=== PATIENT | male | born 1945 | race Caucasian/White ===

== ENCOUNTER 2016-07-10 08:53 | Outpatient (RCR) | payer MEDICARE, OTHER ==
--- OUTSIDE RECORDS SUMMARY | 2016-04-16 08:59 | XMS REPORT | Continuity of Care Document ---
Author Author [facility] Organization [facility] Address Unknown Phone Unavailable Care Team Providers Care Ichthyologist Name Role Phone PATRIZIA RAY MD PCP Insurance Providers Payer Name Policy Number Subscriber Name Relationship [employer] [id number] Zakia Armstrong Self / Same As Patient Comm Crossover Enter Ins Name [id number] Zakia Armstrong Self / Same As Patient Advance Directives Directive Response Recorded Date/Time Advance Directives No 01/06/16 1:15pm Health Care Power of Pastrycook'S Assistant No 01/06/16 1:15pm Organ Donor No 01/06/16 1:15pm Resuscitation Status Full Code 01/06/16 1:15pm Problems Active Problems Medical Problem Onset Date Status Anemia Unknown Acute Hematuria, gross Unknown Acute Pulmonary nodule seen on imaging study Unknown Acute Urinary retention with incomplete bladder emptying Unknown Acute Medications Current Home Medications Medication Dose Units Route Directions Days/Qty Instructions Start Date Hydrocodone/Acetaminophen 1 Each 1 Tab Oral Every 6 Hours as needed for Pain 60 01/12/16 Potassium Chloride 20 Meq 20 Meq Oral Daily@0700 30 01/12/16 Pantoprazole Sodium 40 Mg 40 Mg Oral Daily@0700 30 01/12/16 [Finasteride] 5 Mg 5 Mg Oral Daily@0900 30 01/12/16 Polyethylene Glycol 3350 17 Gm 17 Gm Oral Twice A Day 60 01/12/16 Tamsulosin Hcl 0.4 Mg 0.4 Mg Oral Daily 30 01/12/16 Past Home Medications Medication Directions Ordered Status Lisinopril 20 Mg Tab, 20 Mg Oral Daily 05/24/11 Discontinued Clobetasol Propionate 15 Gm Cream.gm., 0 Topical Twice A Day 05/24/11 Discontinued Cefuroxime Axetil (Ceftin) 500 Mg Tablet, 1 Each Oral Twice A Day 05/25/11 Discontinued Oxycodone Hcl/Acetaminophen 1 Each Tablet, 1 - 2 Each Oral Q4-6H Prn Discontinued Social History Social History Problem Response Recorded Date/Time Alcohol Use Denies Use 12/29/2015 11:19am Recreational Drug Use No 12/29/2015 11:19am Do you dip or chew tobacco? No 09/07/2015 3:55pm Hospital Discharge Instructions Patient Instructions Physician Instructions Patient Instructions/FollowUp: Dr Ray in [address] Castro as scheduled Restrict oral fluids to 1500cc/day Patient Problems: Ileus s/p Pneumonia Lung cancer s/p resection Colon cancer s/p resection [facility] [place] DISCHARGE ORDERS Height (Feet): 5 Height (Inches): 11.00 Weight (Pounds): 208 Weight (Ounces): 4.0 Reason Pt Homebound recent bowel surgery, pneumonia I Have Seen Pt Mqbl-[id number]: Yes Date of Face to Face: Jan 12, 2016 Discharged To: Home Diagnosis/Conditions HH Order: Medication administration Monitor vitals Monitor labs including sodium *I certify that based on my findings, the following services are medically necessary Home Health Services: Services: Nursing Services, Stitch Bonding Machine Operator-Evaluate & Treat, Physical Therapy-Evaluate & Treat My clinical findings support the need for the above services; see Diagnosis. Dicharge Diet: Low Residue Daily Activity as Tolerated: Yes New, Converted, or Re-newed RX: Transmited to Pharmacy I certify that this patient is under my care and that I, a nurse practitioner or a physician; a residential real estate assistant working with me, had a face to face encounter that - meets the physician face to face encounter requirements with this patient as dated. New, Converted or Re-Newed RX: Transmitted to Pharmacy Goal/Follow Up Appt: Dr Ray in 1 week Discharge Diet: Soft Diet Activity as Tolerated: Yes Care Plan Patient Instructions:: Dr Ray in 1 weekDr Castro as scheduledRestrict oral fluids to 1500cc/day Goal:: Dr Ray in 1 week Patient Problems: Ileuss/p PneumoniaLung cancer s/p resectionColon cancer s/p resection Plan of Care Discharge Date 01/13/16 12:08pm Disposition 06 HOME HEALTH SERVICE Instructions/Education Provided Bacterial Pneumonia (GEN) Prescriptions See Medication Section Referrals TROY SUAREZ MD (Unspecified) - 01/26/16 Address: [address] [place] [phone] Reason(s) for Referral: APPT AT 3:30 PM NADEEM CASTRO MD (Unspecified) - 01/27/16 Address: [address] [place] [address] [phone] Reason(s) for Referral: APPT AT 11 AM PATRIZIA RAY MD (Unspecified) - 01/19/16 Address: [address] [place] [address] [phone] Reason(s) for Referral: APPT AT 3:30PM Care Plan and Goals See Discharge Instructions Section Functional Status Query Response Date Recorded Patient Orientation Normal For Age January 12, 2016 9:24am Patient Orientation Person Place Time Situation Eyes Open January 13, 2016 12:19pm Comprehension Ability Understands Concepts January 12, 2016 8:51pm Allergies, Adverse Reactions, Alerts Allergen Type Severity Reaction Status Last Updated Penicillins ([id number]) Allergy Unknown Active 01/06/16 Latex Allergy Unknown HIVES Active 01/06/16 Immunizations Name Given Type Tetanus Booster (TDap) More than 5yrs Historical Vital Signs Acute Vital Signs Vital Response Date/Time Temperature (Fahrenheit) 97.8 degrees F (97.6 - 99.5) 01/13/2016 6:00am Temperature (Calculated Celsius) 36.17152 degrees C (36.4 - 37.5) 01/13/2016 6:00am Temperature Source Temporal 01/13/2016 6:00am Pulse Rate (adult) 97 bpm (60 - 90) 01/13/2016 6:00am Respiratory Rate 18 bpm (12 - 24) 01/13/2016 6:00am O2 Sat by Pulse Oximetry 94 % (88 - 100) 01/13/2016 6:53am Blood Pressure 127/73 mm Hg 01/13/2016 6:00am Blood Pressure Mean 91 mm Hg 01/13/2016 6:00am Pain Numeric Pain Scale 2 01/13/2016 9:31am Pain Intensity 3 01/12/2016 9:24am Height (Feet) 5 feet 12/29/2015 11:15am Height (Inches) 11.00 inches 12/29/2015 11:15am Height (Calculated Centimeters) 180.169146 cm 12/29/2015 11:15am Weight (Pounds) 202 pounds 01/13/2016 6:00am Weight (Ounces) 5.0 oz 01/13/2016 6:00am Weight (Calculated Grams) 03371.407 gm 01/13/2016 6:00am Weight (Calculated Kilograms) 91.652622 kilograms 01/13/2016 6:00am Calculated BMI 27.9 12/29/2015 11:15am Results Pending Laboratory Results Test Name Collection Date/Time Microbiology Results Procedure Source Result Collection Date/Time Result Date/Time Anaerobic Culture Tissue, Back No anaerobes isolated 11/25/2015 11:42am 12:31pm Wound Culture Tissue, Back STAPHYLOCOCCUS AUREUS 11/25/2015 11:42am 2015 9:29am STAPH, COAG NEG (PLUGMAN) 11/25/2015 11:42am 11/29/2015 9:29am Pending Microbiology Results Procedure Source Collection Date/Time Procedures Procedure Status Date Provider(s) COLONOSCOPY W/LESION REMOVAL Completed 12/16/15 NADEEM CASTRO MD COLONOSCOPY SUBMUCOUS NJX Completed 12/16/15 NADEEM CASTRO MD Resection of colon Completed 12/29/15 NADEEM CASTRO MD Insertion of triple lumen catheter Completed 12/29/15 NADEEM CASTRO MD Tracing only of electrocardiogram Completed 12/27/15 ERASMO FOLEY FISCAL AGENT Encounters Encounter Location Arrival/Admit Date Discharge/Depart Date Attending Provider Discharged Inpatient [facility] 01/06/16 1:07pm 12:08pm FABY HAQUE MD Discharged Inpatient [facility] 12/29/15 9:45am 12:44pm NADEEM CASTRO MD Departed Clinic [facility] 12/27/15 11:57am 12/27/15 12: 30pm NADEEM CASTRO MD Discharged Recurring [facility] 12/27/15 8:21am 12:00pm MICHAEL QUACH MD Departed [facility] 12/16/15 10:55am 12/16/15 2:00pm NADEEM CASTRO MD
[2016-04-16 09:44] LABS: BASOPHILS % (AUTO) 1 % (0-10); EOSINOPHILS % (AUTO) 0 % (0-10); LYMPHOCYTES # (AUTO) 1.5 X 10^3 (1.0-4.0); LYMPHOCYTES % (AUTO) 34 % (12-44); MEAN CORPUSCULAR HEMOGLOBIN 29 PG (25-34); MEAN CORPUSCULAR HGB CONC 34 G/DL (32-36); MEAN CORPUSCULAR VOLUME 85 FL (80-99); MEAN PLATELET VOLUME 10.6 FL (7.4-10.4); MONOCYTES # (AUTO) 0.6 X 10^3 (0.0-1.0); MONOCYTES % (AUTO) 14 % (0-12); NEUTROPHILS # (AUTO) 2.3 X 10^3 (1.8-7.8); NEUTROPHILS % (AUTO) 51 % (42-75); PLATELET COUNT 258 10^3/uL (130-400); RED BLOOD COUNT 4.17 10^6/uL (4.35-5.85); RED CELL DISTRIBUTION WIDTH 15.9 % (10.0-14.5); WHITE BLOOD COUNT 4.5 10^3/uL (4.3-11.0)
[2016-04-16 10:31] LABS: ANION GAP 11 MMOL/L (5-14); BLOOD UREA NITROGEN 4 MG/DL (7-18); BUN/CREATININE RATIO 5; CALCIUM 8.7 MG/DL (8.5-10.1); CARBON DIOXIDE 23 MMOL/L (21-32); CHLORIDE 104 MMOL/L (98-107); GFR ESTIMATED > 60; GLUCOSE 98 MG/DL (70-105); POTASSIUM 3.8 MMOL/L (3.6-5.0); SODIUM 138 MMOL/L (135-145)
[2016-04-24 13:46] LABS: BASOPHILS # (AUTO) 0.1 10^3/uL (0.0-0.1); BASOPHILS % (AUTO) 1 % (0-10); EOSINOPHILS % (AUTO) 0 % (0-10); LYMPHOCYTES # (AUTO) 1.5 X 10^3 (1.0-4.0); LYMPHOCYTES % (AUTO) 24 % (12-44); MEAN CORPUSCULAR HEMOGLOBIN 28 PG (25-34); MEAN CORPUSCULAR HGB CONC 33 G/DL (32-36); MEAN CORPUSCULAR VOLUME 84 FL (80-99); MONOCYTES # (AUTO) 0.7 X 10^3 (0.0-1.0); MONOCYTES % (AUTO) 12 % (0-12); NEUTROPHILS # (AUTO) 3.9 X 10^3 (1.8-7.8); NEUTROPHILS % (AUTO) 63 % (42-75); PLATELET COUNT 196 10^3/uL (130-400); RED BLOOD COUNT 4.07 10^6/uL (4.35-5.85); RED CELL DISTRIBUTION WIDTH 15.7 % (10.0-14.5); WHITE BLOOD COUNT 6.1 10^3/uL (4.3-11.0)
[2016-04-24 14:18] LABS: ALANINE AMINOTRANSFERASE 13 U/L (0-55); ALBUMIN 3.7 G/DL (3.2-4.5); ANION GAP 13 MMOL/L (5-14); ASPARTATE AMINO TRANSFERASE 13 U/L (5-34); BILIRUBIN,TOTAL 0.3 MG/DL (0.1-1.0); BLOOD UREA NITROGEN 5 MG/DL (7-18); BUN/CREATININE RATIO 6; CALCIUM 8.5 MG/DL (8.5-10.1); CARBON DIOXIDE 21 MMOL/L (21-32); CHLORIDE 105 MMOL/L (98-107); CREATININE SERUM 0.78 MG/DL (0.60-1.30); GFR ESTIMATED > 60; GLUCOSE 96 MG/DL (70-105); MAGNESIUM 1.7 MG/DL (1.8-2.4); POTASSIUM 3.2 MMOL/L (3.6-5.0); SODIUM 139 MMOL/L (135-145); TOTAL PROTEIN 6.3 G/DL (6.4-8.2)
[2016-04-30 09:22] LABS: BASOPHILS # (AUTO) 0.1 10^3/uL (0.0-0.1); BASOPHILS % (AUTO) 1 % (0-10); EOSINOPHILS % (AUTO) 0 % (0-10); LYMPHOCYTES # (AUTO) 1.5 X 10^3 (1.0-4.0); LYMPHOCYTES % (AUTO) 31 % (12-44); MEAN CORPUSCULAR HEMOGLOBIN 29 PG (25-34); MEAN CORPUSCULAR HGB CONC 34 G/DL (32-36); MEAN CORPUSCULAR VOLUME 84 FL (80-99); MEAN PLATELET VOLUME 11.4 FL (7.4-10.4); MONOCYTES # (AUTO) 0.2 X 10^3 (0.0-1.0); MONOCYTES % (AUTO) 4 % (0-12); NEUTROPHILS # (AUTO) 3.1 X 10^3 (1.8-7.8); NEUTROPHILS % (AUTO) 64 % (42-75); PLATELET COUNT 180 10^3/uL (130-400); RED CELL DISTRIBUTION WIDTH 15.4 % (10.0-14.5); WHITE BLOOD COUNT 4.8 10^3/uL (4.3-11.0)
[2016-04-30 09:46] LABS: ANION GAP 6 MMOL/L (5-14); BLOOD UREA NITROGEN 7 MG/DL (7-18); BUN/CREATININE RATIO 10; CALCIUM 8.3 MG/DL (8.5-10.1); CARBON DIOXIDE 28 MMOL/L (21-32); CHLORIDE 106 MMOL/L (98-107); CREATININE SERUM 0.72 MG/DL (0.60-1.30); GFR ESTIMATED > 60; GLUCOSE 108 MG/DL (70-105); POTASSIUM 3.4 MMOL/L (3.6-5.0); SODIUM 140 MMOL/L (135-145)
[2016-05-07 09:26] LABS: BASOPHILS % (AUTO) 1 % (0-10); EOSINOPHILS % (AUTO) 1 % (0-10); LYMPHOCYTES # (AUTO) 1.2 X 10^3 (1.0-4.0); LYMPHOCYTES % (AUTO) 29 % (12-44); MEAN CORPUSCULAR HEMOGLOBIN 29 PG (25-34); MEAN CORPUSCULAR HGB CONC 34 G/DL (32-36); MEAN CORPUSCULAR VOLUME 85 FL (80-99); MEAN PLATELET VOLUME 11.6 FL (7.4-10.4); MONOCYTES # (AUTO) 0.3 X 10^3 (0.0-1.0); MONOCYTES % (AUTO) 7 % (0-12); NEUTROPHILS # (AUTO) 2.6 X 10^3 (1.8-7.8); NEUTROPHILS % (AUTO) 62 % (42-75); PLATELET COUNT 182 10^3/uL (130-400); RED BLOOD COUNT 4.31 10^6/uL (4.35-5.85); WHITE BLOOD COUNT 4.2 10^3/uL (4.3-11.0)
[2016-05-07 10:26] LABS: ANION GAP 10 MMOL/L (5-14); BLOOD UREA NITROGEN 5 MG/DL (7-18); BUN/CREATININE RATIO 7; CALCIUM 8.6 MG/DL (8.5-10.1); CARBON DIOXIDE 23 MMOL/L (21-32); CHLORIDE 105 MMOL/L (98-107); CREATININE SERUM 0.73 MG/DL (0.60-1.30); GFR ESTIMATED > 60; GLUCOSE 87 MG/DL (70-105); POTASSIUM 3.8 MMOL/L (3.6-5.0); SODIUM 138 MMOL/L (135-145)
[2016-05-14 10:08] LABS: BASOPHILS % (AUTO) 1 % (0-10); EOSINOPHILS % (AUTO) 1 % (0-10); LYMPHOCYTES # (AUTO) 1.3 X 10^3 (1.0-4.0); LYMPHOCYTES % (AUTO) 30 % (12-44); MEAN CORPUSCULAR HEMOGLOBIN 29 PG (25-34); MEAN CORPUSCULAR HGB CONC 34 G/DL (32-36); MEAN CORPUSCULAR VOLUME 85 FL (80-99); MEAN PLATELET VOLUME 10.4 FL (7.4-10.4); MONOCYTES # (AUTO) 0.4 X 10^3 (0.0-1.0); MONOCYTES % (AUTO) 11 % (0-12); NEUTROPHILS # (AUTO) 2.4 X 10^3 (1.8-7.8); NEUTROPHILS % (AUTO) 58 % (42-75); PLATELET COUNT 210 10^3/uL (130-400); RED BLOOD COUNT 4.03 10^6/uL (4.35-5.85); RED CELL DISTRIBUTION WIDTH 16.3 % (10.0-14.5); WHITE BLOOD COUNT 4.2 10^3/uL (4.3-11.0)
[2016-05-14 10:40] LABS: ANION GAP 6 MMOL/L (5-14); BLOOD UREA NITROGEN 6 MG/DL (7-18); BUN/CREATININE RATIO 8; CALCIUM 8.5 MG/DL (8.5-10.1); CARBON DIOXIDE 30 MMOL/L (21-32); CHLORIDE 103 MMOL/L (98-107); CREATININE SERUM 0.77 MG/DL (0.60-1.30); GFR ESTIMATED > 60; GLUCOSE 101 MG/DL (70-105); POTASSIUM 4.1 MMOL/L (3.6-5.0); SODIUM 139 MMOL/L (135-145)
[2016-05-21 14:49] LABS: BASOPHILS % (AUTO) 0 % (0-10); EOSINOPHILS % (AUTO) 0 % (0-10); LYMPHOCYTES # (AUTO) 1.1 X 10^3 (1.0-4.0); LYMPHOCYTES % (AUTO) 23 % (12-44); MEAN CORPUSCULAR HEMOGLOBIN 28 PG (25-34); MEAN CORPUSCULAR HGB CONC 33 G/DL (32-36); MEAN CORPUSCULAR VOLUME 85 FL (80-99); MEAN PLATELET VOLUME 11.4 FL (7.4-10.4); MONOCYTES # (AUTO) 0.7 X 10^3 (0.0-1.0); MONOCYTES % (AUTO) 13 % (0-12); NEUTROPHILS # (AUTO) 3.2 X 10^3 (1.8-7.8); NEUTROPHILS % (AUTO) 63 % (42-75); PLATELET COUNT 133 10^3/uL (130-400); RED BLOOD COUNT 3.96 10^6/uL (4.35-5.85); RED CELL DISTRIBUTION WIDTH 16.6 % (10.0-14.5)
[2016-05-21 15:35] LABS: ALANINE AMINOTRANSFERASE 23 U/L (0-55); ALBUMIN 3.7 G/DL (3.2-4.5); ANION GAP 14 MMOL/L (5-14); ASPARTATE AMINO TRANSFERASE 28 U/L (5-34); BILIRUBIN,TOTAL 0.4 MG/DL (0.1-1.0); BLOOD UREA NITROGEN 7 MG/DL (7-18); BUN/CREATININE RATIO 9; CALCIUM 7.9 MG/DL (8.5-10.1); CARBON DIOXIDE 20 MMOL/L (21-32); CHLORIDE 106 MMOL/L (98-107); CREATININE SERUM 0.79 MG/DL (0.60-1.30); GFR ESTIMATED > 60; GLUCOSE 85 MG/DL (70-105); MAGNESIUM 1.8 MG/DL (1.8-2.4); POTASSIUM 3.3 MMOL/L (3.6-5.0); SODIUM 140 MMOL/L (135-145); TOTAL PROTEIN 6.3 G/DL (6.4-8.2)
[2016-05-28 08:59] LABS: BASOPHILS # (AUTO) 0.1 10^3/uL (0.0-0.1); BASOPHILS % (AUTO) 1 % (0-10); EOSINOPHILS % (AUTO) 0 % (0-10); LYMPHOCYTES # (AUTO) 1.3 X 10^3 (1.0-4.0); LYMPHOCYTES % (AUTO) 24 % (12-44); MEAN CORPUSCULAR HEMOGLOBIN 29 PG (25-34); MEAN CORPUSCULAR HGB CONC 34 G/DL (32-36); MEAN CORPUSCULAR VOLUME 85 FL (80-99); MEAN PLATELET VOLUME 11.4 FL (7.4-10.4); MONOCYTES # (AUTO) 0.4 X 10^3 (0.0-1.0); MONOCYTES % (AUTO) 7 % (0-12); NEUTROPHILS # (AUTO) 3.6 X 10^3 (1.8-7.8); NEUTROPHILS % (AUTO) 68 % (42-75); PLATELET COUNT 207 10^3/uL (130-400); RED BLOOD COUNT 4.06 10^6/uL (4.35-5.85); WHITE BLOOD COUNT 5.3 10^3/uL (4.3-11.0)
[2016-05-28 09:15] LABS: ANION GAP 10 MMOL/L (5-14); BLOOD UREA NITROGEN 6 MG/DL (7-18); BUN/CREATININE RATIO 8; CALCIUM 8.5 MG/DL (8.5-10.1); CARBON DIOXIDE 26 MMOL/L (21-32); CHLORIDE 104 MMOL/L (98-107); CREATININE SERUM 0.76 MG/DL (0.60-1.30); GFR ESTIMATED > 60; GLUCOSE 87 MG/DL (70-105); POTASSIUM 3.5 MMOL/L (3.6-5.0); SODIUM 140 MMOL/L (135-145)
[2016-06-04 09:28] LABS: BASOPHILS % (AUTO) 1 % (0-10); EOSINOPHILS % (AUTO) 1 % (0-10); LYMPHOCYTES # (AUTO) 0.8 X 10^3 (1.0-4.0); LYMPHOCYTES % (AUTO) 26 % (12-44); MEAN CORPUSCULAR HEMOGLOBIN 29 PG (25-34); MEAN CORPUSCULAR HGB CONC 34 G/DL (32-36); MEAN CORPUSCULAR VOLUME 85 FL (80-99); MEAN PLATELET VOLUME 10.6 FL (7.4-10.4); MONOCYTES # (AUTO) 0.3 X 10^3 (0.0-1.0); MONOCYTES % (AUTO) 9 % (0-12); NEUTROPHILS # (AUTO) 1.8 X 10^3 (1.8-7.8); NEUTROPHILS % (AUTO) 63 % (42-75); PLATELET COUNT 190 10^3/uL (130-400); RED BLOOD COUNT 3.67 10^6/uL (4.35-5.85); RED CELL DISTRIBUTION WIDTH 17.3 % (10.0-14.5); WHITE BLOOD COUNT 2.9 10^3/uL (4.3-11.0)
[2016-06-04 09:48] LABS: ANION GAP 9 MMOL/L (5-14); BLOOD UREA NITROGEN 6 MG/DL (7-18); BUN/CREATININE RATIO 8; CALCIUM 8.3 MG/DL (8.5-10.1); CARBON DIOXIDE 26 MMOL/L (21-32); CHLORIDE 102 MMOL/L (98-107); CREATININE SERUM 0.74 MG/DL (0.60-1.30); GFR ESTIMATED > 60; GLUCOSE 101 MG/DL (70-105); POTASSIUM 3.5 MMOL/L (3.6-5.0); SODIUM 137 MMOL/L (135-145)
[2016-06-11 09:17] LABS: BASOPHILS % (AUTO) 0 % (0-10); EOSINOPHILS % (AUTO) 1 % (0-10); LYMPHOCYTES # (AUTO) 0.9 X 10^3 (1.0-4.0); LYMPHOCYTES % (AUTO) 25 % (12-44); MEAN CORPUSCULAR HEMOGLOBIN 29 PG (25-34); MEAN CORPUSCULAR HGB CONC 35 G/DL (32-36); MEAN CORPUSCULAR VOLUME 85 FL (80-99); MEAN PLATELET VOLUME 10.1 FL (7.4-10.4); MONOCYTES # (AUTO) 0.4 X 10^3 (0.0-1.0); MONOCYTES % (AUTO) 12 % (0-12); NEUTROPHILS # (AUTO) 2.4 X 10^3 (1.8-7.8); NEUTROPHILS % (AUTO) 63 % (42-75); PLATELET COUNT 184 10^3/uL (130-400); RED BLOOD COUNT 3.92 10^6/uL (4.35-5.85); RED CELL DISTRIBUTION WIDTH 18.2 % (10.0-14.5); WHITE BLOOD COUNT 3.8 10^3/uL (4.3-11.0)
[2016-06-11 09:42] LABS: ANION GAP 10 MMOL/L (5-14); BLOOD UREA NITROGEN 9 MG/DL (7-18); BUN/CREATININE RATIO 9; CALCIUM 8.3 MG/DL (8.5-10.1); CARBON DIOXIDE 25 MMOL/L (21-32); CHLORIDE 97 MMOL/L (98-107); CREATININE SERUM 1.03 MG/DL (0.60-1.30); GFR ESTIMATED > 60; GLUCOSE 116 MG/DL (70-105); POTASSIUM 3.7 MMOL/L (3.6-5.0); SODIUM 132 MMOL/L (135-145)
--- NOTE | 2016-06-12 10:44 | Diagnostic Imaging Report ---
INDICATION: Weakness and history of lung cancer. Comparison is made with prior examination 01/20/16. FINDINGS: The heart size is normal. Some scarring or atelectasis in the left lung base. There is a smaller pleural effusion. There is no pneumothorax. Mediastinum is unremarkable. IMPRESSION: Scarring or atelectasis in the left lung base with a small left pleural effusion Dictated by: Dictated on workstation # [id number]
[2016-06-18 08:58] LABS: BASOPHILS % (AUTO) 0 % (0-10); EOSINOPHILS % (AUTO) 1 % (0-10); LYMPHOCYTES # (AUTO) 1.4 X 10^3 (1.0-4.0); LYMPHOCYTES % (AUTO) 22 % (12-44); MEAN CORPUSCULAR HEMOGLOBIN 29 PG (25-34); MEAN CORPUSCULAR HGB CONC 35 G/DL (32-36); MEAN CORPUSCULAR VOLUME 84 FL (80-99); MEAN PLATELET VOLUME 11.8 FL (7.4-10.4); MONOCYTES # (AUTO) 0.6 X 10^3 (0.0-1.0); MONOCYTES % (AUTO) 10 % (0-12); NEUTROPHILS # (AUTO) 4.1 X 10^3 (1.8-7.8); NEUTROPHILS % (AUTO) 67 % (42-75); PLATELET COUNT 227 10^3/uL (130-400); RED BLOOD COUNT 3.53 10^6/uL (4.35-5.85); RED CELL DISTRIBUTION WIDTH 18.4 % (10.0-14.5); WHITE BLOOD COUNT 6.2 10^3/uL (4.3-11.0)
[2016-06-18 09:25] LABS: ALANINE AMINOTRANSFERASE 14 U/L (0-55); ALBUMIN 3.3 G/DL (3.2-4.5); ANION GAP 11 MMOL/L (5-14); ASPARTATE AMINO TRANSFERASE 19 U/L (5-34); BILIRUBIN,TOTAL 0.4 MG/DL (0.1-1.0); BLOOD UREA NITROGEN 7 MG/DL (7-18); BUN/CREATININE RATIO 9; CALCIUM 7.8 MG/DL (8.5-10.1); CARBON DIOXIDE 25 MMOL/L (21-32); CHLORIDE 99 MMOL/L (98-107); CREATININE SERUM 0.74 MG/DL (0.60-1.30); GFR ESTIMATED > 60; GLUCOSE 108 MG/DL (70-105); MAGNESIUM 1.4 MG/DL (1.8-2.4); POTASSIUM 2.9 MMOL/L (3.6-5.0); SODIUM 135 MMOL/L (135-145); TOTAL PROTEIN 6.4 G/DL (6.4-8.2)
[2016-06-25 08:49] LABS: BASOPHILS # (AUTO) 0.1 10^3/uL (0.0-0.1); BASOPHILS % (AUTO) 2 % (0-10); EOSINOPHILS # (AUTO) 0.1 10^3/uL (0.0-0.3); EOSINOPHILS % (AUTO) 2 % (0-10); LYMPHOCYTES # (AUTO) 1.1 X 10^3 (1.0-4.0); LYMPHOCYTES % (AUTO) 27 % (12-44); MEAN CORPUSCULAR HEMOGLOBIN 30 PG (25-34); MEAN CORPUSCULAR HGB CONC 34 G/DL (32-36); MEAN CORPUSCULAR VOLUME 88 FL (80-99); MEAN PLATELET VOLUME 10.4 FL (7.4-10.4); MONOCYTES # (AUTO) 0.4 X 10^3 (0.0-1.0); MONOCYTES % (AUTO) 9 % (0-12); NEUTROPHILS # (AUTO) 2.5 X 10^3 (1.8-7.8); NEUTROPHILS % (AUTO) 60 % (42-75); PLATELET COUNT 261 10^3/uL (130-400); RED BLOOD COUNT 3.35 10^6/uL (4.35-5.85); RED CELL DISTRIBUTION WIDTH 19.3 % (10.0-14.5); WHITE BLOOD COUNT 4.2 10^3/uL (4.3-11.0)
[2016-06-25 09:09] LABS: ANION GAP 8 MMOL/L (5-14); BLOOD UREA NITROGEN 7 MG/DL (7-18); BUN/CREATININE RATIO 10; CALCIUM 8.4 MG/DL (8.5-10.1); CARBON DIOXIDE 27 MMOL/L (21-32); CHLORIDE 103 MMOL/L (98-107); CREATININE SERUM 0.71 MG/DL (0.60-1.30); GFR ESTIMATED > 60; GLUCOSE 91 MG/DL (70-105); MAGNESIUM 1.7 MG/DL (1.8-2.4); POTASSIUM 3.8 MMOL/L (3.6-5.0); SODIUM 138 MMOL/L (135-145)
[2016-07-02 08:51] LABS: BASOPHILS # (AUTO) 0.1 10^3/uL (0.0-0.1); BASOPHILS % (AUTO) 2 % (0-10); EOSINOPHILS # (AUTO) 0.1 10^3/uL (0.0-0.3); EOSINOPHILS % (AUTO) 2 % (0-10); LYMPHOCYTES % (AUTO) 33 % (12-44); MEAN CORPUSCULAR HEMOGLOBIN 31 PG (25-34); MEAN CORPUSCULAR HGB CONC 34 G/DL (32-36); MEAN CORPUSCULAR VOLUME 91 FL (80-99); MEAN PLATELET VOLUME 10.4 FL (7.4-10.4); MONOCYTES # (AUTO) 0.4 X 10^3 (0.0-1.0); MONOCYTES % (AUTO) 13 % (0-12); NEUTROPHILS # (AUTO) 1.5 X 10^3 (1.8-7.8); NEUTROPHILS % (AUTO) 50 % (42-75); PLATELET COUNT 248 10^3/uL (130-400); RED BLOOD COUNT 3.54 10^6/uL (4.35-5.85); RED CELL DISTRIBUTION WIDTH 21.8 % (10.0-14.5)
[2016-07-02 09:09] LABS: ANION GAP 9 MMOL/L (5-14); BLOOD UREA NITROGEN 8 MG/DL (7-18); BUN/CREATININE RATIO 10; CALCIUM 8.7 MG/DL (8.5-10.1); CARBON DIOXIDE 23 MMOL/L (21-32); CHLORIDE 103 MMOL/L (98-107); CREATININE SERUM 0.83 MG/DL (0.60-1.30); GFR ESTIMATED > 60; GLUCOSE 115 MG/DL (70-105); POTASSIUM 4.3 MMOL/L (3.6-5.0); SODIUM 135 MMOL/L (135-145)
[~2016-07-10] VITALS: Ht 179.1 cm; Wt 78.5 kg
[~2016-07-10 08:53] MED LIST: ALFU10TA11 PO; CARBOPLATIN IV SCH; CEFU500T5 PO; CLOB15CR3 TP; FAMOTIDINE 20MG/2ML IV (CANCER CTR) IV SCH; FLU TRIvalent (5 YOA+) 2016-17 (CANCER CTR) 0.5 ML IM ONE; Finasteride PO; HYDR-3730 PO; HYDR-3812 PO; LEVO750T9 PO; LSNP20T PO; MAGNESIUM SULFATE IV ONE; NORMAL SALINE IV SCH; NS IV 1000 ML (CANCER CTR) 1,000 ML ONE; NS IV 500 ML (CANCER CENTER) 500 ML IV SCH; ONDA4TAB8 PO; OXYC-12 PO; PACLITAXEL SEMI SYNTHETIC IV SCH; PALONOSETRON HCL 0.25 MG, DEXAMETHASONE PF INJ (CANCER C 10 MG in NS (IVPB) CANCER CENT... IV PRN; PANT40TA3 PO; POLY17PO23 PO; POTA20TA8 PO; POTASSIUM CHL IV ONE; TAMS0.4C2 PO; [UNRECOGNIZED DRUG - OTHER] IV ONE; [UNRECOGNIZED DRUG - OTHER] IV SCH; diphenhydrAMINE 25 MG TAB (BENADRYL) CANCER CENTER PO ONE; diphenhydrAMINE 25 MG TAB (BENADRYL) CANCER CENTER PO SCH; diphenhydrAMINE 25 MG TAB (BENADRYL) PO SCH
[2016-07-10 09:20] LABS: BASOPHILS % (AUTO) 0 % (0-10); EOSINOPHILS % (AUTO) 0 % (0-10); LYMPHOCYTES # (AUTO) 1.2 X 10^3 (1.0-4.0); LYMPHOCYTES % (AUTO) 22 % (12-44); MEAN CORPUSCULAR HEMOGLOBIN 34 PG (25-34); MEAN CORPUSCULAR HGB CONC 35 G/DL (32-36); MEAN CORPUSCULAR VOLUME 97 FL (80-99); MEAN PLATELET VOLUME 10.3 FL (7.4-10.4); MONOCYTES # (AUTO) 0.2 X 10^3 (0.0-1.0); MONOCYTES % (AUTO) 4 % (0-12); NEUTROPHILS % (AUTO) 75 % (42-75); PLATELET COUNT 284 10^3/uL (130-400); RED BLOOD COUNT 3.22 10^6/uL (4.35-5.85); RED CELL DISTRIBUTION WIDTH 23.3 % (10.0-14.5); WHITE BLOOD COUNT 5.4 10^3/uL (4.3-11.0)
[2016-07-10 09:32] LABS: ANION GAP 10 MMOL/L (5-14); BLOOD UREA NITROGEN 11 MG/DL (7-18); BUN/CREATININE RATIO 13; CARBON DIOXIDE 22 MMOL/L (21-32); CHLORIDE 103 MMOL/L (98-107); CREATININE SERUM 0.83 MG/DL (0.60-1.30); GFR ESTIMATED > 60; GLUCOSE 143 MG/DL (70-105); POTASSIUM 4.5 MMOL/L (3.6-5.0); SODIUM 135 MMOL/L (135-145)
== END 2016-07-15 | disposition home or self-care (01) ==
LOC: ONC 08:53
PROVIDERS: ATTEND Internal Medicine Hematology & Oncology
DX: Z51.11 Encounter for antineoplastic chemotherapy (principal); C34.32 Malignant neoplasm of lower lobe, left bronchus or lung; C77.1 Secondary and unspecified malignant neoplasm of intrathoracic lymph nodes; Z87.891 Personal history of nicotine dependence; Z23 Encounter for immunization
CPT/HCPCS: 36415; 71020; 80048; 80053; 83735; 85025; 90471; 96360; 96361; 96368; 96375; 96413; 96417; 99213

== ENCOUNTER 2016-10-10 09:21 | Outpatient (RCR) | payer MEDICARE, OTHER ==
--- OUTSIDE RECORDS SUMMARY | 2016-07-19 14:55 | XMS REPORT | Continuity of Care Document ---
Author Author [facility] Organization [facility] Address Unknown Phone Unavailable Care Team Providers Care Coat Baster Name Role Phone PATRIZIA RAY MD PCP Insurance Providers Payer Name Policy Number Subscriber Name Relationship [employer] [id number] Zakia Armstrong Self / Same As Patient Comm Crossover Enter Ins Name [id number] Zakia Armstrong Self / Same As Patient Advance Directives Directive Response Recorded Date/Time Advance Directives No 01/06/16 1:15pm Health Care Power of Model Set Artist No 01/06/16 1:15pm Organ Donor No 01/06/16 [...] s/p resection Colon cancer s/p resection [facility] [place], [place] DISCHARGE ORDERS Height (Feet): 5 Height (Inches): 11.00 Weight (Pounds): 208 Weight (Ounces): 4.0 Reason Pt Homebound recent bowel surgery, pneumonia I Have Seen Pt Pgyf-dw-Vtag: Yes Date of Face to Face: Jan 12, 2016 Discharged To: Home Diagnosis/Conditions HH Order: Medication administration Monitor vitals Monitor labs including sodium *I certify that based on my findings, the following services are medically necessary Home Health Services: Services: Nursing Services, Shoes Salesperson-Evaluate & Treat, Physical Therapy-Evaluate & Treat My clinical findings support the need for the above services; see Diagnosis. Dicharge Diet: Low Residue Daily Activity as Tolerated: Yes New, Converted, or Re-newed RX: Transmited to Pharmacy I certify that this patient is under my care and that I, a nurse practitioner or a physician; a personal banking assistant working with me, had a face [...] SUAREZ MD (Unspecified) - 01/26/16 Address: [address] [place] [phone] Reason(s) for Referral: APPT AT 3:30 PM NADEEM CASTRO MD (Unspecified) - 01/27/16 Address: [address] [place] [address] [phone] Reason(s) for Referral: APPT AT 11 AM PATRIZIA RAY MD (Unspecified) - 01/19/16 Address: [address] [place] [address] [phone] Reason(s) for Referral: APPT AT 3:30PM Care Plan and Goals See Discharge Instructions Section Functional Status Query Response Date Recorded Patient Orientation Normal For Age January 12, 2016 9:24am Patient Orientation Person Place Time Situation Eyes Open January 13, 2016 12:19pm Comprehension Ability Understands Concepts January 12, 2016 8:51pm Allergies, Adverse Reactions, Alerts Allergen Type Severity Reaction Status Last Updated Penicillins ([id number]) Allergy Unknown Active 01/06/16 Latex Allergy Unknown HIVES Active 01/06/16 Immunizations Name Given Type Tetanus Booster (TDap) More than 5yrs Historical Vital Signs Acute Vital Signs Vital Response Date/Time Temperature (Fahrenheit) 97.8 degrees F (97.6 - 99.5) 01/13/2016 6:00am Temperature (Calculated Celsius) 36.58744 degrees C (36.4 - 37.5) 01/13/2016 6:00am [...] 11.00 inches 12/29/2015 11:15am Height (Calculated Centimeters) 180.314992 cm 12/29/2015 11:15am Weight (Pounds) 202 pounds 01/13/2016 6:00am Weight (Ounces) 5.0 oz 01/13/2016 6:00am Weight (Calculated Grams) 11800.407 gm 01/13/2016 6:00am Weight (Calculated Kilograms) 91.541066 kilograms 01/13/2016 6:00am Calculated BMI 27.9 12/29/2015 11:15am Results Pending Laboratory Results Test Name Collection Date/Time Microbiology Results Procedure Source Result Collection Date/Time Result Date/Time Anaerobic Culture Tissue, Back No anaerobes isolated 11/25/2015 11:42am 12:31pm Wound Culture Tissue, Back STAPHYLOCOCCUS AUREUS 11/25/2015 11:42am 2015 9:29am STAPH, COAG NEG (RELEASE MANAGER) 11/25/2015 11:42am 11/29/2015 9:29am Pending Microbiology Results Procedure Source Collection Date/Time Procedures Procedure Status Date Provider(s) COLONOSCOPY W/LESION REMOVAL Completed 12/16/15 NADEEM CASTRO MD COLONOSCOPY SUBMUCOUS NJX Completed 12/16/15 NADEEM CASTRO MD Resection of colon Completed 12/29/15 NADEEM CASTRO MD Insertion of triple lumen catheter Completed 12/29/15 NADEEM CASTRO MD Tracing only of electrocardiogram Completed 12/27/15 ERASMO FOLEY ACCOUNT MANAGEMENT SPECIALIST Encounters Encounter Location Arrival/Admit Date Discharge/Depart Date Attending Provider Discharged Inpatient [facility] 01/06/16 1:07pm 12:08pm FABY HAQUE MD Discharged Inpatient [facility] 12/29/15 9:45am 12:44pm NADEEM CASTRO MD Departed Clinic [facility] 12/27/15 11:57am 12/27/15 12: 30pm NADEEM CASTRO MD Discharged Recurring [facility] 12/27/15 8:21am 12:00pm MICHAEL QUACH MD Departed [facility] 12/16/15 10:55am 12/16/15 2:00pm NADEEM CASTRO MD
[2016-07-19 15:04] LABS: BASOPHILS % (AUTO) 1 % (0-10); EOSINOPHILS % (AUTO) 0 % (0-10); LYMPHOCYTES # (AUTO) 1.7 X 10^3 (1.0-4.0); LYMPHOCYTES % (AUTO) 28 % (12-44); MEAN CORPUSCULAR HGB CONC 33 G/DL (32-36); MEAN CORPUSCULAR VOLUME 92 FL (80-99); MEAN PLATELET VOLUME 10.3 FL (7.4-10.4); MONOCYTES % (AUTO) 15 % (0-12); NEUTROPHILS # (AUTO) 3.5 X 10^3 (1.8-7.8); NEUTROPHILS % (AUTO) 56 % (42-75); PLATELET COUNT 224 10^3/uL (130-400); RED BLOOD COUNT 3.61 10^6/uL (4.35-5.85); RED CELL DISTRIBUTION WIDTH 20.5 % (10.0-14.5); WHITE BLOOD COUNT 6.2 10^3/uL (4.3-11.0)
[2016-07-19 15:05] LABS: MEAN CORPUSCULAR HEMOGLOBIN 30 PG (25-34)
[2016-07-19 15:46] LABS: ALANINE AMINOTRANSFERASE 26 U/L (0-55); ALBUMIN 3.9 G/DL (3.2-4.5); ANION GAP 9 MMOL/L (5-14); ASPARTATE AMINO TRANSFERASE 20 U/L (5-34); BILIRUBIN,TOTAL 0.2 MG/DL (0.1-1.0); BLOOD UREA NITROGEN 9 MG/DL (7-18); BUN/CREATININE RATIO 12; CALCIUM 8.6 MG/DL (8.5-10.1); CARBON DIOXIDE 24 MMOL/L (21-32); CHLORIDE 103 MMOL/L (98-107); CREATININE SERUM 0.77 MG/DL (0.60-1.30); GFR ESTIMATED > 60; GLUCOSE 91 MG/DL (70-105); MAGNESIUM 1.8 MG/DL (1.8-2.4); POTASSIUM 3.7 MMOL/L (3.6-5.0); SODIUM 136 MMOL/L (135-145)
[~2016-10-10 09:21] MED LIST changes: -BARIUM SUSPENSION 2.1% (VANILLA SILQ) 450 ML PO ONE; -CATHETER FLUSH 10 ML SYR IV PRN; -IOHEXOL 350 MG/ML 100 ML (OMNIPAQUE 350) VIAL IV ONE; -NS 100 ML (IVPB) BAG IV ONE
[2016-10-10 09:28] LABS: BASOPHILS % (AUTO) 0 % (0-10); EOSINOPHILS % (AUTO) 0 % (0-10); LYMPHOCYTES # (AUTO) 1.6 X 10^3 (1.0-4.0); LYMPHOCYTES % (AUTO) 20 % (12-44); MEAN CORPUSCULAR HEMOGLOBIN 29 PG (25-34); MEAN CORPUSCULAR HGB CONC 34 G/DL (32-36); MEAN CORPUSCULAR VOLUME 86 FL (80-99); MEAN PLATELET VOLUME 10.9 FL (7.4-10.4); MONOCYTES # (AUTO) 0.4 X 10^3 (0.0-1.0); MONOCYTES % (AUTO) 5 % (0-12); NEUTROPHILS # (AUTO) 6.1 X 10^3 (1.8-7.8); NEUTROPHILS % (AUTO) 75 % (42-75); PLATELET COUNT 248 10^3/uL (130-400); RED CELL DISTRIBUTION WIDTH 13.7 % (10.0-14.5); WHITE BLOOD COUNT 8.1 10^3/uL (4.3-11.0)
[2016-10-10 10:15] LABS: ALANINE AMINOTRANSFERASE 16 U/L (0-55); ALBUMIN 4.2 G/DL (3.2-4.5); ANION GAP 9 MMOL/L (5-14); ASPARTATE AMINO TRANSFERASE 15 U/L (5-34); BILIRUBIN,TOTAL 0.4 MG/DL (0.1-1.0); BLOOD UREA NITROGEN 9 MG/DL (7-18); BUN/CREATININE RATIO 9; CALCIUM 9.3 MG/DL (8.5-10.1); CARBON DIOXIDE 28 MMOL/L (21-32); CHLORIDE 103 MMOL/L (98-107); CREATININE SERUM 1.03 MG/DL (0.60-1.30); GFR ESTIMATED > 60; GLUCOSE 129 MG/DL (70-105); POTASSIUM 4.8 MMOL/L (3.6-5.0); SODIUM 140 MMOL/L (135-145); TOTAL PROTEIN 7.9 G/DL (6.4-8.2)
== END 2016-10-17 | disposition home or self-care (01) ==
LOC: ONC 09:21
PROVIDERS: ATTEND Internal Medicine Hematology & Oncology
DX: C34.32 Malignant neoplasm of lower lobe, left bronchus or lung (principal); C77.1 Secondary and unspecified malignant neoplasm of intrathoracic lymph nodes; Z87.891 Personal history of nicotine dependence; Z23 Encounter for immunization
CPT/HCPCS: 36415; 80053; 82378; 83735; 85025; 99213

== ENCOUNTER → 2016-10-10 | Outpatient (CLI) | payer MEDICARE, OTHER ==
[~2016-10-10] MED LIST changes: +BARIUM SUSPENSION 2.1% (VANILLA SILQ) 450 ML PO ONE; -CARBOPLATIN IV SCH; +CATHETER FLUSH 10 ML SYR IV PRN; -FAMOTIDINE 20MG/2ML IV (CANCER CTR) IV SCH; -FLU TRIvalent (5 YOA+) 2016-17 (CANCER CTR) 0.5 ML IM ONE; +IOHEXOL 350 MG/ML 100 ML (OMNIPAQUE 350) VIAL IV ONE; -MAGNESIUM SULFATE IV ONE; -NORMAL SALINE IV SCH; +NS 100 ML (IVPB) BAG IV ONE; -NS IV 1000 ML (CANCER CTR) 1,000 ML ONE; -NS IV 500 ML (CANCER CENTER) 500 ML IV SCH; -PACLITAXEL SEMI SYNTHETIC IV SCH; -PALONOSETRON HCL 0.25 MG, DEXAMETHASONE PF INJ (CANCER C 10 MG in NS (IVPB) CANCER CENT... IV PRN; -POTASSIUM CHL IV ONE; -[UNRECOGNIZED DRUG - OTHER] IV ONE; -[UNRECOGNIZED DRUG - OTHER] IV SCH; -diphenhydrAMINE 25 MG TAB (BENADRYL) CANCER CENTER PO ONE; -diphenhydrAMINE 25 MG TAB (BENADRYL) CANCER CENTER PO SCH; -diphenhydrAMINE 25 MG TAB (BENADRYL) PO SCH
--- NOTE | 2016-10-10 12:00 | Diagnostic Imaging Report ---
PROCEDURE: CT chest and abdomen with contrast. TECHNIQUE: Multiple contiguous axial images were obtained through the chest and abdomen after the administration of intravenous contrast. INDICATION: Lung cancer. COMPARISON: Exam compared with study 07/10/2016. CHEST: Postoperative distortion of the residual left lower lobe posterior medially improved from the prior. Pulmonary nodule on the left lateral to the takeoff of the left upper lobe pulmonary artery measuring 6 mm is unchanged. No new pulmonary nodule. No evidence for pneumonia. Left of the trachea and at the level of the calvin, there is subaortic adenopathy measuring 1 cm maximal unchanged if not slightly decreased from the prior. No suspicious soft tissue in the pulmonary nikky. There is tiny amount of left-sided pleural fluid. Postoperative changes to the chest wall noted with no acute soft tissue or osseous chest wall pathology. No adverse development in the thorax. ABDOMEN: A vague area of subtle hypodensity in the right hepatic lobe posterior laterally and inferiorly is only seen on the dynamic images and appreciated when reviewed in narrow liver windows. This is referenced in image 54 of 96 where there is questionable hypodense lesion of 1.5 cm. This is a borderline finding and may very likely reflect incidental heterogeneity in terms of fatty infiltration as well as a perfusion heterogeneity. Given the change and the history, followup suggested however no other potential liver metastases and no biliary abnormality. The bilateral adrenal glands, the spleen and the pancreas and the unobstructed kidneys appeared normal. There is no abdominal, pelvic, mesenteric or retroperitoneal adenopathy. Left lower quadrant nonobstructing hernia shows progressive herniation of unobstructed bowel but no inflammatory changes. Fluidlike density subcutaneous nodule in the right flank is an unchanged finding. No acute or suspicious osseous pathology and there is no abdominal, mesenteric or retroperitoneal adenopathy. IMPRESSION: CHEST: Micronodule in the left lung stable. Some shotty nodes in the AP window and subaortic mediastinum stable or decreased. Resolving post therapeutic distortion in the left lower lung posterior medially. Near resolution of small effusion. No adverse development. ABDOMEN: Borderline subtle regional area of transient hypodensity in the right hepatic lobe more likely than not incidental, however metastasis could not be confidently excluded. Consider short-term followup. No lymphadenopathy. The abdominal CT showed no other potential metastasis with increased nonobstructing herniation of bowel lateral to the rectus sheath below the umbilicus. Dictated by: Dictated on workstation # [id number]
== END ==
LOC: RAD 10:27
PROVIDERS: ATTEND Nurse Practitioner Adult Health
DX: C34.32 Malignant neoplasm of lower lobe, left bronchus or lung (principal); C18.7 Malignant neoplasm of sigmoid colon
CPT/HCPCS: 71260; 74160

== ENCOUNTER 2016-12-03 05:33 | Outpatient (CLI) | payer MEDICARE, OTHER ==
[~2016-12-03] VITALS: Ht 180.3 cm; Wt 87.2 kg
== END 2016-12-03 11:56 ==
LOC: PREOP 05:33
PROVIDERS: ATTEND Surgery Pediatric Surgery
DX: Z01.818 Encounter for other preprocedural examination (principal); Z12.11 Encounter for screening for malignant neoplasm of colon; Z85.038 Personal history of other malignant neoplasm of large intestine

== ENCOUNTER 2016-12-05 08:00 | Day surgery (SDC) | payer MEDICARE, OTHER ==
[~2016-12-05] VITALS: Ht 180.3 cm; Wt 87.2 kg
[2016-12-05] MEDS ORDERED: LIDOCAINE JELLY 2% (XYLOCAINE) 5 ML TUBE MM PRN (08:15)
[2016-12-05] MEDS ORDERED: NS IV 500 ML 500 ML IV PRN (08:15)
[2016-12-05] MEDS ORDERED: FLUMAZENIL (ROMAZICON) 0.1 MG/ML 5 ML VIAL INJ PRN (08:15)
[2016-12-05] MEDS ORDERED: NALOXONE 0.4 MG/ML 1 ML (NARCAN) VIAL IVP PRN (08:15)
[2016-12-05 08:31] VITALS: BP 116/73
--- NOTE | 2016-12-05 09:07 | Progress Note-Pre Operative ---
Pre-Operative Progress Note H&P Reviewed The H&P was reviewed, patient examined and no changes noted. Date H&P Reviewed: December 05, 2016 Time H&P Reviewed: 09:00 Pre-Operative Diagnosis: hx colon cancer NADEEM OROZCO MD December 05, 2016 9:07 am
--- NOTE | 2016-12-05 09:07 | Conscious Sedation/ASA ---
Conscious Sedation Pre-Proced Time Reviewed: 09:00 ASA Class: 3 Airway Mallampati Classification: (eyak appropriate class) I. II. III, IV Lungs Heart ASA score ASA 1: a normal healthy patient ASA 2: a patient with a mild systemic disease (mid diabetes, controlled hypertension, obesity ASA 3: a patient with a severe systemic disease that limits activity (angina , COPD, prior Myocardial infarction) ASA 4: a patient with an incapacitating disease that is a constant threat to life (CHF, renal failure) ASA 5: a moribund patient not expected to survive 24 hrs. (ruptured aneurysm) ASA 6: a declared brain patient whose organs are being harvested. For emergent operations, add the letter E after the classification Grade 2 Sedation Plan: Analgesia, Amnesia, Plan communicated to team members, Discussed options with patient/fam, Discussed risks with patient/fam Note The patient is an appropriate candidate to undergo the planned procedure, sedation, and anesthesia. The patient immediately re-assessed prior to indication. NADEEM OROZCO MD December 05, 2016 9:07 am
[2016-12-05] MEDS ORDERED: ONDANSETRON 4 MG/2 ML (SDV) Z0FRAN IV PRN (09:15)
[2016-12-05] MEDS ORDERED: ACETAMINOPHEN 325 MG TABLET/CAPLET (TYLENOL) PO PRN (09:15)
[2016-12-05] MEDS ORDERED: morphine INJ 10 MG/ML 1ML (SYR OR VIAL) IV PRN (09:15)
[2016-12-05] MEDS ORDERED: HYDROcodone/APAP 5 MG/325 MG (LORTAB) TAB PO PRN (09:15)
[2016-12-05] MEDS ORDERED: fentaNYL INJECTION 100 MCG/2 ML AMP ONE ×2 (10:06→10:22)
[2016-12-05] MEDS ORDERED: MIDAZOLAM 2 MG/2 ML (VERSED) VIAL ONE ×5 (10:06→10:23)
[2016-12-05] MEDS ORDERED: LIDOCAINE JELLY 2% (XYLOCAINE) 5 ML TUBE ONE (10:09)
[2016-12-05] MEDS: MIDAZOLAM 2 MG/2 ML (VERSED) VIAL IVP PRN ×5 (10:12→10:40)
[2016-12-05] MEDS: fentaNYL INJECTION 100 MCG/2 ML AMP IVP PRN ×2 (10:13→10:20)
[2016-12-05 11:45] VITALS: BP 130/75
--- NOTE | 2016-12-05 11:50 | Progress Note-Post Operative ---
Post-Operative Progess Note Surgeon (s)/Rug Hooker (s) Surgeon NADEEM OROZCO MD Rug Hooker: none Pre-Operative Diagnosis hx colon cancer Post-Operative Diagnosis near obstructing recurrent colon cancer Procedure & Operative Findings Date of Procedure 12/05/16 Procedure Performed/Findings sigmoidoscopy with bx and submucosal injection. Anesthesia Type CS Estimated Blood Loss Estimated blood loss (mL): minimal Specimens/Packing Specimens Removed sigmoid-rectal mass NADEEM OROZCO MD December 05, 2016 11:50
--- NOTE | 2016-12-05 12:01 | Discharge Inst-Surgical ---
D/C Lap Instructions-PAM Follow Up Appt in 2 weeks Activity as tolerated High Fiber Diet 25g or more per day Avoid Alcohol, Caffeine, Spicy Everetts and Acid foods. Drink 64 fluid oz or more of fluids per day. Symptoms to Report: Fever over 101 degree F, Nausea/Vomiting If any problems/questions: Contact your physician or go to Emergency Room NADEEM OROZCO MD December 05, 2016 12:01
[2016-12-05 12:15] VITALS: BP 143/88
[2016-12-05 12:17] LABS: BASOPHILS % (AUTO) 1 % (0-10); EOSINOPHILS # (AUTO) 0.1 10^3/uL (0.0-0.3); EOSINOPHILS % (AUTO) 1 % (0-10); LYMPHOCYTES # (AUTO) 1.5 X 10^3 (1.0-4.0); LYMPHOCYTES % (AUTO) 23 % (12-44); MEAN CORPUSCULAR HEMOGLOBIN 29 PG (25-34); MEAN CORPUSCULAR HGB CONC 34 G/DL (32-36); MEAN CORPUSCULAR VOLUME 87 FL (80-99); MEAN PLATELET VOLUME 12.2 FL (7.4-10.4); MONOCYTES # (AUTO) 0.5 X 10^3 (0.0-1.0); MONOCYTES % (AUTO) 8 % (0-12); NEUTROPHILS # (AUTO) 4.3 X 10^3 (1.8-7.8); NEUTROPHILS % (AUTO) 67 % (42-75); PLATELET COUNT 150 10^3/uL (130-400); RED BLOOD COUNT 4.71 10^6/uL (4.35-5.85); RED CELL DISTRIBUTION WIDTH 15.3 % (10.0-14.5); WHITE BLOOD COUNT 6.3 10^3/uL (4.3-11.0)
[2016-12-05 12:36] LABS: ALANINE AMINOTRANSFERASE 15 U/L (0-55); ANION GAP 9 MMOL/L (5-14); ASPARTATE AMINO TRANSFERASE 18 U/L (5-34); BILIRUBIN,TOTAL 0.8 MG/DL (0.1-1.0); BLOOD UREA NITROGEN 10 MG/DL (7-18); BUN/CREATININE RATIO 10; CALCIUM 8.7 MG/DL (8.5-10.1); CARBON DIOXIDE 26 MMOL/L (21-32); CHLORIDE 105 MMOL/L (98-107); CREATININE SERUM 1.02 MG/DL (0.60-1.30); GFR ESTIMATED > 60; GLUCOSE 97 MG/DL (70-105); POTASSIUM 4.4 MMOL/L (3.6-5.0); SODIUM 140 MMOL/L (135-145); TOTAL PROTEIN 6.8 G/DL (6.4-8.2)
[2016-12-05 13:11] VITALS: BP 143/88
--- NOTE | 2016-12-05 21:26 | OPERATIVE REPORT ---
DATE OF SERVICE: PREOPERATIVE DIAGNOSIS: History of colon adenocarcinoma. POSTOPERATIVE DIAGNOSIS: Recurrent near-obstructing tumor near the previous anastomosis. PROCEDURES: Sigmoidoscopy with biopsy and submucosal injection. SURGEON: Nadeem Orozco MD ANESTHESIA: Conscious sedation. ESTIMATED BLOOD LOSS: Minimal. FINDINGS: A near-obstructing colonic lesion at approximately 15 cm from the anal verge. Multiple attempts were made to pass the colonoscope, as well as the gastroscope; however, unsuccessful. There was air coming through, as well as bubbles, consistent with no complete obstruction. DISPOSITION: The patient tolerated the procedure well. INDICATIONS: The patient is a 71-year-old male who originally presented with flank pain in 08/2015. A CT scan did not show any kidney stones; however, a nodule in the left lower lung was identified. He did have a smoking history of greater than 40 pack years. He was found to have an adenocarcinoma and underwent a wedge resection in [place]. A PET scan was then performed which did show a lesion of the sigmoid colon. He then underwent a colonoscopy and found to have a large sessile polyp of the sigmoid colon which was consistent with an adenocarcinoma. On 12/29/2015, he underwent a laparoscopic low anterior colorectal resection. The pathology showed adenocarcinoma free of margins with all 16 lymph nodes identified negative for metastasis. He states that he is otherwise doing well and that his strength is improving; however, he does have mild crampy abdominal pain with some foods, which he avoids. He does not report any red blood per rectum nor any dark tarry stools. DESCRIPTION OF PROCEDURE: The patient was brought to the endoscopy suite, laid in the left lateral decubitus position. After adequate IV pain and sedative medications and conscious sedation anesthesia, a digital rectal examination was performed. Chronic stage II external and internal hemorrhoids were identified, which were not actively edematous nor inflamed and no bleeding. Normal sphincter tone was felt, and there were no palpable masses. Prostate gland was palpable and appeared normal. The endoscope was then intubated into the anus and rectum and gently insufflated. The endoscope was then advanced to the [facility] into the rectum with no polyps or any neoplasms identified. At the sigmoid rectal junction, a near-obstructing tumor was identified, most likely consistent with a previous area of anastomosis, which was approximately 15 cm from the anal verge. Multiple attempts were made to get through this tumor using the colonoscope, as well as the gastroscope; however, unsuccessful. There were air bubbles, as well as liquid, coming through, which most likely did not represent a full obstruction. Multiple biopsies were taken of the tumor using forceps and electrocautery with visualization of good hemostasis. We then proceeded with submucosal injection circumferentially around the tumor using black ink. The endoscope was then slowly withdrawn while suctioning of residual air. The patient tolerated the procedure well. We will get a CT scan, as well as laboratory work, and also proceed with an urgent consultation with oncology for potential modalities. Due to the near-obstructing nature of this lesion, he will at least need some form of diversion versus a left coloproctectomy and end colostomy. Due to his history of previous lung adenocarcinoma as well, he will need further metastatic workup. Job ID: [id number] DocumentID: [id number] Dictated Date: 12/05/2016 11:34:03 Supervisor Electronics Assembly Date: 12/05/2016 21:25:25 Dictated By: NADEEM OROZCO MD
== END 2016-12-05 13:15 | disposition home or self-care (01) ==
LOC: ENDO 08:00
PROVIDERS: ATTEND Surgery Pediatric Surgery
DX: D37.4 Neoplasm of uncertain behavior of colon (principal); K64.1 Second degree hemorrhoids; Z85.038 Personal history of other malignant neoplasm of large intestine; C34.92 Malignant neoplasm of unspecified part of left bronchus or lung; Z98.0 Intestinal bypass and anastomosis status; Z87.891 Personal history of nicotine dependence
CPT/HCPCS: 36415; 80053; 82378; 85025; 88305

== ENCOUNTER → 2016-12-06 | Outpatient (CLI) | payer MEDICARE, OTHER ==
[~2016-12-06] MED LIST changes: +ACET-2267 PO; +IOHEXOL 350 MG/ML 100 ML (OMNIPAQUE 350) VIAL IV ONE; +NS 100 ML (IVPB) BAG IV ONE
--- NOTE | 2016-12-06 12:34 | Diagnostic Imaging Report ---
PROCEDURE: CT chest, abdomen, and pelvis with and without contrast. TECHNIQUE: Precontrast images were obtained of the chest, abdomen, and pelvis. Multiple contiguous axial images were obtained through the chest, abdomen, and pelvis after administration of intravenous contrast. INDICATION: Recurrent colon cancer. CONTRAST: 100 mL of Omnipaque 350 administered intravenously. COMPARISON: 10/10/2016. FINDINGS: CT chest: Again seen are small mediastinal lymph nodes in the subaortic station without significant change. No significantly enlarged axillary lymph nodes. Minimally prominent 1 cm right hilar lymph node is seen, of uncertain significance. The thoracic aorta is normal in caliber. The heart size is normal. No pericardial or pleural effusion. Post thoracotomy changes are seen on the left side with scarring in the medial aspect of the left lower lobe. Mild emphysematous changes are seen mostly in the upper lobes. No significant consolidation, mass, or new nodule seen. Indeterminate 6 mm left suprahilar nodule, axial image 22 is again seen without change. Post thoracotomy osseous changes are seen in the left rib cage with mild deformity. No destructive mass is seen. CT abdomen and pelvis: Again seen is a nonspecific hypodense lesion in the right hepatic lobe measuring 1.7 cm compared to 2 cm on the previous exam. There is another subtle hypodense lesion measuring 1.1 cm seen more posteriorly within the right hepatic lobe. This is very subtle finding and is possibly present on the previous exam although more apparent currently without definitive change in size. The spleen, the pancreas, and adrenals appear unremarkable. The kidneys have symmetric enhancement and contrast excretion. There is no hydronephrosis. The prostate is enlarged measuring 5.7 cm in transverse dimension. Urinary bladder wall thickening could be related to cystitis or from chronic obstructive changes. There is a left-sided spigelian hernia containing a nonobstructed small bowel loop. The abdominal aorta is normal in caliber. No para-aortic significantly enlarged lymph nodes are seen. There is no bowel obstruction. No significant free fluid or fluid collection in the abdomen or pelvis is seen. There is a tiny fat-containing hernia seen. The osseous structures demonstrate no destructive mass. Degenerative changes are seen. There is a stable subcutaneous fluid attenuation area, possibly a seroma along the posterior inferior aspect of the right chest wall in the back. IMPRESSION: CT chest: 1. Stable indeterminate 6 mm left suprahilar nodule. 2. Stable borderline 1 cm right hilar lymph node. CT abdomen and pelvis: 1. Stable to minimally smaller right hepatic lobe hypodense lesions, indeterminate in etiology. The slight decrease in size could be related to chemotherapy. Correlate clinically. 2. Prominent prostate enlargement. Associated urinary bladder wall thickening could be related to cystitis or from chronic obstructive changes. Dictated by: Dictated on workstation # [id number]
== END ==
LOC: RAD 08:00
PROVIDERS: ATTEND Surgery Pediatric Surgery
DX: C18.9 Malignant neoplasm of colon, unspecified (principal); N40.0 Benign prostatic hyperplasia without lower urinary tract symptoms; R59.0 Localized enlarged lymph nodes
CPT/HCPCS: 71270; 74178

== ENCOUNTER 2016-12-07 12:54 | Outpatient (CLI) | payer MEDICARE, OTHER ==
[~2016-12-07] VITALS: Ht 180.3 cm; Wt 86.2 kg
[~2016-12-07 12:54] MED LIST changes: -ACET-2267 PO; -IOHEXOL 350 MG/ML 100 ML (OMNIPAQUE 350) VIAL IV ONE; -NS 100 ML (IVPB) BAG IV ONE
[2016-12-07 13:00] VITALS: BP 119/69
== END 2016-12-07 13:10 | disposition home or self-care (01) ==
LOC: PREOP 12:54
PROVIDERS: ATTEND Surgery Pediatric Surgery
DX: Z01.818 Encounter for other preprocedural examination (principal); Z11.2 Encounter for screening for other bacterial diseases; K63.9 Disease of intestine, unspecified
CPT/HCPCS: 87081

== ENCOUNTER 2016-12-11 06:27 | Inpatient (IN) | payer MEDICARE, OTHER ==
--- NOTE | 2016-12-08 15:54 | HISTORY AND PHYSICAL ---
DATE OF SERVICE: PRIMARY CARE PHYSICIAN: Mami Ray MD HISTORY OF PRESENT ILLNESS: The patient is a 71-year-old male known to us. He originally presented with flank pain in 08/2015. A CT scan did not show any stones; however, a nodule of the left lower lung was identified. He also did have a smoking history of greater than 40 pack years. The lesion was found to be an adenocarcinoma, and he underwent a wedge resection by thoracic surgery in [place]. A PET scan was then performed which did show a lesion of the sigmoid colon. He then underwent a colonoscopy and was found to have a large sessile polyp of the sigmoid colon, which was biopsied and consistent with an adenocarcinoma. On 12/29/2015, he underwent a laparoscopic low anterior colorectal resection. He did well after surgery and was able to tolerate a diet and have bowel movements. He was seen in the office for a followup colonoscopy. He reported that he was doing well; however, said that some foods did cause a crampy abdominal pain. He did not report any nausea nor vomiting. He did state that, throughout the process of surgeries, he did lose a significant amount of weight; however, had slowly regained weight. The pathology had showed adenocarcinoma of the colon free of margins with all 16 lymph nodes identified and negative for metastasis. On 12/05/2016, he underwent a sigmoidoscopy. A near-obstructing lesion was identified near the area of previous anastomosis. Multiple attempts were made to get through this obstructing lesion with the colonoscope; however, unsuccessful. We then tried a gastroscope and again was unsuccessful. This was not completely occluded due to visualization of liquid and air bubbles going through the area of the lesion. He also has an incisional hernia of the left lower quadrant with small bowel on CT scan. Hernia is reducible. PAST MEDICAL HISTORY: Chronic sinusitis, left lung cancer, sigmoid colon cancer. PAST SURGICAL HISTORY: Lipoma excision of back, left lung wedge resection in 10/2015, laparoscopic low anterior colorectal resection in 12/2015. ALLERGIES: PENICILLIN. MEDICATIONS: None. SOCIAL HISTORY: Previous smoker, 40 pack years, quit 10/2015. Previous heavy alcohol, quit in 05/2011. FAMILY HISTORY: Mother, pancreatic cancer. VITAL SIGNS: Stable, current weight 194.5 pounds, 5 feet 11 inches. REVIEW OF SYSTEMS: This is a well-nourished male currently in no acute distress. He is not experiencing any shortness of breath, no difficulty in breathing. No chest pain, palpitations, diaphoresis. No nausea, vomiting with crampy abdominal pain after some types of foods. He does report that he does have bowel movements which tend to be loose. He does not report any red blood per rectum nor any dark tarry stools. No fever, chills. No recent inadvertent weight loss. PHYSICAL EXAMINATION: CHEST: Clear. HEART: Regular. EXTREMITIES: No lower extremity edema, negative Homans sign. HEENT: No scleral icterus. NECK: No cervical lymphadenopathy. ABDOMEN: Soft, nontender, nondistended. ASSESSMENT AND PLAN: A 71-year-old male with a recurrent lesion near the previous colorectal anastomosis. This appears to be near obstructing; however, not completely obstructing. Due to his history of sigmoid colon cancer, as well as lung cancer, and due to the near-obstructing nature of the lesion, we will proceed with a laparoscopic left proctocolectomy and anastomosis if feasible. We will also proceed with primary incisional hernia repair. He was also referred back to oncology and they agree with the treatment plan. Job ID: [id number] DocumentID: [id number] Dictated Date: 12/08/2016 14:36:08 Cementer Hand Date: 12/08/2016 15:53:59 Dictated By: NADEEM OROZCO MD [facility]
[2016-12-11] VITALS (10 sets, daily range): BP systolic 115–134; BP diastolic 57–75
[~2016-12-11] VITALS: Ht 180.3 cm; Wt 83.3 kg
[2016-12-11] MEDS ORDERED: ceFAZolin 1,000 MG (ANCEF) VIAL ONE (06:38)
[2016-12-11] MEDS ORDERED: NS (IVPB) 50 ML ONE (06:38)
[2016-12-11] MEDS: LACTATED RINGERS 1,000 ML IV PRN ×4 (06:40→15:21)
[2016-12-11] MEDS ORDERED: ceFAZolin 1 GM/NS 50 ML IVPB IV ONE ×2 (07:15)
--- NOTE | 2016-12-11 07:43 | Progress Note-Pre Operative ---
Pre-Operative Progress Note H&P Reviewed The H&P was reviewed, patient examined and no changes noted. Date H&P Reviewed: December 11, 2016 Time H&P Reviewed: 07:40 Pre-Operative Diagnosis: Near obstructing colonic mass JOSELUIS SYLVESTER ELECTRIFIER OPERATOR December 11, 2016 7:43 am
[2016-12-11] MEDS ORDERED: metroNIDAZOLE 500MG/100ML IVPB 100 ML IV ONE (07:45)
[2016-12-11] MEDS ORDERED: BUP/EPI 0.5% 1:200,000 (SENSORCAINE) 30 ML VIAL ONE (09:45)
[2016-12-11] MEDS ORDERED: proPOfol 200 MG/20 ML (DIPRIVAN) VIAL IV ONE (09:50)
[2016-12-11] MEDS ORDERED: LIDOCAINE JELLY 2% (XYLOCAINE) 5 ML TUBE ONE (09:50)
[2016-12-11] MEDS ORDERED: LACTATED RINGERS 1,000 ML IV ONE ×3 (09:50→13:23)
[2016-12-11] MEDS ORDERED: LIDOCAINE PF 2% 5 ML (XYLOCAINE) VIAL ONE (09:50)
[2016-12-11] MEDS ORDERED: ONDANSETRON 4 MG/2 ML (SDV) Z0FRAN ONE ×2 (09:50→14:30)
[2016-12-11] MEDS ORDERED: fentaNYL INJECTION 250 MCG/5 ML AMP ONE (09:50)
[2016-12-11] MEDS ORDERED: MIDAZOLAM 2 MG/2 ML (VERSED) VIAL ONE (09:50)
[2016-12-11] MEDS ORDERED: ROCURONIUM 50 MG/5 ML (ZEMURON) VIAL IV ONE (09:50)
[2016-12-11] MEDS ORDERED: HEParin (CENTRAL IV FLUSH) 500 UNIT/5 ML SYR ONE (10:26)
[2016-12-11] MEDS ORDERED: GLYCOPYRROLATE 0.2 MG/ML (ROBINUL) 2 ML VIAL ONE ×2 (11:25→13:23)
[2016-12-11] MEDS ORDERED: SEVOFLURANE (ULTANE) 15 ML INHAL SOLN ONE ×10 (13:23→14:29)
[2016-12-11] MEDS ORDERED: morphine INJ 10 MG/ML 1ML (SYR OR VIAL) ONE (14:30)
[2016-12-11] MEDS: morphine INJ 10 MG/ML 1ML (SYR OR VIAL) IVP PRN ×2 (14:54→15:02)
[2016-12-11] MEDS ORDERED: MEPERIDINE (DEMEROL) INJ 50 MG/ML IVP PRN (15:00)
[2016-12-11] MEDS ORDERED: ONDANSETRON 4 MG/2 ML (SDV) Z0FRAN IVP PRN (15:00)
[2016-12-11] MEDS ORDERED: HYDROmorphone (DILAUDID) 2 MG/ML VIAL IVP PRN (15:00)
--- NOTE | 2016-12-11 15:05 | Progress Note-Post Operative ---
Post-Operative Progess Note Surgeon (s)/Fur Finisher Seamstress (s) Surgeon NADEEM OROZCO MD Fur Finisher Seamstress: sanjuanita carroll APRN Pre-Operative Diagnosis Near obstructing colonic mass, incisional hernia. Post-Operative Diagnosis same, chronic inflammatory tissue, no recurrent colonic tumor, no lymphadenopathy, no carcinomatosis. Procedure & Operative Findings Date of Procedure 12/11/16 Procedure Performed/Findings laparoscopic low anterior colorectal resection, takedown splenic flexure, incisional hernia repair, placement left subclavian central venous catheter. Anesthesia Type GET Estimated Blood Loss Estimated blood loss (mL): minimal Specimens/Packing Specimens Removed colorectal anastomosis NADEEM OROZCO MD December 11, 2016 15:05
[2016-12-11] MEDS ORDERED: diphenhydrAMINE 50 MG/ML INJ (BENADRYL) IVP PRN (15:15)
[2016-12-11] MEDS ORDERED: fentaNYL INJECTION 5,000 MCG in NS (IVPB) 0 ML IV SCH (15:15)
[2016-12-11] MEDS ORDERED: oxyCODONE 20 MG/1 ML ORAL CONC (RoxiCODONE) CHARGE PER 1 ML PO PRN (15:15)
--- NOTE | 2016-12-11 16:08 | Diagnostic Imaging Report ---
Semi-upright AP view of the chest. INDICATION: Central line placement. FINDINGS: There is a left subclavian line which appears to be looped in the left brachiocephalic vein. There is an NG tube noted in the distal esophagus. It needs to be advanced by at least 11 cm from to be well within the stomach. There is a small left pleural effusion. No pneumothorax. The heart size is slightly enlarged. Minimal atelectasis in the left lung base is seen. IMPRESSION: 1. Left subclavian line is seen looped in the left brachiocephalic vein. 2. The NG tube is in the distal esophagus. 3. Small left pleural effusion and mild left basilar opacity likely atelectasis. The findings were called to Dr. Castro at time of dictation. Dictated by: Dictated on workstation # [id number]
--- NOTE | 2016-12-11 16:39 | Diagnostic Imaging Report ---
INDICATION: Evaluation of central line and enteric tube. COMPARISON: Earlier the same day. FINDINGS: A single frontal radiographic view of the chest was obtained and again demonstrates an indwelling enteric tube with the tip likely in the distal esophagus near the gastroesophageal junction. The left subclavian central venous catheter has since been partially withdrawn. The tip now terminates likely within the left innominate vein. There is some buckling of the catheter over the left clavicle. The cardiac silhouette and pulmonary vasculature are stable. Aeration of the lungs is unchanged. There is probable left basilar effusion. No pneumothorax is seen on either side. IMPRESSION: 1. Lines and tubes as above. 2. Probable left effusion. Dictated by: Dictated on workstation # [id number]
[2016-12-11] MEDS ORDERED: NS IV 1000 ML 1,000 ML IV SCH (17:07)
[2016-12-11] MEDS: 1/2 NS W/KCL 20 MEQ/L 1,000 ML IV SCH (17:14)
[2016-12-11] MEDS: meTOprolol 5 MG/5 ML (LOPRESSOR) VIAL IVP SCH ×2 (17:14→21:04)
[2016-12-11] MEDS ORDERED: ONDANSETRON 4 MG/2 ML (SDV) Z0FRAN IV PRN (17:15)
[2016-12-11] MEDS ORDERED: fentaNYL PCA 300 MCG/30 ML VIAL IV PRN (17:15)
[2016-12-11] MEDS ORDERED: NALOXONE 0.4 MG/ML 1 ML (NARCAN) VIAL IV PRN (17:15)
[2016-12-11] MEDS: ceFAZolin 2 GM/50 ML NS 50 ML IV SCH (18:42)
[2016-12-11] MEDS: metroNIDAZOLE 500MG/100ML IVPB 100 ML IV SCH (18:42)
[2016-12-11] MEDS ORDERED: METOCLOPRAMIDE INJ 10 MG/2 ML (REGLAN) ONE (21:17)
[2016-12-11] MEDS: RT-ALBUTEROL SULF 2.5 MG/3 ML PRE-MIX VIAL INH SCH ×2 (21:24→22:04)
[2016-12-11] MEDS: ENOXAPARIN 30 MG/0.3 ML (LOVENOX) SYR SC SCH (21:24)
[2016-12-12] VITALS (12 sets, daily range): BP systolic 112–147; BP diastolic 57–70
[2016-12-12] MEDS: 1/2 NS W/KCL 20 MEQ/L 1,000 ML IV SCH ×5 (00:07→20:56)
[2016-12-12] MEDS: meTOprolol 5 MG/5 ML (LOPRESSOR) VIAL IVP SCH ×5 (00:07→16:04)
[2016-12-12] MEDS: RT-ALBUTEROL SULF 2.5 MG/3 ML PRE-MIX VIAL INH SCH ×6 (01:17→22:10)
--- NOTE | 2016-12-12 01:21 | OPERATIVE REPORT ---
DATE OF SERVICE: 12/11/2016 ATTENDING PRIMARY CARE PHYSICIAN: Dr. Mami Ray. 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 Incisional hernia. 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 Incisional hernia. Chronic inflammatory changes. There did not appear to be any recurrent tumors nor any carcinomatosis or lymphadenopathy. PROCEDURES: Laparoscopic low anterior colorectal resection and anastomosis, repair of ventral abdominal incisional hernia, placement of left subclavian central venous catheter and takedown of splenic flexure. SURGEON: Dr. Nadeem Orozco CREDIT CONTROL ASSISTANT: Aime Lebron APRN. ANESTHESIA: General endotracheal. ESTIMATED BLOOD LOSS: Minimal. FINDINGS: Chronic inflammatory phlegmon near the area of previous anastomosis, walled off by small bowel and mesentery. No recurrent tumors identified, no lymphadenopathy as well as no identifiable liver lesions. There was also no carcinomatosis. DISPOSITION: The patient tolerated the procedure well. INDICATIONS: The patient is a 71-year-old male known to us. He initially presented with flank pain, 08/2015. A CT scan did not show any stones; however, a nodule of the left lower lung was identified. He did have a smoking history of greater than 40 pack years. The lesion was found to be an adenocarcinoma. Then he underwent a wedge resection by thoracic surgery in [place]. A PET scan was then performed which did show a lesion of the sigmoid colon. He then underwent a colonoscopy and found to have a large sessile polyp in the sigmoid colon, which was biopsied and consistent with adenocarcinoma. On 12/29/2015, he underwent a laparoscopic low anterior colorectal resection. He did well after surgery and was able to tolerate a diet and had bowel movements. He was seen in the office for followup colonoscopy. He had reported he was doing well, however, did have some crampy abdominal pain. He did not report any nausea, no vomiting. He states that throughout the process of the surgery, he did lose a significant amount of weight, however, has slowly regained the weight back. The pathology report had showed adenocarcinoma of the colon, free of margins of all 16 lymph nodes identified and negative for metastasis. On 12/05/2016, he underwent a sigmoidoscopy. A near-obstructing lesion was identified near the previous anastomosis. Multiple attempts to get to the near-obstructing lesion were done with the colonoscope, however, unsuccessful. We then tried a gastroscope and again were unsuccessful. The lesion did not completely occlude due to visualization of liquid and air bubbles going to the area of the lesion. He also had a symptomatic left lower abdominal quadrant incisional hernia which was identified by physical examination as well as by CT scan. DESCRIPTION OF PROCEDURE: The patient was brought to the operating room, laid supine on the table. After adequate IV pain and sedating medications and general endotracheal intubation, the abdomen was prepped and draped in a standard surgical fashion. Marcaine 0.5% with epinephrine was then used to anesthetize the overlying skin in the left upper abdominal quadrant. A small transverse skin incision made using a 15 blade. An 0 silk suture was applied to the medial aspect of the incision for retraction and a Veress needle inserted with a low opening pressure of 0 mmHg. The abdomen was then insufflated to 15 mmHg pressure. The Veress needle removed and a 5 mm Xcel trocar placed followed by a 5-mm 45-degree angle laparoscope. Four-quadrant abdominal exploration was then performed. There were chronic inflammatory phlegmon identified of the colorectal area of anastomosis. There did not appear to be any carcinomatosis, recurrent tumor or any lymphadenopathy. This appeared to be more consistent with an ischemic stricture which had walled off. Under direct visualization, we then proceeded to place a supraumbilical 10-mm port as well as a suprapubic 10-mm port after the skin and peritoneum were anesthetized using 0.5% Marcaine, and a transverse skin incision was made using a 15 blade. The patient was then placed in Trendelenburg position as well as plane right side up, left side down. Before the procedure, a left subclavian central venous catheter was placed. The neck and chest were prepped and draped in standard surgical fashion. The left subclavian vein was then cannulated with drawing of venous blood. The guidewire was then inserted, and the cannulated needle removed. A skin incision was made using an 11 blade. A tract was then created using a venous dilator. A triple-lumen central venous catheter was then placed over the guidewire using the Seldinger technique. The guidewire was then removed. Venous blood was drawn out and saline pushed in without any resistance. The catheter was then sutured to the skin using interrupted 3-0 silk sutures. The catheter was then cleaned and covered with sterile gauze followed by Op-Site. We then proceeded with dissection of the area of previous anastomosis. Again, chronic inflammatory tissue was identified, which was walled off by peritoneal lining, appendices epiploicae as well as small bowel. The previous black ink marking from the sigmoidoscopy was also identified. We then proceeded with gentle dissection of the small bowel away from the area of anastomosis. The area of anastomosis was chronically fissured in appearance. There was no appearance of any recurrent tumor. We then proceeded to completely dissect the descending colon and rectum using a Sonicision with visualization of good hemostasis. The rectum was then stapled and transected using an endoscopic CLINTON stapler which was J-shaped to get closer to the rectum. The rectum was then stapled and transected. We then proceeded up the proximal descending colon and took down the splenic flexure using a Sonicision with visualization of good hemostasis. There was adequate length for the descending colon to be anastomosed to the rectum without any tension. Along the incisional hernia which was significant in size, approximately 4 to 5 cm across, a skin incision was made. Through this hernial defect, the resected segments of colon were removed. A pursestring suture was then applied to the end of the descending colon and the distal end cut with a 10 blade. The dilators were used and a 29-mm dilator was placed without any resistance. We decided to use a 29-mm stapler. The anvil was then placed at the end of the colon and the pursestring tied. This portion as well as the colon was then reduced back into the abdomen and towel clamps applied into the skin opening. I then went to the perineum with the patient placed in modified lithotomy position. The 29 dilator was placed with no resistance. The EEA 29-mm stapler was then placed under direct visualization and the stem opened. The stem was connected to the anvil and connected to medium tension and staple height. The stapler was then fired and then removed under direct visualization. Proximal and distal anastomotic rings were identified and both intact. Tisseel fibrin glue was then placed around the area of anastomosis, and a 19-Bolivian GINNY drain was placed near the area of anastomosis and brought out through the 5-mm port site. The 10-mm port site fascia and peritoneum were then closed under direct visualization using a Venkata-Kirill device and 0 Vicryl sutures. We then proceeded with repair of the incisional hernia. An area along the fascia was cleared off using electrocautery. The defect was approximately 5 cm in size. We then proceeded to primarily close the incisional hernia without any tension using a 0 PDS running suture. Good hemostasis was observed. All skin incisions were then closed using skin savi. The wounds were then cleaned and covered with sterile gauze. The patient tolerated the procedure well. We will admit him to ICU and we will start IV pain medication with a EVALUATOR pump as well as DVT prophylaxis with calf SCDs, early ambulation as well as Lovenox injection. We will also continue with bowel rest with NG tube decompression, and once he shows hard evidence of bowel function, remove the NG tube and start a clear liquid diet and advance from there. Job ID: [id number] DocumentID: [id number] Dictated Date: 12/11/2016 14:48:35 Spike Machine Feeder Date: 12/12/2016 00:39:19 Dictated By: NADEEM OROZCO MD
[2016-12-12] MEDS: metroNIDAZOLE 500MG/100ML IVPB 100 ML IV SCH ×2 (02:00→09:05)
[2016-12-12] MEDS: ceFAZolin 2 GM/50 ML NS 50 ML IV SCH ×2 (02:00→09:05)
[2016-12-12 04:21] LABS: MEAN PLATELET VOLUME 12.8 FL (7.4-10.4); RED BLOOD COUNT 4.06 10^6/uL (4.35-5.85); RED CELL DISTRIBUTION WIDTH 15.4 % (10.0-14.5); WHITE BLOOD COUNT 9.9 10^3/uL (4.3-11.0)
[2016-12-12 04:46] LABS: ANION GAP 9 MMOL/L (5-14); BLOOD UREA NITROGEN 9 MG/DL (7-18); BUN/CREATININE RATIO 10; CALCIUM 7.8 MG/DL (8.5-10.1); CARBON DIOXIDE 24 MMOL/L (21-32); CHLORIDE 103 MMOL/L (98-107); CREATININE SERUM 0.93 MG/DL (0.60-1.30); GFR ESTIMATED > 60; GLUCOSE 108 MG/DL (70-105); POTASSIUM 4.3 MMOL/L (3.6-5.0); SODIUM 136 MMOL/L (135-145)
[2016-12-12 06:41] LABS: MAGNESIUM 1.9 MG/DL (1.8-2.4); PHOSPHORUS 3.3 MG/DL (2.3-4.7)
--- NOTE | 2016-12-12 08:01 | Consultation-Hospitalist ---
HPI History of Present Illness: HPI/Chief Complaint CC: Medical management following colon resection HPI: This is a 71yoWM clinic patient of Dr Ray at [facility] [place] that presents to ICU 6 after an uncomplicated partial colon resection. He is currently without severe pain but uncomfortable with NGT. I review his labs and vitals and PMH. I will monitor for post op medical issues while hospitalized. Source: patient Exam Limitations: no limitations Date Seen 12/12/16 Attending Physician Sundar Castro MD PCP Mami Ray MD Referring Physician Date of Admission December 11, 2016 at 06:27 Home Medications & Allergies Home Medications Reviewed patient Home Medication Reconciliation Form Allergies Allergies Coded Allergies Penicillins (Verified Allergy, Unknown, PT HAS RECEIVED ROCEPHIN & ANCEF IN THE PAST W/O ISSUE, 12/11/16) latex (Verified Allergy, Unknown, HIVES, 12/03/16) Past [id number]-[id number]-Mhzfyk Hx Patient Social History Alcohol Use: Rarely Uses Recreational Drug Use: No Smoking Status: Former Smoker Former smoker/When Quit: Sep 20, 2015 Type Used: Cigarettes Physical Abuse Screen: No Sexual Abuse: No Recent Foreign Travel: No Contact w/other who traveled: No Recent Hopitalizations: No Recent Infectious Disease Expo: No Immunizations Up To Date Tetanus Booster (TDap): More than 5yrs Date of Pneumonia Vaccine: Apr 23, 2016 Seasonal Allergies Seasonal Allergies: No Surgeries HX Surgeries: Yes (Sebaceous Cyst removed from back, lesion from neck, COLON RESECTION) Surgeries: Abdominal, Bowel Surgery, Lobectomy Respiratory Hx Respiratory Disorders: Yes (partial lobectomy in october 2015) Respiratory Disorders: COPD Cardiovascular Hx Cardiovascular Disorders: No Cardiac Disorders: Atrial Fibrillation Neurological Hx Neurological Disorders: No Reproductive System Hx Reproductive Disorders: No Sexually Transmitted Disease: No HIV/AIDS: No Genitourinary Hx Genitourinary Disorders: Yes Genitourinary Disorders: Kidney Stones Gastrointestinal Hx Gastrointestinal Disorders: Yes (colon ca) Musculoskeletal Hx Musculoskeletal Disorders: No Endocrine Hx Endocrine Disorders: No HEENT HX ENT Disorders: Yes (READING GLASSES) Loss of Vision: Bilateral Hearing Impairment: Denies Cancer Hx Cancer: Yes Cancer: Lung, Colon Psychosocial Hx Psychiatric Problems: No Integumentary HX Skin/Integumentary Disorder: No Blood Transfusions Hx Blood Disorders: No Adverse Reaction to a Blood Tr: No Family Medical History Family Hx: Cardiovascular disease 19 MOTHER Colon cancer 19 MOTHER (pancreatic cancer) Kidney disease G8 BROTHER Review of Systems Constitutional: see HPI EENTM: no symptoms reported Respiratory: no symptoms reported Cardiovascular: no symptoms reported Gastrointestinal: abdominal pain (LLQ) Genitourinary: no symptoms reported Musculoskeletal: back pain Skin: no symptoms reported Psychiatric/Neurological: No Symptoms Reported All Other Systems Reviewed Negative Unless Noted: Yes Physical Exam Physical Exam Vital Signs Vital Sign - Last 12Hours 12/11/16 12/11/16 06:53 15:40 Temp 96.9 Pulse 58 Resp 16 B/P (MAP) 128/75 Pulse Ox 99 O2 Flow Rate 2.00 Capillary Refill : General Appearance: No Apparent Distress, WD/WN, Chronically ill Eyes: Bilateral Eye Normal Inspection, Bilateral Eye PERRL HEENT: PERRL/EOMI, Normal ENT Inspection, Pharynx Normal, Other (NGT in place) Neck: Full Range of Motion, Normal Inspection, Non Tender, Supple, Carotid Bruit Respiratory: Chest Non Tender, Lungs Clear, Normal Breath Sounds, No Accessory Muscle Use, No Respiratory Distress Cardiovascular: Regular Rate, Rhythm, No Edema, No Gallop, No JVD, No Murmur, Normal Peripheral Pulses Gastrointestinal: No Organomegaly, No Pulsatile Mass, Abnormal Bowel Sounds, Distended, Tenderness Back: Normal Inspection, No CVA Tenderness, No Vertebral Tenderness Extremity: Normal Capillary Refill, Normal Inspection, Normal Range of Motion, Non Tender, No Calf Tenderness, No Pedal Edema Neurologic/Psychiatric: Alert, Oriented x3, No Motor/Sensory Deficits, Normal Mood/Affect Skin: Normal Color, Warm/Dry Lymphatic: No Adenopathy Results Results/Procedures Lab Laboratory Tests 12/12/16 04:10 Assessment/Plan Admission Diagnosis Assessment: s/p partial colon resection due to obstructive colon mass in known h/o colon cancer h/o lung cancer s/p resection h/o smoking quit 1 yr ago COPD Assessment and Plan Plan: Monitor BP and labs Pain control IS Higher risk for post op pneumonia due to COPD and lung cancer hx Will follow with you Clinical Quality Measures DVT/VTE Risk/Contraindication: Risk Factor Score Per Nursin RFS Level Per Nursing on Admit: 2=Moderate RAMIRO LEYVA DO December 12, 2016 08:01
[2016-12-12] MEDS ORDERED: ACET-2267 PO (08:41)
--- NOTE | 2016-12-12 08:58 | Diagnostic Imaging Report ---
EXAMINATION: Portable upright radiograph of the chest. INDICATION: Shortness of breath. FINDINGS: The NG tube now is in the stomach. The proximal hole in the tube is at the GE junction. There is a left subclavian central line with the tip in the proximal left brachiocephalic vein. The heart size is enlarged. There is a small left effusion and left basilar atelectasis or infiltrate, slightly increased from the previous study of 12/11/2016. The right lung is clear. No effusion. The mediastinum and nikky appear unremarkable. IMPRESSION: 1. Small left effusion with adjacent opacity, favored to be atelectasis. 2. The left subclavian line tip is in the proximal left brachiocephalic vein. 3. The NG tube is in the proximal stomach with the proximal hole at the GE junction. Dictated by: Dictated on workstation # [id number]
[2016-12-12] MEDS ORDERED: SENNA W/DOCUSATE (SENOKOT S) TABLET PO SCH (09:00)
[2016-12-12] MEDS: PANTOPRAZOLE 40 MG/10 ML (PROTONIX) VIAL IV SCH (09:05)
[2016-12-12] MEDS: ENOXAPARIN 30 MG/0.3 ML (LOVENOX) SYR SC SCH ×2 (09:06→20:56)
--- NOTE | 2016-12-12 13:42 | Anesthesia-General Post-Op ---
General Patient Condition Mental Status/LOC: Same as Preop Cardiovascular: Satisfactory Nausea/Vomiting: Absent Respiratory: Satisfactory Pain: Controlled Complications: Absent Post Op Complications Complications None Follow Up Care/Instructions Patient Instructions None needed. Anesthesia/Patient Condition Patient Condition Patient is doing well, no complaints, stable vital signs, no apparent adverse anesthesia problems. No complications reported per nursing. THUY CARROLL CRNA December 12, 2016 13:42
--- NOTE | 2016-12-12 13:54 | Progress Note (SOAP) ---
Subjective Subjective/Events-last exam doing well. ambulating well and pain controlled. no bowel function yet. VSS Objective Exam Vital Signs Date Time Temp Pulse Resp B/P (MAP) Pulse Ox O2 Delivery O2 Flow Rate FiO2 12/12/16 12:00 97.3 58 26 133/62 97 12/12/16 12:00 98.7 12/12/16 11:13 97 12/12/16 08:55 12/12/16 07:03 18 12/12/16 07:00 97.8 12/12/16 07:00 60 12/12/16 06:58 95 12/12/16 06:13 49 17 116/61 95 12/12/16 05:28 49 22 113/57 96 12/12/16 04:00 0.00 12/12/16 04:00 98.6 51 22 118/58 95 12/12/16 03:00 53 27 120/61 95 12/12/16 02:00 52 13 115/57 95 12/12/16 01:17 95 12/12/16 01:00 50 13 112/58 95 12/12/16 00:58 51 12/12/16 00:00 0.00 12/12/16 00:00 98.2 12/12/16 00:00 53 19 116/60 94 12/11/16 23:00 50 15 115/60 93 12/11/16 22:04 94 12/11/16 22:00 51 21 116/57 98 12/11/16 21:27 99 1.50 12/11/16 21:00 97.8 43 17 123/63 98 12/11/16 20:37 43 12/11/16 20:00 0.00 12/11/16 20:00 45 22 120/63 99 12/11/16 19:00 45 21 119/66 100 12/11/16 17:45 46 23 134/61 100 12/11/16 16:50 47 18 129/72 100 12/11/16 15:50 50 26 123/63 100 12/11/16 15:40 2.00 12/11/16 14:50 134/68 I & O 12/12/16 07:00 Intake Total 5450 ml Output Total 1620 ml Balance 3830 ml Capillary Refill : General Appearance: No Apparent Distress HEENT: PERRL/EOMI Neck: Full Range of Motion Respiratory: Chest Non Tender, Lungs Clear, Normal Breath Sounds Cardiovascular: Regular Rate, Rhythm Gastrointestinal: soft, tenderness, other (wounds clean/dry) Extremity: Normal Capillary Refill Neurologic/Psychiatric: Alert, Oriented x3 Skin: Normal Color Lymphatic: No Adenopathy Results Lab Laboratory Tests 12/12/16 04:10: White Blood Count 9.9, Red Blood Count 4.06L, Hemoglobin 11.7L, Hematocrit 36L, Mean Corpuscular Volume 88, Mean Corpuscular Hemoglobin 29, Mean Corpuscular Hemoglobin Concent 33, Red Cell Distribution Width 15.4H, Platelet Count 114L, Mean Platelet Volume 12.8H, Sodium Level 136, Potassium Level 4.3, Chloride Level 103, Carbon Dioxide Level 24, Anion Gap 9, Blood Urea Nitrogen 9, Creatinine 0.93, Estimat Glomerular Filtration Rate > 60, BUN/Creatinine Ratio 10, Glucose Level 108H, Calcium Level 7.8L, Phosphorus Level 3.3, Magnesium Level 1.9 Assessment/Plan Assessment/Plan Assess & Plan/Chief Complaint s/p lap re-LAR likely secondary to stricture and incisional hernia repair. doing well, continue ambulation. await bowel fxn and remove NGT. transfer to floor. Clinical Quality Measures DVT/VTE Risk/Contraindication: Risk Factor Score Per Nursin RFS Level Per Nursing on Admit: 2=Moderate NADEEM OROZCO MD December 12, 2016 1:54 pm
[2016-12-12] MEDS ORDERED: ONDANSETRON 4 MG/2 ML (SDV) Z0FRAN IVP PRN (15:15)
[2016-12-12] MEDS ORDERED: METOCLOPRAMIDE INJ 10 MG/2 ML (REGLAN) IVP PRN (15:15)
[2016-12-13] MEDS: RT-ALBUTEROL SULF 2.5 MG/3 ML PRE-MIX VIAL INH SCH ×6 (02:12→21:50)
[2016-12-13 03:25] VITALS: BP 141/72
[2016-12-13] MEDS: 1/2 NS W/KCL 20 MEQ/L 1,000 ML IV SCH ×3 (05:00→21:17)
[2016-12-13] MEDS ORDERED: POTASSIUM CL 10MEQ/50ML IVPB 50 ML IV SCH (06:00)
[2016-12-13] MEDS ORDERED: MAGNESIUM 1 GM/100 ML IVPB 100 ML IV SCH (06:00)
[2016-12-13] MEDS ORDERED: KCL 20 MEQ TAB (K-DUR) PO SCH (06:00)
[2016-12-13 06:13] LABS: MEAN PLATELET VOLUME 12.7 FL (7.4-10.4); RED BLOOD COUNT 3.95 10^6/uL (4.35-5.85); RED CELL DISTRIBUTION WIDTH 16.2 % (10.0-14.5)
[2016-12-13 06:24] LABS: ANION GAP 8 MMOL/L (5-14); BLOOD UREA NITROGEN 5 MG/DL (7-18); BUN/CREATININE RATIO 6; CALCIUM 8.1 MG/DL (8.5-10.1); CARBON DIOXIDE 25 MMOL/L (21-32); CHLORIDE 104 MMOL/L (98-107); CREATININE SERUM 0.78 MG/DL (0.60-1.30); GFR ESTIMATED > 60; GLUCOSE 108 MG/DL (70-105); SODIUM 137 MMOL/L (135-145)
[2016-12-13 08:00] VITALS: BP 143/73
[2016-12-13] MEDS: PANTOPRAZOLE 40 MG/10 ML (PROTONIX) VIAL IV SCH (08:38)
[2016-12-13] MEDS: ENOXAPARIN 30 MG/0.3 ML (LOVENOX) SYR SC SCH ×2 (08:38→21:17)
--- NOTE | 2016-12-13 10:28 | Progress Note-Hospitalist ---
Progress Note HPI/CC on Admission CC: Medical management following colon resection HPI: This is a 71yoWM clinic patient of Dr Ray at [facility] [place] that presents to ICU 6 after an uncomplicated partial colon resection. He is currently without severe pain but uncomfortable with NGT. I review his labs and vitals and PMH. I will monitor for post op medical issues while hospitalized. Progress Notes/Assess & Plan Date Seen 12/13/16 Diagonsis/Assessment & Plan Chart Review: No fever Vitals stable Hgb 11.5 Platelets 102k CMP normal Patient Interview: Pt states that he has not yet gotten up, but he will soon Labs were discussed with the pt Pt states that he has been using IS Physical exam stable. Lungs sound perfect Pt states that he would like to go home tomorrow. Pt was informed that he will not be able to DC until bowels are moving. No fever, vital signs stable, pleasant, improved, stable, chronically ill, pale Regular rate and rhythm, clear to auscultation bilaterally Minimal bowel sounds noted No edema normal range of motion Laboratory Tests 12/13/16 05:45 Assessment: s/p partial colon resection due to obstructive colon mass in known h/o colon cancer POD # 2 h/o lung cancer s/p resection h/o smoking quit 1 yr ago COPD Plan: Monitor BP and labs Pain control IS Higher risk for post op pneumonia due to COPD and lung cancer hx Will follow with you PT/OT RAMIRO LEYVA DO Dec 13, 2016 10:28
[2016-12-13 11:52] VITALS: BP 153/70
--- NOTE | 2016-12-13 14:10 | Physical Therapy Evaluation ---
PT Evaluation-General Medical Diagnosis Admission Date December 11, 2016 at 06:27 Medical Diagnosis: colon mass Onset Date: December 11, 2016 Therapy Diagnosis Therapy Diagnosis: debility Height/Weight Height (Feet): 5 Height (Inches): 11.00 Weight (Pounds): 194 Weight (Ounces): 9.0 Precautions Precautions/Isolations: Fall Prevention, Standard Precautions Referral Physician: Bri Reason for Referral: Evaluation/Treatment Medical History Pertinent Medical History: Atrial Fib, COPD, Smoking Additional Medical History heavy alcohol use; colon resection 2016 secondary to metastatic lung cancer Current History recurrent colon mass Reviewed History: Yes Social History Home: Single Level Current Living Status: Spouse Prior/Core FIM Prior Level of Function Functional [place] Measure 0=Not Assessed/NA 4=Minimal Assistance 1=Total Assistance 5=Supervision or Setup 2=Maximal Assistance 6=Modified [place] 3=Moderate Assistance 7=Complete [place] Bed Mobility: 7 Transfers (B,C,W/C) (FIM): 7 Gait: 7 PT Evaluation-Current Subjective Patient denies pain and agrees to PT. Pain Numeric Pain Scale: 0-No Pain Location: No Pain Reported Objective Patient Orientation: Normal For Age Problem Solving: Good Attachments: NG Tube, IV ROM/Strength ROM Lower Extremities bilateral LE WFL Strenght Lower Extremities right knee flexion/extension 5/5; hip flexion 5/5; ankle dorsi/plantarflexion 5/ 5 left knee flexion/extension 5/5; hip flexion 5/5; ankle dorsi/plantarflexion 5/5 Integumentary/Posture Integumentary refer to nursing notes Bowel Incontinence: No Bladder Incontinence: No Posture WNL Neuromuscular (Tone, Coordination, Reflexes) grossly intact Sensory Vision: Functional Hearing: Functional Sensation Right Lower Extremit: Intact Sensation Left Lower Extremity: Intact Transfers Functional [place] Measure 0=Not Assessed/NA 4=Minimal Assistance 1=Total Assistance 5=Supervision or Setup 2=Maximal Assistance 6=Modified [place] 3=Moderate Assistance 7=Complete [place] Transfers (B, C, W/C) (FIM): 7 Scootin Rollin Supine to/from Sit: 7 Sit to/from Stand: 7 Gait Mode of Locomotion: Walk Anticipated Mode of Locomotion: Walk Gait (FIM): 6 Distance (FIM): 3=150 ft Distance: 500' Gait Level of Assist: 6 Gait Assistive Device: FWW Comments/Gait Description safe and functional with FWW Balance Sitting Static: Normal Sitting Dynamic: Normal Standing Static: Normal Standing Dynamic: Normal Assessment/Needs 71 y.o. active male, will be seen short term by skilled PT to address functional mobility to improve current LOF and to safely return to home with spouse at independent OF. Rehab Potential: Good PT Usp Goals Studio Hand Goals PT Studio Hand Goals Time Frame: Dec 20, 2016 Transfers (B,C,W/C) (FIM): 7 Gait (FIM): 7 Gait distance (FIM): 3=150 ft Gait Level of Assist: 7 Gait Assistive Device: None PT Plan Problem List Problem List: Activity Tolerance Treatment/Plan Treatment Plan: Continue Plan of Care Treatment Plan: Education, Functional Activity Joe, Functional Strength, Gait , Safety, Therapeutic Exercise, Transfers Treatment Duration: Dec 20, 2016 # of days/week 5 Visits Per Week: 5 Pt/Family Agrees w/Plan: Yes Time/GCodes Time In: 1331 Time Out: 1351 Total Billed Treatment Time: 20 Total Billed Treatment 1 visit EVLow 20 min BAL OLIVAS PT Dec 13, 2016 14:10
[2016-12-13 15:30] VITALS: BP 163/82
--- NOTE | 2016-12-13 16:17 | Progress Note (SOAP) ---
Subjective Subjective/Events-last exam doing well. pain controlled. decreasing NGT and GINNY output. passed small amount of flatus. ambulating well. Objective Exam Vital Signs Date Time Temp Pulse Resp B/P (MAP) Pulse Ox O2 Delivery O2 Flow Rate FiO2 12/13/16 14:15 97 12/13/16 11:52 97.5 75 18 153/70 96 12/13/16 10:55 96 12/13/16 08:00 97.5 90 18 143/73 97 12/13/16 06:30 99 12/13/16 05:47 20 12/13/16 03:25 98.1 73 21 141/72 96 12/13/16 02:13 96 12/12/16 23:40 98.4 68 24 147/70 97 12/12/16 22:11 98 12/12/16 19:39 97.1 60 12 126/59 96 12/12/16 18:29 18 12/12/16 18:26 95 I & O 12/13/16 07:00 Intake Total 2040 ml Output Total 1940 ml Balance 100 ml Capillary Refill : General Appearance: No Apparent Distress HEENT: PERRL/EOMI Neck: Full Range of Motion Respiratory: Chest Non Tender, Lungs Clear, Normal Breath Sounds Cardiovascular: Regular Rate, Rhythm Gastrointestinal: soft, tenderness, other (wounds clean/dry, minimal SS GINNY output) Extremity: Normal Capillary Refill Neurologic/Psychiatric: Alert, Oriented x3 Skin: Normal Color Lymphatic: No Adenopathy Results Lab Laboratory Tests 12/13/16 05:45: White Blood Count 7.0, Red Blood Count 3.95L, Hemoglobin 11.5L, Hematocrit 35L, Mean Corpuscular Volume 88, Mean Corpuscular Hemoglobin 29, Mean Corpuscular Hemoglobin Concent 33, Red Cell Distribution Width 16.2H, Platelet Count 102L, Mean Platelet Volume 12.7H, Sodium Level 137, Potassium Level 4.0, Chloride Level 104, Carbon Dioxide Level 25, Anion Gap 8, Blood Urea Nitrogen 5L, Creatinine 0.78, Estimat Glomerular Filtration Rate > 60, BUN/Creatinine Ratio 6 , Glucose Level 108H, Calcium Level 8.1L Assessment/Plan Assessment/Plan Assess & Plan/Chief Complaint s/p lap re-LAR likely secondary to stricture and incisional hernia repair. doing well, continue ambulation. await bowel fxn and remove NGT. good bowel sounds. when more flatus will remove NGT and start clears. path negative for malignancy. Clinical Quality Measures DVT/VTE Risk/Contraindication: Risk Factor Score Per Nursin RFS Level Per Nursing on Admit: 2=Moderate NADEEM OROZCO MD Dec 13, 2016 4:17 pm
[2016-12-13 19:05] VITALS: BP 187/83
[2016-12-14 00:55] VITALS: BP 187/83
[2016-12-14] MEDS: RT-ALBUTEROL SULF 2.5 MG/3 ML PRE-MIX VIAL INH SCH ×6 (02:06→22:03)
[2016-12-14 04:10] VITALS: BP 152/86
[2016-12-14] MEDS: 1/2 NS W/KCL 20 MEQ/L 1,000 ML IV SCH ×3 (05:18→21:54)
[2016-12-14 06:52] LABS: BASOPHILS % (AUTO) 0 % (0-10); EOSINOPHILS # (AUTO) 0.1 10^3/uL (0.0-0.3); EOSINOPHILS % (AUTO) 2 % (0-10); LYMPHOCYTES # (AUTO) 1.1 X 10^3 (1.0-4.0); LYMPHOCYTES % (AUTO) 16 % (12-44); MEAN CORPUSCULAR HEMOGLOBIN 29 PG (25-34); MEAN CORPUSCULAR HGB CONC 33 G/DL (32-36); MEAN CORPUSCULAR VOLUME 88 FL (80-99); MEAN PLATELET VOLUME 13.8 FL (7.4-10.4); MONOCYTES # (AUTO) 0.8 X 10^3 (0.0-1.0); MONOCYTES % (AUTO) 12 % (0-12); NEUTROPHILS # (AUTO) 4.9 X 10^3 (1.8-7.8); NEUTROPHILS % (AUTO) 70 % (42-75); PLATELET COUNT 107 10^3/uL (130-400); RED BLOOD COUNT 3.95 10^6/uL (4.35-5.85); RED CELL DISTRIBUTION WIDTH 15.7 % (10.0-14.5); WHITE BLOOD COUNT 6.9 10^3/uL (4.3-11.0)
[2016-12-14 07:00] LABS: ALANINE AMINOTRANSFERASE 8 U/L (0-55); ALBUMIN 3.2 G/DL (3.2-4.5); ANION GAP 10 MMOL/L (5-14); ASPARTATE AMINO TRANSFERASE 14 U/L (5-34); BILIRUBIN,TOTAL 0.8 MG/DL (0.1-1.0); BLOOD UREA NITROGEN 5 MG/DL (7-18); BUN/CREATININE RATIO 7; CALCIUM 8.4 MG/DL (8.5-10.1); CARBON DIOXIDE 22 MMOL/L (21-32); CHLORIDE 103 MMOL/L (98-107); CREATININE SERUM 0.74 MG/DL (0.60-1.30); GFR ESTIMATED > 60; GLUCOSE 81 MG/DL (70-105); POTASSIUM 4.3 MMOL/L (3.6-5.0); SODIUM 135 MMOL/L (135-145)
[2016-12-14 07:54] VITALS: BP 166/80
[2016-12-14] MEDS: ENOXAPARIN 30 MG/0.3 ML (LOVENOX) SYR SC SCH ×2 (08:29→20:38)
[2016-12-14] MEDS: PANTOPRAZOLE 40 MG/10 ML (PROTONIX) VIAL IV SCH (08:29)
--- NOTE | 2016-12-14 11:03 | Progress Note-Hospitalist ---
Progress Note HPI/CC on Admission CC: Medical management following colon resection HPI: This is a 71yoWM clinic patient of Dr Ray at [facility] [place] that presents to ICU 6 after an uncomplicated partial colon resection. He is currently without severe pain but uncomfortable with NGT. I review his labs and vitals and PMH. I will monitor for post op medical issues while hospitalized. 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 Bowel sounds, not passing gas He wants to lose the CO2 monitor, I am okay with this Still has NG tube Got up and walked around yesterday Patient Interview: I told him that I will DC the CO2 monitor He is still using IS Lungs had a little bit of wheezing He has been using breathing treatments, but gets some dizziness when he uses them so he is using half a treatment Pt is moving around pretty well He states that he has been walking as much as he can handle I want the pt to continue walking Chart Review: No fever Vitals stable Hgb 11.5 Platelets 102k CMP normal Patient Interview: Pt states that he has not yet gotten up, but he will soon Labs were discussed with the pt Pt states that he has been using IS Physical exam stable. Lungs sound perfect Pt states that he would like to go home tomorrow. Pt was informed that he will not be able to DC until bowels are moving. No fever, vital signs stable, pleasant, improved, stable, chronically ill, pale Regular rate and rhythm, clear to auscultation bilaterally except subtle wheeze that clears Minimal bowel sounds noted No edema normal range of motion Assessment: s/p partial colon resection due to obstructive colon mass in known h/o colon cancer POD # 3 post op ileus h/o lung cancer s/p resection h/o smoking quit 1 yr ago COPD Plan: Monitor BP and labs Pain control IS Higher risk for post op pneumonia due to COPD and lung cancer hx Will follow with you PT/OT RT - DC CO2 monitor Continue moving so we can pass gas and remove NG tube Scribed by Ana Amato under the direct supervision of Dr. Gregory. RAMIRO GREGORY DO Dec 14, 2016 11:03
--- NOTE | 2016-12-14 11:44 | Physical Therapy Daily Note ---
PT Daily Note-Current Subjective Patient is very agreeable to participate with PT. Pain Numeric Pain Scale: 0-No Pain Location: No Pain Reported Mental Status Patient Orientation: Normal For Age Attachments: NG Tube, IV Transfers Functional [place] Measure 0=Not Assessed/NA 4=Minimal Assistance 1=Total Assistance 5=Supervision or Setup 2=Maximal Assistance 6=Modified [place] 3=Moderate Assistance 7=Complete [place] Quality Coding Scale 6 Independent with activity with or without an assistive device 5 Patient requires set up or clean up by helper. Patient completes activity by themselves 4 Supervision or touching assist (CGA). [place] provide cues , steadying assist 3 The helper provides less than half the effort to complete the activity 2 The helper provides more than half the effort to complete the activity 1 Dependent. The helper does all the effort to complete an activity 7 Patient refused to complete or attempt activity 9 The patient did not perform the activity before the current illness or injury 88 Not attempted due to Medical conditions or safety concerns Transfers (B, C, W/C) (FIM): 6 Scootin Sit to/from Stand: 6 Gait Training Gait (FIM): 6 Distance (FIM): 3=150 ft Distance: 400' Gait Level of Assist: 6 Gait Assistive Device: FWW safe and functional Assessment Nursing staff instructed to detach IV and NGtube to all patient to ambulate PRN in hallway with FWW and family or self to improve current LOF and to improve bowel sounds and functional by increasing activity. RN is very agreeable. PT Gear Cutting Machine Set Up Operator Goals Gear Cutting Machine Set Up Operator Goals PT Gear Cutting Machine Set Up Operator Goals Time Frame: Dec 20, 2016 Transfers (B,C,W/C) (FIM): 7 Gait (FIM): 7 Gait distance (FIM): 3=150 ft Gait Level of Assist: 7 Gait Assistive Device: None PT Plan Treatment/Plan Treatment Plan: Continue Plan of Care Treatment Plan: Education, Functional Activity Joe, Functional Strength, Gait , Safety, Therapeutic Exercise, Transfers Treatment Duration: Dec 20, 2016 Visits Per Week: 5 Time/GCodes Time In: 1120 Time Out: 1130 Total Billed Treatment Time: 10 Total Billed Treatment 1 visit FA 10 min BAL OLIVAS PT Dec 14, 2016 11:44
[2016-12-14 12:00] VITALS: BP 147/82
--- NOTE | 2016-12-14 13:18 | Progress Note (SOAP) ---
Subjective Subjective/Events-last exam doing well. small amount of flatus today. pain controlled. ambulating well. Objective Exam Vital Signs Date Time Temp Pulse Resp B/P (MAP) Pulse Ox O2 Delivery O2 Flow Rate FiO2 12/14/16 12:00 97.4 80 20 147/82 96 12/14/16 10:09 96 12/14/16 07:54 96.0 66 22 166/80 96 0.00 0.00 12/14/16 06:19 97 12/14/16 05:34 20 12/14/16 04:10 97.3 72 19 152/86 96 2.00 2.00 12/14/16 02:06 97 12/14/16 00:55 99.0 77 18 187/83 98 0.00 0.00 12/13/16 21:50 96 12/13/16 19:05 98.9 83 17 187/83 98 12/13/16 18:06 96 12/13/16 18:00 20 12/13/16 15:30 97.8 67 24 163/82 99 12/13/16 14:15 97 I & O 12/14/16 06:59 Intake Total 3000 ml Output Total 2685 ml Balance 315 ml Capillary Refill : General Appearance: No Apparent Distress HEENT: PERRL/EOMI Neck: Full Range of Motion Respiratory: Chest Non Tender, Lungs Clear, Normal Breath Sounds Cardiovascular: Regular Rate, Rhythm Gastrointestinal: normal bowel sounds, soft Extremity: Normal Capillary Refill Neurologic/Psychiatric: Alert, Oriented x3 Skin: Normal Color Lymphatic: No Adenopathy Results Lab Laboratory Tests 12/14/16 05:40: White Blood Count 6.9, Red Blood Count 3.95L, Hemoglobin 11.5L, Hematocrit 35L, Mean Corpuscular Volume 88, Mean Corpuscular Hemoglobin 29, Mean Corpuscular Hemoglobin Concent 33, Red Cell Distribution Width 15.7H, Platelet Count 107L, Mean Platelet Volume 13.8H, Neutrophils (%) (Auto) 70, Lymphocytes (%) (Auto) 16 , Monocytes (%) (Auto) 12, Eosinophils (%) (Auto) 2, Basophils (%) (Auto) 0, Neutrophils # (Auto) 4.9, Lymphocytes # (Auto) 1.1, Monocytes # (Auto) 0.8, Eosinophils # (Auto) 0.1, Basophils # (Auto) 0.0, Sodium Level 135, Potassium Level 4.3, Chloride Level 103, Carbon Dioxide Level 22, Anion Gap 10, Blood Urea Nitrogen 5L, Creatinine 0.74, Estimat Glomerular Filtration Rate > 60, BUN/ Creatinine Ratio 7, Glucose Level 81, Calcium Level 8.4L, Total Bilirubin 0.8, Aspartate Amino Transf (AST/SGOT) 14, Alanine Aminotransferase (ALT/SGPT) 8, Alkaline Phosphatase 65, Total Protein 6.0L, Albumin 3.2 Assessment/Plan Assessment/Plan Assess & Plan/Chief Complaint s/p lap re-LAR likely secondary to stricture and incisional hernia repair. doing well, continue ambulation. good bowel sounds. will remove NGT and start clears later today. path negative for malignancy. Clinical Quality Measures DVT/VTE Risk/Contraindication: Risk Factor Score Per Nursin RFS Level Per Nursing on Admit: 2=Moderate NADEEM OROZCO MD Dec 14, 2016 1:18 pm
[2016-12-14 16:51] VITALS: BP 150/81
[2016-12-14 19:47] VITALS: BP 167/79
[2016-12-15] VITALS: BP 147/73
[2016-12-15] MEDS: RT-ALBUTEROL SULF 2.5 MG/3 ML PRE-MIX VIAL INH SCH ×5 (02:22→22:31)
[2016-12-15 04:00] VITALS: BP 152/76
[2016-12-15] MEDS: 1/2 NS W/KCL 20 MEQ/L 1,000 ML IV SCH (05:54)
[2016-12-15 06:00] LABS: BASOPHILS % (AUTO) 1 % (0-10); EOSINOPHILS # (AUTO) 0.1 10^3/uL (0.0-0.3); EOSINOPHILS % (AUTO) 1 % (0-10); LYMPHOCYTES # (AUTO) 0.9 X 10^3 (1.0-4.0); LYMPHOCYTES % (AUTO) 16 % (12-44); MEAN CORPUSCULAR HEMOGLOBIN 29 PG (25-34); MEAN CORPUSCULAR HGB CONC 33 G/DL (32-36); MEAN CORPUSCULAR VOLUME 88 FL (80-99); MEAN PLATELET VOLUME 12.6 FL (7.4-10.4); MONOCYTES # (AUTO) 0.6 X 10^3 (0.0-1.0); MONOCYTES % (AUTO) 11 % (0-12); NEUTROPHILS % (AUTO) 71 % (42-75); PLATELET COUNT 115 10^3/uL (130-400); RED BLOOD COUNT 3.92 10^6/uL (4.35-5.85); RED CELL DISTRIBUTION WIDTH 15.4 % (10.0-14.5); WHITE BLOOD COUNT 5.7 10^3/uL (4.3-11.0)
[2016-12-15 06:29] LABS: ALANINE AMINOTRANSFERASE 11 U/L (0-55); ALBUMIN 3.4 G/DL (3.2-4.5); ANION GAP 14 MMOL/L (5-14); ASPARTATE AMINO TRANSFERASE 17 U/L (5-34); BILIRUBIN,TOTAL 0.8 MG/DL (0.1-1.0); BLOOD UREA NITROGEN 8 MG/DL (7-18); BUN/CREATININE RATIO 10; CALCIUM 8.5 MG/DL (8.5-10.1); CARBON DIOXIDE 17 MMOL/L (21-32); CHLORIDE 104 MMOL/L (98-107); CREATININE SERUM 0.78 MG/DL (0.60-1.30); GFR ESTIMATED > 60; POTASSIUM 4.5 MMOL/L (3.6-5.0); SODIUM 135 MMOL/L (135-145); TOTAL PROTEIN 6.1 G/DL (6.4-8.2)
[2016-12-15 06:35] LABS: GLUCOSE 60 MG/DL (70-105)
[2016-12-15 08:28] VITALS: BP 156/57
[2016-12-15] MEDS: ENOXAPARIN 30 MG/0.3 ML (LOVENOX) SYR SC SCH ×2 (08:51→20:31)
[2016-12-15] MEDS: PANTOPRAZOLE 40 MG/10 ML (PROTONIX) VIAL IV SCH (08:51)
--- NOTE | 2016-12-15 09:51 | Progress Note (SOAP) ---
Subjective Date Seen by Provider: Dec 15, 2016 Time Seen by Provider: 09:35 Subjective/Events-last exam Patient was seen with Dr. Castro. Patient reports doing well. ambulating. No N/ V. minimal abdominal tenderness. no fever/chills. passing some gas but no BM yet. tolerating clear liquid diet. Review of Systems General: No Chills, No Night Sweats Gastrointestinal: No: Nausea, Vomiting Objective Exam Vital Signs Date Time Temp Pulse Resp B/P (MAP) Pulse Ox O2 Delivery O2 Flow Rate FiO2 12/15/16 08:28 98.8 88 18 156/57 98 12/15/16 06:32 95 12/15/16 06:00 20 12/15/16 04:00 98.5 74 18 152/76 98 12/15/16 02:23 93 12/15/16 00:00 98.3 88 18 147/73 96 12/14/16 22:03 95 12/14/16 19:47 97.1 95 20 167/79 97 12/14/16 18:33 93 12/14/16 18:27 20 12/14/16 16:51 97.1 70 20 150/81 96 12/14/16 14:02 97 12/14/16 12:00 97.4 80 20 147/82 96 12/14/16 10:09 96 I & O 12/15/16 07:00 Intake Total 950 ml Output Total 3930 ml Balance -2980 ml Capillary Refill : General Appearance: No Apparent Distress, WD/WN HEENT: PERRL/EOMI, Other (There is a white coating over patient's tongue.) Neck: Full Range of Motion, Normal Inspection, Non Tender, Supple Respiratory: Lungs Clear, Normal Breath Sounds, No Accessory Muscle Use, No Respiratory Distress Cardiovascular: Regular Rate, Rhythm Gastrointestinal: soft, tenderness, other (surgical drain in place with clear serous drainage. ) Extremity: Normal Capillary Refill, Normal Inspection, Normal Range of Motion, Non Tender, No Calf Tenderness Neurologic/Psychiatric: Alert, Oriented x3 Skin: Normal Color, Warm/Dry, Other (abdominal incisions C/D/I.) Results Lab Laboratory Tests 12/15/16 05:50: White Blood Count 5.7, Red Blood Count 3.92L, Hemoglobin 11.5L, Hematocrit 35L, Mean Corpuscular Volume 88, Mean Corpuscular Hemoglobin 29, Mean Corpuscular Hemoglobin Concent 33, Red Cell Distribution Width 15.4H, Platelet Count 115L, Mean Platelet Volume 12.6H, Neutrophils (%) (Auto) 71, Lymphocytes (%) (Auto) 16 , Monocytes (%) (Auto) 11, Eosinophils (%) (Auto) 1, Basophils (%) (Auto) 1, Neutrophils # (Auto) 4.0, Lymphocytes # (Auto) 0.9L, Monocytes # (Auto) 0.6, Eosinophils # (Auto) 0.1, Basophils # (Auto) 0.0, Sodium Level 135, Potassium Level 4.5, Chloride Level 104, Carbon Dioxide Level 17L, Anion Gap 14, Blood Urea Nitrogen 8, Creatinine 0.78, Estimat Glomerular Filtration Rate > 60, BUN/ Creatinine Ratio 10, Glucose Level 60*L, Calcium Level 8.5, Total Bilirubin 0.8 , Aspartate Amino Transf (AST/SGOT) 17, Alanine Aminotransferase (ALT/SGPT) 11, Alkaline Phosphatase 67, Total Protein 6.1L, Albumin 3.4 Assessment/Plan Assessment/Plan Assess & Plan/Chief Complaint s/p lap re-LAR likely secondary to stricture and incisional hernia repair. Labs and VSS. Continue ambulation and IS. Advance diet to DYS3 Will start diflucan for thrush. Will await more BM. path negative for malignancy. Clinical Quality Measures DVT/VTE Risk/Contraindication: Risk Factor Score Per Nursin RFS Level Per Nursing on Admit: 2=Moderate JOSELUIS SYLVESTER POWDER PRESS OPERATOR Dec 15, 2016 9:51 am
[2016-12-15] MEDS ORDERED: FLUCONAZOLE 200 MG/100 ML 100 ML IV ONE (10:00)
[2016-12-15] MEDS ORDERED: HYDR-3730 PO (10:20)
--- NOTE | 2016-12-15 10:21 | Discharge Inst-Surgical ---
D/C Lap Instructions-PAM New, Converted, or Re-Newed RX: RX on Chart Follow Up Appt in 2 weeks Activity as tolerated No driving for 24 hours No driving while on pain medications Incentive Spirometry use every 2 hours while awake Regular Diet(low residue) Symptoms to Report: Fever over 101 degree F, Nausea/Vomiting Infection Signs and Symptoms to report: Increased redness, Foul odor of wound, Increased drainage Bathing instructions: May shower Operative Area Clean/Dry; Keep incision clean/dry If any problems/questions: Contact your physician or go to Emergency Room NADEEM OROZCO MD Dec 15, 2016 10:20 am
--- NOTE | 2016-12-15 11:32 | Progress Note-Hospitalist ---
Subjective HPI/CC On Admission Date Seen by Provider: Dec 15, 2016 Time Seen by Provider: 10:20 CC: Medical management following colon resection HPI: This is a 71yoWM clinic patient of Dr Ray at [facility] [place] that presents to ICU 6 after an uncomplicated partial colon resection. He is currently without severe pain but uncomfortable with NGT. I review his labs and vitals and PMH. I will monitor for post op medical issues while hospitalized. Date Seen 12/15/16 Subjective/Events-last exam patient currently is without any specific complaints other than the liquid diet is not very palatable. he denies having any chest pain or shortness of breath. passed some flatus yesterday.he denies having any nausea vomiting. No bowel movement as of yet. Greatly relieved that the pathology is normal and shows no evidence of return malignancy Review of Systems Neurological: Weakness Objective Exam Vital Signs Vital Sign - Last 12Hours 12/11/16 12/11/16 06:53 15:40 Temp 96.9 Pulse 58 Resp 16 B/P (MAP) 128/75 Pulse Ox 99 O2 Flow Rate 2.00 Capillary Refill : General Appearance: No Apparent Distress, WD/WN Neck: Normal Inspection, Non Tender, Supple Respiratory: Lungs Clear, Normal Breath Sounds, No Accessory Muscle Use, No Respiratory Distress Cardiovascular: Regular Rate, Rhythm, No Gallop, No Murmur Gastrointestinal: Soft, Other (slightly high-pitched tinkling bowel sounds slight distention) Rectal: Deferred Back: Normal Inspection Extremity: Normal Inspection, Normal Range of Motion, Non Tender, No Calf Tenderness, No Pedal Edema Neurologic/Psychiatric: Alert, Oriented x3, No Motor/Sensory Deficits, Normal Mood/Affect Skin: Pallor Lymphatic: No Adenopathy Results/Procedures Lab Laboratory Tests 12/15/16 05:50 Assessment/Plan Assessment and Plan Assess & Plan/Chief Complaint Assessment: s/p partial colon resection due to obstructive colon mass in known h/o colon cancer POD # 4-no evidence of recurrence of malignancy post op ileus-unchanged h/o lung cancer s/p resection-no evidence of disease h/o smoking quit 1 yr ago COPD hypertension possibly related to volume overload Plan: Monitor BP patient advised Pain control IS Higher risk for post op pneumonia due to COPD and lung cancer hx Will follow with you PT/OT RT - DC CO2 monitor possible discharge in a.GLENN Ramos MD Dec 15, 2016 11:32
[2016-12-15 16:17] VITALS: BP 147/69
[2016-12-16] VITALS: BP 126/73
[2016-12-16] MEDS: RT-ALBUTEROL SULF 2.5 MG/3 ML PRE-MIX VIAL INH SCH ×3 (02:52→10:00)
[2016-12-16 07:45] VITALS: BP 130/75
[2016-12-16] MEDS: ENOXAPARIN 30 MG/0.3 ML (LOVENOX) SYR SC SCH (07:57)
[2016-12-16] MEDS: PANTOPRAZOLE 40 MG/10 ML (PROTONIX) VIAL IV SCH (07:57)
[2016-12-16] MEDS ORDERED: FLUCONAZOLE 100 MG/50 ML 50 ML IV SCH (09:00)
--- NOTE | 2016-12-16 09:30 | Progress Note (SOAP) ---
Subjective Date Seen by Provider: Dec 16, 2016 Time Seen by Provider: 09:20 Subjective/Events-last exam Patient seen with Dr. Castro. Patient reports doing well. Tolerating diet and ambulating. Having BMs, did report having dark red blood with 1st BM. No N/V. No fever/chills. Minimal abdominal tenderness. Thrush still noted on tongue. Review of Systems General: No Chills, No Night Sweats Gastrointestinal: No: Abdominal Pain, Nausea, Vomiting Objective Exam Vital Signs Date Time Temp Pulse Resp B/P (MAP) Pulse Ox O2 Delivery O2 Flow Rate FiO2 12/16/16 07:45 98.3 68 22 130/75 96 12/16/16 06:14 96 12/16/16 02:52 94 12/16/16 00:00 98.2 62 18 126/73 97 12/15/16 22:31 95 12/15/16 16:17 98.1 67 18 147/69 98 12/15/16 14:55 97 12/15/16 10:40 97 I & O 12/16/16 07:00 Intake Total 2670 ml Output Total 3260 ml Balance -590 ml Capillary Refill : General Appearance: No Apparent Distress, WD/WN HEENT: PERRL/EOMI Neck: Normal Inspection, Non Tender, Supple Respiratory: Lungs Clear, Normal Breath Sounds, No Accessory Muscle Use, No Respiratory Distress Cardiovascular: Regular Rate, Rhythm Gastrointestinal: normal bowel sounds, soft, tenderness Extremity: Normal Capillary Refill, Normal Inspection, Normal Range of Motion, Non Tender, No Calf Tenderness, No Pedal Edema Neurologic/Psychiatric: Alert, Oriented x3 Skin: Normal Color, Warm/Dry Assessment/Plan Assessment/Plan Assess & Plan/Chief Complaint s/p lap re-LAR likely secondary to stricture and incisional hernia repair. Labs and VSS. Having BMs D/C surgical drain. D/C home with diflucan and pain medication. Will have patient follow up in office on thursday 12/21. Clinical Quality Measures DVT/VTE Risk/Contraindication: Risk Factor Score Per Nursin RFS Level Per Nursing on Admit: 2=Moderate JOSELUIS SYLVESTER APRN Dec 16, 2016 9:30 am
[2016-12-16] MEDS ORDERED: FLUC100T PO (09:33)
--- NOTE | 2016-12-16 11:10 | Progress Note-Hospitalist ---
Subjective HPI/CC On Admission Date Seen by Provider: Dec 16, 2016 Time Seen by Provider: 11:00 CC: Medical management following colon resection HPI: This is [place] 71yoWM clinic [place] [facility] [place] 6 after an uncomplicated partial colon resection. He is currently without severe pain but uncomfortable with NGT. I review his labs and vitals and PMH. I will monitor for post op medical issues while hospitalized. Date Seen 12/16/16 Subjective/Events-last exam patient is getting ready to go home. He is having bowel movements without trouble. His tolerating a normal diet. He denies having chest pain or shortness of breath. Review of Systems Neurological: Weakness Objective Exam Vital Signs Vital Sign - Last 12Hours 12/11/16 12/11/16 06:53 15:40 Temp 96.9 Pulse 58 Resp 16 B/P (MAP) 128/75 Pulse Ox 99 O2 Flow Rate 2.00 Capillary Refill : General Appearance: No Apparent Distress, WD/WN HEENT: Normal ENT Inspection Neck: Supple Respiratory: Lungs Clear, No Accessory Muscle Use, No Respiratory Distress, Decreased Breath Sounds (left side) Cardiovascular: Regular Rate, Rhythm, No Gallop, No Murmur Gastrointestinal: Soft Rectal: Deferred Extremity: Non Tender, No Calf Tenderness Neurologic/Psychiatric: Alert, Oriented x3, No Motor/Sensory Deficits, Normal Mood/Affect Skin: Warm/Dry, Pallor Assessment/Plan Assessment and Plan Assess & Plan/Chief Complaint Assessment: s/p partial colon resection due to obstructive colon mass in known h/o colon cancer POD # 5-no evidence of recurrence of malignancy post op ileus-unchanged h/o lung cancer s/p resection-no evidence of disease h/o smoking quit 1 yr ago COPD hypertension possibly related to volume overload Plan: Monitor BP patient advised Pain control IS Higher risk for post op pneumonia due to COPD and lung cancer hx PT/OT RT - DC CO2 monitor discharge today Copy Copies To 1: PATRIZIA TORRES MD, KATHLEEN M MD Dec 16, 2016 11:10 am
== END 2016-12-16 13:15 | disposition home or self-care (01) | DRG 354 ==
LOC: 3RD 06:27 → SURG 06:28 → ICU 15:50 → 4TH 12-12 14:10
PROVIDERS: ADMIT Surgery Pediatric Surgery; ATTEND Surgery Pediatric Surgery
PROC: 0WQF0ZZ Repair Abdominal Wall, Open Approach (ICD-10-PCS; 2016-12-11)
PROC: 0DBE4ZX Excision of Large Intestine, Percutaneous Endoscopic Approach, Diagnostic (ICD-10-PCS; principal; 2016-12-11 10:12)
DX: K63.0 Abscess of intestine (principal); K55.1 Chronic vascular disorders of intestine; B37.0 Candidal stomatitis; K43.2 Incisional hernia without obstruction or gangrene; J44.9 Chronic obstructive pulmonary disease, unspecified; I48.91 Unspecified atrial fibrillation; Z85.038 Personal history of other malignant neoplasm of large intestine; Z85.118 Personal history of other malignant neoplasm of bronchus and lung; Z90.2 Acquired absence of lung [part of]; Z90.49 Acquired absence of other specified parts of digestive tract; Z87.891 Personal history of nicotine dependence
CPT/HCPCS: 36415; 71010; 80048; 80053; 83735; 84100; 85025; 85027; 86850; 86900; 86901; 88305; 94640; 94664; 94760

== ENCOUNTER 2017-01-10 12:46 | Outpatient (RCR) | payer MEDICARE, OTHER ==
[~2017-01-10 12:46] MED LIST changes: +ACET-2267 PO; +FLUC100T PO
[2017-01-10 12:59] LABS: BASOPHILS % (AUTO) 0 % (0-10); EOSINOPHILS # (AUTO) 0.1 10^3/uL (0.0-0.3); EOSINOPHILS % (AUTO) 1 % (0-10); LYMPHOCYTES # (AUTO) 1.7 X 10^3 (1.0-4.0); LYMPHOCYTES % (AUTO) 26 % (12-44); MEAN CORPUSCULAR HEMOGLOBIN 30 PG (25-34); MEAN CORPUSCULAR HGB CONC 34 G/DL (32-36); MEAN CORPUSCULAR VOLUME 88 FL (80-99); MEAN PLATELET VOLUME 11.5 FL (7.4-10.4); MONOCYTES # (AUTO) 0.6 X 10^3 (0.0-1.0); MONOCYTES % (AUTO) 9 % (0-12); NEUTROPHILS # (AUTO) 4.2 X 10^3 (1.8-7.8); NEUTROPHILS % (AUTO) 64 % (42-75); PLATELET COUNT 138 10^3/uL (130-400); RED BLOOD COUNT 4.58 10^6/uL (4.35-5.85); RED CELL DISTRIBUTION WIDTH 15.3 % (10.0-14.5); WHITE BLOOD COUNT 6.7 10^3/uL (4.3-11.0)
[2017-01-10 13:46] LABS: ALANINE AMINOTRANSFERASE 22 U/L (0-55); ALBUMIN 4.3 GM/DL (3.2-4.5); ANION GAP 11 MMOL/L (5-14); ASPARTATE AMINO TRANSFERASE 19 U/L (5-34); BILIRUBIN,TOTAL 0.6 MG/DL (0.1-1.0); BLOOD UREA NITROGEN 9 MG/DL (7-18); BUN/CREATININE RATIO 10; CARBON DIOXIDE 26 MMOL/L (21-32); CHLORIDE 104 MMOL/L (98-107); CREATININE SERUM 0.91 MG/DL (0.60-1.30); GFR ESTIMATED > 60; GLUCOSE 97 MG/DL (70-105); MAGNESIUM 2.1 MG/DL (1.8-2.4); POTASSIUM 3.8 MMOL/L (3.6-5.0); SODIUM 141 MMOL/L (135-145); TOTAL PROTEIN 7.4 GM/DL (6.4-8.2)
== END 2017-01-16 | disposition home or self-care (01) ==
LOC: ONC 12:46
PROVIDERS: ATTEND Internal Medicine Hematology & Oncology
DX: C34.32 Malignant neoplasm of lower lobe, left bronchus or lung (principal); C77.1 Secondary and unspecified malignant neoplasm of intrathoracic lymph nodes; Z87.891 Personal history of nicotine dependence
CPT/HCPCS: 36415; 80053; 82378; 83735; 85025; 99213

== ENCOUNTER → 2017-01-21 | Outpatient (CLI) | payer MEDICARE, OTHER ==
[~2017-01-21] MED LIST changes: +CATHETER FLUSH 10 ML SYR IV PRN
--- NOTE | 2017-01-21 16:13 | Diagnostic Imaging Report ---
Whole body bone scan. Technique: After the intravenous administration of 26.3 mCi of Technetium 99m MDP, whole body delayed phase bone scan images were obtained with lateral views of the head and neck and the chest regions. Indication: Lung cancer. COMPARISON: Comparison exam from 07/10/2016 is reviewed. Findings: There is normal distribution of the tracer in the osseous structures with superimposed mild activity around the shoulders and other joints compatible with degenerative changes. There is also urinary tract activity seen slightly more prominent in the left kidney. No areas of intense radiotracer uptake noted particularly within the central skeleton to suggest metastasis. IMPRESSION: No scintigraphic evidence of osseous metastasis. Dictated by: Dictated on workstation # [id number]
== END ==
LOC: CARD 10:37
PROVIDERS: ATTEND Internal Medicine Hematology & Oncology
DX: C18.7 Malignant neoplasm of sigmoid colon; C34.32 Malignant neoplasm of lower lobe, left bronchus or lung
CPT/HCPCS: 78306

== ENCOUNTER 2017-04-11 10:43 | Outpatient (RCR) | payer MEDICARE, OTHER ==
[~2017-04-11 10:43] MED LIST changes: -CATHETER FLUSH 10 ML SYR IV PRN
[2017-04-11 10:55] LABS: BASOPHILS % (AUTO) 1 % (0-10); EOSINOPHILS # (AUTO) 0.1 10^3/uL (0.0-0.3); EOSINOPHILS % (AUTO) 2 % (0-10); LYMPHOCYTES # (AUTO) 1.8 X 10^3 (1.0-4.0); LYMPHOCYTES % (AUTO) 24 % (12-44); MEAN CORPUSCULAR HEMOGLOBIN 30 PG (25-34); MEAN CORPUSCULAR HGB CONC 34 G/DL (32-36); MEAN CORPUSCULAR VOLUME 89 FL (80-99); MEAN PLATELET VOLUME 11.3 FL (7.4-10.4); MONOCYTES # (AUTO) 0.7 X 10^3 (0.0-1.0); MONOCYTES % (AUTO) 9 % (0-12); NEUTROPHILS % (AUTO) 65 % (42-75); PLATELET COUNT 155 10^3/uL (130-400); RED BLOOD COUNT 4.68 10^6/uL (4.35-5.85); RED CELL DISTRIBUTION WIDTH 13.9 % (10.0-14.5); WHITE BLOOD COUNT 7.8 10^3/uL (4.3-11.0)
[2017-04-11 11:12] LABS: ALANINE AMINOTRANSFERASE 30 U/L (0-55); ANION GAP 9 MMOL/L (5-14); ASPARTATE AMINO TRANSFERASE 24 U/L (5-34); BILIRUBIN,TOTAL 0.6 MG/DL (0.1-1.0); BLOOD UREA NITROGEN 8 MG/DL (7-18); BUN/CREATININE RATIO 8; CALCIUM 8.9 MG/DL (8.5-10.1); CARBON DIOXIDE 26 MMOL/L (21-32); CHLORIDE 106 MMOL/L (98-107); CREATININE SERUM 0.95 MG/DL (0.60-1.30); GFR ESTIMATED > 60; GLUCOSE 70 MG/DL (70-105); POTASSIUM 3.7 MMOL/L (3.6-5.0); SODIUM 141 MMOL/L (135-145); TOTAL PROTEIN 7.3 GM/DL (6.4-8.2)
== END 2017-04-13 | disposition home or self-care (01) ==
LOC: ONC 10:43
PROVIDERS: ATTEND Internal Medicine Hematology & Oncology
DX: C34.32 Malignant neoplasm of lower lobe, left bronchus or lung (principal); C18.7 Malignant neoplasm of sigmoid colon; C77.1 Secondary and unspecified malignant neoplasm of intrathoracic lymph nodes; R97.0 Elevated carcinoembryonic antigen [CEA]; I48.91 Unspecified atrial fibrillation; E87.6 Hypokalemia; E83.42 Hypomagnesemia; Z87.891 Personal history of nicotine dependence; Z92.21 Personal history of antineoplastic chemotherapy; Z79.899 Other long term (current) drug therapy
CPT/HCPCS: 36415; 80053; 82378; 85025; 99213

== ENCOUNTER → 2017-07-23 | Outpatient (CLI) | payer MEDICARE, OTHER ==
[~2017-07-23] MED LIST changes: +ACHD5005 PO; -HYDR-3812 PO
--- NOTE | 2017-07-24 14:53 | Diagnostic Imaging Report ---
PET/CT. INDICATION: Lung cancer and colon cancer. EXAMINATION: After intravenous administration of 14.09 mCi of F18-FDG, a series of overlapping emission and transmission PET images was obtained. In the coronal, transaxial and sagittal planes, the area imaged extended from the skull base through the upper thighs. FINDINGS: The previous PET/CT exam performed on 09/27/2015 noted slightly increased FDG uptake in a 1.1 cm nodule in the medial aspect of the left lung base. This had a maximum SUV of 2.7. On this exam, that nodular density is less conspicuous as mild scar formation has developed in the medial aspect of the left lung base. There is virtually no hypermetabolic activity associated with this finding and consequently I do suspect it is most likely a benign process. The previous exam also identified increased activity within the sigmoid colon with the maximum SUV of 6.5. It is my understanding that the patient subsequently underwent endoscopy which revealed a nonneoplastic polyp in this area. On this study, there is no hypermetabolic activity in the sigmoid colon to suggest malignancy. The prior study also identified slightly increased activity in the paraspinal musculature along the posterior aspect of the midcervical spine on the left. This had a maximum SUV of 5.8. There was no abnormality of the muscle on the CT images. On this study, the activity in this area does appear more intense and the maximum SUV in this area is now 8.1. Again, there is no discrete abnormality of the musculature on the CT images through this area. This finding would be atypical for neoplastic disease. Even so, MRI would be recommended for more sensitive evaluation of the muscle in this area. Also, there is a small area of slightly increased activity in the aryepiglottic fold on the right. This has a maximum SUV of 5.1. There was also some increased activity in this area on the prior exam but this area of activity is now eccentric to the right. Direct visualization would be recommended for further evaluation. There is no other hypermetabolic activity to suggest the presence of neoplasm. IMPRESSION: 1. The small nodule in the left lung base seen on the prior exam is no longer hypermetabolic. There is no hypermetabolic activity in the sigmoid colon either. 2. There is increased hypermetabolic activity in the paraspinal musculature on the left. This finding would be atypical for neoplastic disease but MRI would be recommended for further study. 3. The slightly increased hypermetabolic activity in the aryepiglottic fold on the right is questionable for neoplasm. Direct visualization would be recommended for further study. 4. No new abnormality has developed, otherwise. 5. These results were discussed with Dr. Ramsey. Dictated by: Dictated on workstation # [id number]
== END ==
LOC: RAD 10:37
PROVIDERS: ATTEND Nurse Practitioner Adult Health
DX: C34.32 Malignant neoplasm of lower lobe, left bronchus or lung (principal); C18.7 Malignant neoplasm of sigmoid colon

== ENCOUNTER → 2017-07-29 | Outpatient (CLI) | payer MEDICARE, OTHER ==
[~2017-07-29] MED LIST changes: +GADOBUTROL 10 MMOL/10 ML (GADAVIST) VIAL IV ONE
--- NOTE | 2017-07-29 13:52 | Diagnostic Imaging Report ---
PROCEDURE: MRI neck with and without contrast. TECHNIQUE: Multiplanar, multisequence MRI of the neck was performed with and without contrast. INDICATION: Abnormal PET scan. Lung and colon cancer. COMPARISON: None. FINDINGS: No mass or fluid collection in the neck. No lymphadenopathy. The cervical, carotid and vertebral artery flow voids are preserved. Normal bone marrow signal. No abnormal signal or enhancement in the cervical spinal cord. The major salivary glands are unremarkable. Normal tongue base and floor of the mouth. No focal mass or enhancement in the larynx or pharynx. Mild mucosal thickening in the floor of the right maxillary sinus. IMPRESSION: No mass, fluid collection or lymphadenopathy in the neck. No MRI findings to correspond with the focal uptake on the nuclear medicine FDG PET scan. Dictated by: Dictated on workstation # [id number]
--- NOTE | 2017-07-29 14:32 | Diagnostic Imaging Report ---
Bilateral upper extremity venous Doppler. INDICATION: Abnormal MRI exam. FINDINGS: The MRI neck exam performed earlier today raised the question of thrombus versus slow flow in the left internal jugular vein. On this exam, spectral and color flow imaging to both venous systems was performed. Both jugular veins are patent and show good blood flow. IMPRESSION: There is no evidence for thrombosis of either jugular vein. Dictated by: Dictated on workstation # [id number]
== END ==
LOC: RAD 11:29
PROVIDERS: ATTEND Internal Medicine Hematology & Oncology
DX: C34.90 Malignant neoplasm of unspecified part of unspecified bronchus or lung (principal); C18.9 Malignant neoplasm of colon, unspecified
CPT/HCPCS: 70543; 93970

== ENCOUNTER → 2017-10-22 | Outpatient (RCR) | payer MEDICARE, OTHER ==
[2017-07-24 09:03] LABS: BASOPHILS % (AUTO) 0 % (0-10); EOSINOPHILS # (AUTO) 0.1 10^3/uL (0.0-0.3); EOSINOPHILS % (AUTO) 1 % (0-10); HEMATOCRIT 42 % (40-54); HEMOGLOBIN 14.5 G/DL (13.3-17.7); LYMPHOCYTES # (AUTO) 1.9 X 10^3 (1.0-4.0); LYMPHOCYTES % (AUTO) 28 % (12-44); MEAN CORPUSCULAR HEMOGLOBIN 31 PG (25-34); MEAN CORPUSCULAR HGB CONC 35 G/DL (32-36); MEAN CORPUSCULAR VOLUME 89 FL (80-99); MEAN PLATELET VOLUME 12.3 FL (7.4-10.4); MONOCYTES # (AUTO) 0.6 X 10^3 (0.0-1.0); MONOCYTES % (AUTO) 9 % (0-12); NEUTROPHILS # (AUTO) 4.2 X 10^3 (1.8-7.8); NEUTROPHILS % (AUTO) 62 % (42-75); PLATELET COUNT 148 10^3/uL (130-400); RED BLOOD COUNT 4.68 10^6/uL (4.35-5.85); RED CELL DISTRIBUTION WIDTH 13.5 % (10.0-14.5); WHITE BLOOD COUNT 6.8 10^3/uL (4.3-11.0)
[2017-07-24 09:19] LABS: ALANINE AMINOTRANSFERASE 29 U/L (0-55); ALBUMIN 3.9 GM/DL (3.2-4.5); ALKALINE PHOSPHATASE 108 U/L (40-136); BILIRUBIN,TOTAL 0.4 MG/DL (0.1-1.0); BUN/CREATININE RATIO 8; CALCIUM 8.6 MG/DL (8.5-10.1); CARBON DIOXIDE 24 MMOL/L (21-32); CHLORIDE 104 MMOL/L (98-107); CREATININE SERUM 1.05 MG/DL (0.60-1.30); GFR ESTIMATED > 60; GLUCOSE 113 MG/DL (70-105); POTASSIUM 3.7 MMOL/L (3.6-5.0); SODIUM 138 MMOL/L (135-145); TOTAL PROTEIN 7.2 GM/DL (6.4-8.2)
[~2017-10-22] MED LIST changes: -GADOBUTROL 10 MMOL/10 ML (GADAVIST) VIAL IV ONE
[2017-10-22 09:30] LABS: BASOPHILS % (AUTO) 0 % (0-10); EOSINOPHILS # (AUTO) 0.1 10^3/uL (0.0-0.3); EOSINOPHILS % (AUTO) 1 % (0-10); HEMATOCRIT 43 % (40-54); HEMOGLOBIN 14.8 G/DL (13.3-17.7); LYMPHOCYTES # (AUTO) 1.6 X 10^3 (1.0-4.0); LYMPHOCYTES % (AUTO) 24 % (12-44); MEAN CORPUSCULAR HEMOGLOBIN 31 PG (25-34); MEAN CORPUSCULAR HGB CONC 34 G/DL (32-36); MEAN CORPUSCULAR VOLUME 90 FL (80-99); MEAN PLATELET VOLUME 12.1 FL (7.4-10.4); MONOCYTES # (AUTO) 0.6 X 10^3 (0.0-1.0); MONOCYTES % (AUTO) 9 % (0-12); NEUTROPHILS # (AUTO) 4.5 X 10^3 (1.8-7.8); NEUTROPHILS % (AUTO) 66 % (42-75); PLATELET COUNT 160 10^3/uL (130-400); RED BLOOD COUNT 4.79 10^6/uL (4.35-5.85); RED CELL DISTRIBUTION WIDTH 13.7 % (10.0-14.5); WHITE BLOOD COUNT 6.8 10^3/uL (4.3-11.0)
[2017-10-22 09:54] LABS: ALANINE AMINOTRANSFERASE 26 U/L (0-55); ALBUMIN 4.3 GM/DL (3.2-4.5); ALKALINE PHOSPHATASE 96 U/L (40-136); BILIRUBIN,TOTAL 0.6 MG/DL (0.1-1.0); BUN/CREATININE RATIO 12; CALCIUM 8.9 MG/DL (8.5-10.1); CARBON DIOXIDE 26 MMOL/L (21-32); CHLORIDE 107 MMOL/L (98-107); CREATININE SERUM 0.94 MG/DL (0.60-1.30); GFR ESTIMATED > 60; GLUCOSE 108 MG/DL (70-105); POTASSIUM 3.9 MMOL/L (3.6-5.0); SODIUM 140 MMOL/L (135-145); TOTAL PROTEIN 7.2 GM/DL (6.4-8.2)
== END | disposition home or self-care (01) ==
LOC: ONC 07-24 08:46
PROVIDERS: ATTEND Internal Medicine Hematology & Oncology
DX: C34.32 Malignant neoplasm of lower lobe, left bronchus or lung (principal); C18.7 Malignant neoplasm of sigmoid colon; C77.1 Secondary and unspecified malignant neoplasm of intrathoracic lymph nodes; R97.0 Elevated carcinoembryonic antigen [CEA]; I48.91 Unspecified atrial fibrillation; E87.6 Hypokalemia; E83.42 Hypomagnesemia; Z87.891 Personal history of nicotine dependence; Z92.21 Personal history of antineoplastic chemotherapy; Z79.899 Other long term (current) drug therapy
CPT/HCPCS: 36415; 80053; 82378; 85025; 99213

== ENCOUNTER → 2018-01-23 | Outpatient (CLI) | payer MEDICARE, OTHER ==
[~2018-01-23] MED LIST changes: +BARIUM SUSPENSION 2.1% (VANILLA SILQ) 450 ML PO ONE; +CATHETER FLUSH 10 ML SYR IV PRN; +IOHEXOL 350 MG/ML 100 ML (OMNIPAQUE 350) VIAL IV ONE; +NS 250 ML (IVPB) BAG IV ONE
--- NOTE | 2018-01-23 12:36 | Diagnostic Imaging Report ---
PROCEDURE: CT chest and abdomen with contrast. TECHNIQUE: Multiple contiguous axial images were obtained through the chest and abdomen after the administration of intravenous contrast. INDICATION: Lung cancer and colon cancer. COMPARISON: Comparison is made with prior CT from 12/06/2016. FINDINGS: CT chest: No axillary lymphadenopathy is detected. No mediastinal lymphadenopathy is seen. Questionable small lymph node in the right hilum appears stable. Left hilum is unremarkable. A small amount of pericardial fluid is noted. No pleural fluid is seen. Centrilobular emphysematous changes are noted. Tiny nodule left upper lobe adjacent to left hilum appears stable. No new parenchymal mass is seen. Post thoracotomy changes left hemithorax with multiple healed rib fractures again seen. IMPRESSION: Overall stable CT of the chest when compared with prior examination from 12/06/2016. CT abdomen: Subtle low densities described on prior CT within the right lobe of the liver are again noted and remain barely visible. The more posterior lesion is stable at 11 mm. Just inferior and anterior to this level is slightly larger low density measuring 17 mm. This also is stable when compared with prior exam. No new liver lesion is detected. The gallbladder is unremarkable. The pancreas and spleen are unremarkable. No adrenal mass is detected. The kidneys are unremarkable. Aorta is calcified but nonaneurysmal. There is an abdominal wall hernia in the left lower quadrant lateral to the left rectus muscle. This contains small bowel loops. Intra-abdominal bowel loops are normal caliber. There is no ascites. No lymphadenopathy is seen. IMPRESSION: Stable CT abdomen when compared with exam from 12/06/2016. Previously noted hypodense liver lesions are stable. Note is again made of a spigelian hernia on the left containing small bowel loops. No new abnormality is identified. Dictated by: Dictated on workstation # [id number]
--- NOTE | 2018-01-23 18:53 | Diagnostic Imaging Report ---
INDICATION: Lung carcinoma and colon carcinoma. TECHNIQUE: The patient was administered 26.3 mCi technetium-99m MDP intravenously, and whole-body imaging was performed after a three-hour delay. COMPARISON: Correlation is made with prior exam from 01/21/2017. FINDINGS: There is normal uptake of activity by the axial and appendicular skeleton. There is uptake by both kidneys with excretion into the urinary bladder. No abnormal foci of tracer accumulation are seen to suggest osseous metastatic disease. IMPRESSION: No scintigraphic evidence of osseous metastatic disease. Dictated by: Dictated on workstation # [id number]
== END ==
LOC: CARD 10:58
PROVIDERS: ATTEND Internal Medicine Hematology & Oncology
DX: C34.32 Malignant neoplasm of lower lobe, left bronchus or lung (principal); C18.7 Malignant neoplasm of sigmoid colon; K76.9 Liver disease, unspecified; K43.9 Ventral hernia without obstruction or gangrene
CPT/HCPCS: 71260; 74160; 78306

== ENCOUNTER 2018-01-27 09:38 | Outpatient (RCR) | payer MEDICARE, OTHER ==
[2018-01-23 10:08] LABS: BASOPHILS % (AUTO) 0 % (0-10); EOSINOPHILS % (AUTO) 0 % (0-10); HEMATOCRIT 44 % (40-54); HEMOGLOBIN 15.5 G/DL (13.3-17.7); LYMPHOCYTES # (AUTO) 1.3 X 10^3 (1.0-4.0); LYMPHOCYTES % (AUTO) 15 % (12-44); MEAN CORPUSCULAR HEMOGLOBIN 31 PG (25-34); MEAN CORPUSCULAR HGB CONC 36 G/DL (32-36); MEAN CORPUSCULAR VOLUME 88 FL (80-99); MEAN PLATELET VOLUME 11.8 FL (7.4-10.4); MONOCYTES # (AUTO) 0.3 X 10^3 (0.0-1.0); MONOCYTES % (AUTO) 3 % (0-12); NEUTROPHILS # (AUTO) 6.7 X 10^3 (1.8-7.8); NEUTROPHILS % (AUTO) 82 % (42-75); PLATELET COUNT 162 10^3/uL (130-400); RED BLOOD COUNT 4.93 10^6/uL (4.35-5.85); RED CELL DISTRIBUTION WIDTH 13.4 % (10.0-14.5); WHITE BLOOD COUNT 8.2 10^3/uL (4.3-11.0)
[2018-01-23 10:30] LABS: ALANINE AMINOTRANSFERASE 16 U/L (0-55); ALBUMIN 4.3 GM/DL (3.2-4.5); ALKALINE PHOSPHATASE 87 U/L (40-136); BILIRUBIN,TOTAL 0.9 MG/DL (0.1-1.0); BUN/CREATININE RATIO 10; CALCIUM 9.3 MG/DL (8.5-10.1); CARBON DIOXIDE 24 MMOL/L (21-32); CHLORIDE 104 MMOL/L (98-107); GFR ESTIMATED > 60; GLUCOSE 128 MG/DL (70-105); SODIUM 139 MMOL/L (135-145); TOTAL PROTEIN 7.4 GM/DL (6.4-8.2)
[~2018-01-27 09:38] MED LIST changes: -BARIUM SUSPENSION 2.1% (VANILLA SILQ) 450 ML PO ONE; -CATHETER FLUSH 10 ML SYR IV PRN; -IOHEXOL 350 MG/ML 100 ML (OMNIPAQUE 350) VIAL IV ONE; -NS 250 ML (IVPB) BAG IV ONE
== END 2018-02-11 | disposition home or self-care (01) ==
LOC: ONC 09:38
PROVIDERS: ATTEND Internal Medicine Hematology & Oncology
DX: C34.32 Malignant neoplasm of lower lobe, left bronchus or lung (principal); C18.7 Malignant neoplasm of sigmoid colon; C77.1 Secondary and unspecified malignant neoplasm of intrathoracic lymph nodes; R97.0 Elevated carcinoembryonic antigen [CEA]; I48.91 Unspecified atrial fibrillation; E87.6 Hypokalemia; E83.42 Hypomagnesemia; Z87.891 Personal history of nicotine dependence; Z92.21 Personal history of antineoplastic chemotherapy; Z79.899 Other long term (current) drug therapy
CPT/HCPCS: 36415; 80053; 82378; 85025; 99213

== ENCOUNTER 2018-05-28 12:12 | Emergency (ER) | payer MEDICARE, OTHER ==
[~2018-05-28] VITALS: Ht 180.3 cm; Wt 93.0 kg
[~2018-05-28 12:12] MED LIST changes: -POLY17PO23 PO; +POLY17PO31 PO
[2018-05-28 13:17] LABS: BASOPHILS % (AUTO) 0 % (0-10); EOSINOPHILS % (AUTO) 0 % (0-10); HEMATOCRIT 43 % (40-54); HEMOGLOBIN 15.1 G/DL (13.3-17.7); LYMPHOCYTES # (AUTO) 1.2 X 10^3 (1.0-4.0); LYMPHOCYTES % (AUTO) 14 % (12-44); MEAN CORPUSCULAR HEMOGLOBIN 32 PG (25-34); MEAN CORPUSCULAR HGB CONC 35 G/DL (32-36); MEAN CORPUSCULAR VOLUME 90 FL (80-99); MONOCYTES # (AUTO) 0.6 X 10^3 (0.0-1.0); MONOCYTES % (AUTO) 7 % (0-12); NEUTROPHILS # (AUTO) 6.7 X 10^3 (1.8-7.8); NEUTROPHILS % (AUTO) 79 % (42-75); PLATELET COUNT 158 10^3/uL (130-400); RED CELL DISTRIBUTION WIDTH 13.3 % (10.0-14.5); WHITE BLOOD COUNT 8.5 10^3/uL (4.3-11.0)
[2018-05-28] MEDS ORDERED: cefTRIAXone 1,000 MG/2.86 ml vial (IM ONLY) IM STA (13:19)
--- NOTE | 2018-05-28 13:19 | ED GU-Male ---
General Chief Complaint: -Male Stated Complaint: URINATING BLOOD Nursing Triage Note: PT STATES HE THOUGHT HE PASSED A KIDNEY STONE ON SATURDAY. STARTED URINATING BLOOD LATE THIS MORNING. Source: patient, spouse Exam Limitations: no limitations History of Present Illness Date Seen by Provider: May 28, 2018 Time Seen by Provider: 12:57 Initial Comments The patient presents to ER by private conveyance with his spouse and chief complaint that he is having some low back pain and hematuria. Last 3 days. He thinks he passed a kidney stone but he had some clots out Saturday and then the pain Went Away. He Has a History of One Kidney Stone Back in 2016 Was Not Caught on Imaging Because It Was Passed Spontaneously. He Said That His Urine Was Lightening up and Was Barely [place] Yesterday and Then This Morning His First Urine of the Day Was Clear. Today however around 11:00 he went and had another urine and it was dark red blood. There were still clots seen. His pain has completely resulted. He also was noted to have increased size abdominal swelling on his left side that is consistent with a hernia. He has had abdominal surgery to have colon resection partial secondary to colon cancer by Dr. Castro. He couldn't get in with his primary doctor today so he went and saw his cancer doctor Dr. Mora who follows him every 3 months. He says the last time he saw Dr. Mora had totally normal labs with no anemia. Allergies and Home Medications Allergies Coded Allergies: Penicillins (Verified Allergy, Unknown, PT HAS RECEIVED ROCEPHIN & ANCEF IN THE PAST W/O ISSUE, 12/11/16) latex (Verified Allergy, Unknown, HIVES, 12/03/16) Home Medications Acetaminophen 500 Mg Tablet, 500-1,000 MG PO Q6H PRN for PAIN-MILD, (Reported) Fluconazole 100 Mg Tablet, 100 MG PO DAILY Prescribed by: JOSELUIS SYLVESTER on 12/18/16 0854 Hydrocodone/Acetaminophen 1 Each Tablet, 1-2 EACH PO Q6H Prescribed by: NADEEM CASTRO on 12/15/16 1020 Patient Home Medication List Home Medication List Reviewed: Yes Review of Systems Review of Systems Constitutional: No chills, No diaphoresis EENTM: No hearing loss, No ear pain Respiratory: No cough, No short of breath Cardiovascular: No chest pain, No palpitations Gastrointestinal: No abdominal pain, No constipation, No diarrhea, No nausea, No vomiting Genitourinary: denies burning, denies discharge; dysuria, hematuria Musculoskeletal: back pain; No joint pain Past Tqqfyds-Fkwldv-Qgrjte Hx Patient Social History Alcohol Use: Occasionally Uses Number of Drinks Today: AA Alcohol Beverage of Choice: Beer Recreational Drug Use: No Type Used: Cigarettes Former Smoker, Quit: Oct 17, 2015 Recent Foreign Travel: No Contact w/Someone Who Travel: No Recent Infectious Disease Expo: No Recent Hopitalizations: No Physical Abuse: No Sexual Abuse: No Immunizations Up To Date Tetanus Booster (TDap): More than 5yrs Date of Pneumonia Vaccine: Apr 23, 2016 Seasonal Allergies Seasonal Allergies: No Past Medical History Surgeries: Yes (Sebaceous Cyst removed from back, lesion from neck, COLON RESECTION) Abdominal, Bowel Surgery, Lobectomy Respiratory: Yes (partial lobectomy in october 2015) Currently Using CPAP: No Currently Using BIPAP: No Cardiac: No Atrial Fibrillation Neurological: No Reproductive Disorders: No Sexually Transmitted Disease: No HIV/AIDS: No Genitourinary: No Kidney Stones Gastrointestinal: Yes (colon ca) Musculoskeletal: No Endocrine: No Loss of Vision: Bilateral Hearing Impairment: Denies Cancer: Yes Lung, Colon Psychosocial: No Integumentary: No Blood Disorders: No Adverse Reaction/Blood Tranf: No Family Medical History Cardiovascular disease 19 MOTHER Colon cancer 19 MOTHER (pancreatic cancer) Kidney disease G8 BROTHER Physical Exam Vital Signs Vital Signs - First Documented 05/28/18 12:35 Temp 96.9 Pulse 68 Resp 15 B/P (MAP) 158/106 (123) Pulse Ox 97 Capillary Refill : Less Than 3 Seconds Height, Weight, BMI Height: 5'11.00" Weight: 205lbs. 9.0oz. 92.930679gt; 26.5 BMI Method:Stated General Appearance: WD/WN, no apparent distress HEENT: PERRL/EOMI, pharynx normal Cardiovascular: normal peripheral pulses, regular rate, rhythm Respiratory: no respiratory distress, no accessory muscle use Gastrointestinal: normal bowel sounds, non tender, soft, other (large 8 cm hernia on the left lower quadrant abdomen wall with palpable and auscultated bowel sounds but no erythema, tenderness. Reducible not consistent with an incarcerated hernia.) Progress/Results/Core Measures Suspected Sepsis Recent Fever Within 48 Hours: No Infection Criteria Present: None New/Unexplained Altered Menta: No Sepsis Screen: No Definite Risk SIRS Temperature:96.9 Pulse: 68 Respiratory Rate: 15 Laboratory Tests 05/28/18 13:10: White Blood Count 8.5 Blood Pressure 158 /106 Mean: 123 Laboratory Tests 05/28/18 13:10: Creatinine 0.99, Platelet Count 158, Total Bilirubin 0.9 Results/Orders Lab Results Laboratory Tests Test 05/28/18 12:43 05/28/18 13:10 Range/Units Urine Color RED H Urine Clarity CLEAR Urine pH 6.5 5-9 Urine Specific [place] 1.010 L 1.016-1.022 Urine Protein 4+ NEGATIVE Urine Glucose (UA) NEGATIVE NEGATIVE Urine Ketones 1+ H NEGATIVE Urine Nitrite NEGATIVE NEGATIVE Urine Bilirubin NEGATIVE NEGATIVE Urine Urobilinogen NORMAL NORMAL MG/DL Urine Leukocyte Esterase 1+ H NEGATIVE Urine RBC (Auto) 5+ H NEGATIVE Urine RBC TNTC H /HPF Urine WBC 25-50 H /HPF Urine Squamous Epithelial Cells RARE /HPF Urine Renal Epithelial Cells NONE /HPF Urine Crystals NONE /LPF Urine Bacteria FEW H /HPF Urine Casts NONE /LPF Urine Mucus NEGATIVE /LPF Urine Culture Indicated YES White Blood Count 8.5 4.3-11.0 10^3/uL Red Blood Count 4.80 4.35-5.85 10^6/uL Hemoglobin 15.1 13.3-17.7 G/DL Hematocrit 43 40-54 % Mean Corpuscular Volume 90 80-99 FL Mean Corpuscular Hemoglobin 32 25-34 PG Mean Corpuscular Hemoglobin Concent 35 32-36 G/DL Red Cell Distribution Width 13.3 10.0-14.5 % Platelet Count 158 130-400 10^3/uL Mean Platelet Volume 12.0 H 7.4-10.4 FL Neutrophils (%) (Auto) 79 H 42-75 % Lymphocytes (%) (Auto) 14 12-44 % Monocytes (%) (Auto) 7 0-12 % Eosinophils (%) (Auto) 0 0-10 % Basophils (%) (Auto) 0 0-10 % Neutrophils # (Auto) 6.7 1.8-7.8 X 10^3 Lymphocytes # (Auto) 1.2 1.0-4.0 X 10^3 Monocytes # (Auto) 0.6 0.0-1.0 X 10^3 Eosinophils # (Auto) 0.0 0.0-0.3 10^3/uL Basophils # (Auto) 0.0 0.0-0.1 10^3/uL Sodium Level 137 135-145 MMOL/L Potassium Level 3.7 3.6-5.0 MMOL/L Chloride Level 101 98-107 MMOL/L Carbon Dioxide Level 27 21-32 MMOL/L Anion Gap 9 5-14 MMOL/L Blood Urea Nitrogen 10 7-18 MG/DL Creatinine 0.99 0.60-1.30 MG/DL Estimat Glomerular Filtration Rate > 60 BUN/Creatinine Ratio 10 Glucose Level 105 70-105 MG/DL Calcium Level 9.3 8.5-10.1 MG/DL Corrected Calcium 8.9 8.5-10.1 MG/DL Total Bilirubin 0.9 0.1-1.0 MG/DL Aspartate Amino Transf (AST/SGOT) 27 5-34 U/L Alanine Aminotransferase (ALT/SGPT) 26 0-55 U/L Alkaline Phosphatase 99 40-136 U/L Total Protein 7.5 6.4-8.2 GM/DL Albumin 4.5 3.2-4.5 GM/DL My Orders Orders - RAO OCHOA Ct Abd/Pelvis Wo(Kidney Stone) (05/28/18 13:05) Cbc With Automated Diff (05/28/18 13:05) Comprehensive Metabolic Panel (05/28/18 13:05) Ua Culture If Indicated (05/28/18 13:05) Ceftriaxone For Im Use (Rocephin For Im (05/28/18 13:19) Lidocaine 1% Inj 20 Ml (Xylocaine 1% Inj (05/28/18 13:37) Ceftriaxone For Iv Use (Rocephin For I (05/28/18 13:37) Urine Culture (05/28/18 12:43) Medications Given in ED Current Medications Medications Dose Ordered Sig/Jamilah Route Start Time Stop Time Status Last Admin Dose Admin Lidocaine HCl 20 ml STK-MED ONCE .ROUTE 05/28/18 13:37 05/28/18 13:40 DC 05/28/18 13:48 20 ML Vital Signs/I&O 05/28/18 12:35 Temp 96.9 Pulse 68 Resp 15 B/P (MAP) 158/106 (123) Pulse Ox 97 Capillary Refill : Less Than 3 Seconds Blood Pressure Mean: 123 Progress Note : Time: 13:18 Progress Note The plan to get a CT scan to look for kidney stone or other evidence of neurologic dysfunction. He has grossly bloody urine. Plan to give him Rocephin. He says his allergy to penicillin was a rash 20 years ago. Lab Diagnostic Imaging Diagonstic Imaging: CT (without contrast, kidney stone study) Plain Films/CT/US/NM/MRI: abdomen, pelvis Comments VIA [facility]. [place], [place] NAME: ZAKIA ARMSTRONG [facility] REC#: [id number] PT STATUS: REG ER : 1945 PHYSICIAN: RAO OCHOA MD ADMIT DATE: 05/28/18/ER Draft Date of Exam:05/28/18 CT ABD/PELVIS WO(KIDNEY STONE) PROCEDURE: CT urinary tract, rule out kidney stone. TECHNIQUE: Multiple contiguous axial images were obtained through the abdomen and pelvis without the use of intravenous contrast. INDICATION: Hematuria. Comparison is made with prior CT from 01/23/2018. The lung bases are clear. No discrete liver mass is seen. There appear to be small stones within the gallbladder. No biliary duct dilatation is identified. Pancreas and spleen are unremarkable. No adrenal mass is detected. No renal calculi are identified. No definite hydronephrosis is identified. Aorta is calcified but not aneurysmal. The left abdominal spigelian hernia containing bowel loops is again noted. Intra-abdominal loops do not appear to be abnormally dilated or obstructed. There is no ascites. There are postsurgical changes within the sigmoid. The bladder does demonstrate hyperdense mass measuring 5.3 x 2.8 cm. Prostate gland is enlarged measuring 5.2 cm in AP x 6.4 cm transverse. Bony structures appear nonacute. Subcutaneous cystic lesions in the right flank appears similar to CT dating back to 09/07/2015 and most consistent with benign etiology. This may represent a sebaceous cyst. IMPRESSION: 1. Cholelithiasis. 2. Left spigelian hernia, without evidence of obstruction. 3. No evidence of urinary tract calculi or obstruction. There is a hyperdense mass within the bladder. This may represent organized blood clot versus bladder mass. A urologic consultation is recommended. 4. Prostatomegaly. Dictated on workstation # [id number] Dict: 05/28/18 1337 Trans: 05/28/18 1347 [facility] [id number] Interpreted by: HAVEN BARAJAS MD Electronically signed by: Reviewed: Reviewed by Me Departure Impression Primary Impression: Hematuria, gross Additional Impression: Urinary tract infection Qualified Codes: N30.01 - Acute cystitis with hematuria Disposition: HOME, SELF-CARE Condition: Stable Departure-Patient Inst. Decision time for Depature: 14:40 Referrals: PATRIZIA TORRES MD (PCP/Family) Primary Care Physician TROY CARSON MD Patient Instructions: Urinary Tract Infection, Adult (DC) Add. Discharge Instructions: Today, Dr. Carson's office and make an appointment to follow up for possible urinary scope. histology supervisor the antibiotics and take one capsule twice a day for the next 7 days. Drink lots of fluids to help flush it out. If you cannot urinate or you have increasing pain or fever or other worrisome symptoms return to the ER. All discharge instructions reviewed with patient and/or family. Voiced understanding. Scripts Cephalexin (Cephalexin) 500 Mg Tablet 500 MG PO BID, #20 TAB 0 Refills Prov: RAO OCHOA 05/28/18 Copy Copies To 1: CHLOE COTE; PATRIZIA TORRES MD; TROY CARSON MD, TITUS J May 28, 2018 13:19
[2018-05-28] MEDS ORDERED: cefTRIAXone 1 GM/10 ML for IV (ROCEPHIN) ONE (13:37)
[2018-05-28] MEDS ORDERED: LIDOCAINE 1% INJ 20 ML 20 ML VIAL ONE (13:37)
[2018-05-28 13:40] LABS: ALANINE AMINOTRANSFERASE 26 U/L (0-55); ALBUMIN 4.5 GM/DL (3.2-4.5); ALKALINE PHOSPHATASE 99 U/L (40-136); BILIRUBIN,TOTAL 0.9 MG/DL (0.1-1.0); BUN/CREATININE RATIO 10; CALCIUM 9.3 MG/DL (8.5-10.1); CARBON DIOXIDE 27 MMOL/L (21-32); CHLORIDE 101 MMOL/L (98-107); CREATININE SERUM 0.99 MG/DL (0.60-1.30); GFR ESTIMATED > 60; GLUCOSE 105 MG/DL (70-105); POTASSIUM 3.7 MMOL/L (3.6-5.0); SODIUM 137 MMOL/L (135-145); TOTAL PROTEIN 7.5 GM/DL (6.4-8.2)
[2018-05-28 13:48] LABS: BILIRUBIN,URINE NEGATIVE (NEGATIVE); CLARITY,URINE CLEAR; COLOR,URINE RED; GLUCOSE, URINE (UA) NEGATIVE (NEGATIVE); KETONES,URINE 1+ (NEGATIVE); LEUKOCYTE ESTERASE ,URINE 1+ (NEGATIVE); NITRITE,URINE NEGATIVE (NEGATIVE); PH,URINE 6.5 (5-9); PROTEIN,URINE 4+ (NEGATIVE); UROBILINOGEN,URINE NORMAL (NORMAL)
--- NOTE | 2018-05-28 13:48 | Diagnostic Imaging Report ---
PROCEDURE: CT urinary tract, rule out kidney stone. TECHNIQUE: Multiple contiguous axial images were obtained through the abdomen and pelvis without the use of intravenous contrast. INDICATION: Hematuria. Comparison is made with prior CT from 01/23/2018. The lung bases are clear. No discrete liver mass is seen. There appear to be small stones within the gallbladder. No biliary duct dilatation is identified. Pancreas and spleen are unremarkable. No adrenal mass is detected. No renal calculi are identified. No definite hydronephrosis is identified. Aorta is calcified but not aneurysmal. The left abdominal spigelian hernia containing bowel loops is again noted. Intra-abdominal loops do not appear to be abnormally dilated or obstructed. There is no ascites. There are postsurgical changes within the sigmoid. The bladder does demonstrate hyperdense mass measuring 5.3 x 2.8 cm. Prostate gland is enlarged measuring 5.2 cm in AP x 6.4 cm transverse. Bony structures appear nonacute. Subcutaneous cystic lesions in the right flank appears similar to CT dating back to 09/07/2015 and most consistent with benign etiology. This may represent a sebaceous cyst. IMPRESSION: 1. Cholelithiasis. 2. Left spigelian hernia, without evidence of obstruction. 3. No evidence of urinary tract calculi or obstruction. There is a hyperdense mass within the bladder. This may represent organized blood clot versus bladder mass. A urologic consultation is recommended. 4. Prostatomegaly. Dictated by: Dictated on workstation # [id number]
[2018-05-28 14:16] LABS: BACTERIA,URINE FEW /HPF; RBC,URINE TNTC /HPF; SQUAMOUS EPITHELIAL CELL,UR RARE /HPF; WBC,URINE 25-50 /HPF
[2018-05-28] MEDS ORDERED: CEPH500T PO (14:56)
[2018-05-28 14:59] VITALS: BP 158/106
--- OUTSIDE RECORDS SUMMARY | 2018-05-28 15:51 | XMS REPORT | Continuity of Care Document ---
Author Author [facility] Organization [facility] Address Unknown Phone Unavailable Allergies Active Description Code Type Severity Reaction Onset Reported/Identified Relationship to Patient Clinical Status Yes latex [id number] Drug Allergy Unknown HIVES 12/03/2016 Yes Penicillins [id number] Drug Allergy Unknown N/A 12/03/2016 Yes Penicillins [id number] Drug Allergy Unknown PT HAS RECEIVED 12/11/2016 Medications There is no data. Problems Date Dx Coded Attending Type Code Diagnosis Diagnosed By CHLOE COTE Ot C34.32 MALIGNANT NEOPLASM OF LOWER LOBE, LEFT B CHLOE COTE Ot C77.1 SECONDARY AND UNSP MALIGNANT NEOPLASM OF CHLOE COTE Ot Z51.11 ENCOUNTER FOR ANTINEOPLASTIC CHEMOTHERAP CHLOE COTE Ot Z87.891 PERSONAL HISTORY OF NICOTINE DEPENDENCE 05/25/2011 Ot 276.1 HYPOSMOLALITY 05/25/2011 Ot 305.00 ALCOHOL ABUSE-UNSPEC 05/25/2011 Ot 305.1 TOBACCO USE DISORDER 05/25/2011 Ot 401.9 HYPERTENSION NOS 05/25/2011 Ot 473.2 CHR ETHMOIDAL SINUSITIS 05/25/2011 Ot 691.8 OTHER ATOPIC DERMATITIS 05/25/2011 Ot 780.4 DIZZINESS AND GIDDINESS 05/25/2011 Ot V58.69 OTH MED,LT, CURRENT USE 01/29/2013 NADEEM OROZCO MD Ot 214.1 LIPOMA SKIN NEC 09/07/2015 ROQUE DO, KAT L Ot N40.1 ENLARGED PROSTATE WITH LOWER URINARY TRA 09/07/2015 ROQUE DO, KAT L Ot R31.0 GROSS HEMATURIA 09/07/2015 ROQUE DO, KAT L Ot R91.1 SOLITARY PULMONARY NODULE 09/27/2015 NADEEM OROZCO MD Ot 784.2 09/27/2015 NADEEM OROZCO MD Ot V72.63 09/27/2015 NADEEM OROZCO MD Ot V72.81 09/27/2015 NADEEM OROZCO MD Ot V72.83 09/27/2015 NADEEM OROZCO MD Ot V74.8 09/27/2015 MELISSA MONZON, PATRIZIA L Ot R91.8 10/18/2015 MELISSA MONZON, PATRIZIA L Ot R91.8 11/10/2015 MELISSA MONZON, PATRIZIA L Ot L02.12 FURUNCLE OF NECK 11/29/2015 MELISSA MONZON, PATRIZIA L Ot L02.12 FURUNCLE OF NECK 12/02/2015 BAYRON COTEVIPUL Muñiz Ot C34.32 MALIGNANT NEOPLASM OF LOWER LOBE, LEFT B 12/02/2015 ROCAELBAYRON YARBROUGHVIPUL Muñiz Ot C77.1 SECONDARY AND UNSP MALIGNANT NEOPLASM OF 12/02/2015 ROCAELBAYRON YARBROUGHVIPUL Muñiz Ot Z87.891 PERSONAL HISTORY OF NICOTINE DEPENDENCE 12/09/2015 SUSHANT NOBLE Ot C34.32 MALIGNANT NEOPLASM OF LOWER LOBE, LEFT B 12/09/2015 SUSHANT NOBLEP Ot C77.1 SECONDARY AND UNSP MALIGNANT NEOPLASM OF 12/09/2015 SUSHANT NOBLE LICENSING ENGINEER Ot Z87.891 PERSONAL HISTORY OF NICOTINE DEPENDENCE 12/13/2015 MICHAEL QUACH MD Ot C34.32 MALIGNANT NEOPLASM OF LOWER LOBE, LEFT B 12/13/2015 MICHAEL QUACH MD Ot 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 12/13/2015 MICHAEL QUACH MD Ot T81.31XA DISRUPTION OF EXTERNAL OPERATION (SURGIC 12/13/2015 MICHAEL QUACH MD Ot T81.4XXA INFECTION FOLLOWING A PROCEDURE, INITIAL 12/13/2015 NADEEM OROZCO MD, Ot Z01.818 ENCOUNTER FOR OTHER PREPROCEDURAL EXAMIN 12/16/2015 NADEEM OROZCO MD, Ot K57.30 DVRTCLOS OF LG INT W/O PERFORATION OR AB 12/16/2015 NADEEM OROZCO MD, Ot K63.5 POLYP OF COLON 12/16/2015 NADEEM OROZCO MD, Ot K64.1 SECOND DEGREE HEMORRHOIDS 12/16/2015 NADEEM OROZCO MD, Ot Z12.11 ENCOUNTER FOR SCREENING FOR MALIGNANT NE 12/19/2015 NADEEM OROZCO MD, Ot K57.30 DVRTCLOS OF LG INT W/O PERFORATION OR AB 12/19/2015 NADEEM OROZCO MD Ot K63.5 POLYP OF COLON 12/19/2015 NADEEM OROZCO MD Ot K64.1 SECOND DEGREE HEMORRHOIDS 12/19/2015 NADEEM OROZCO MD, Ot Z12.11 ENCOUNTER FOR SCREENING FOR MALIGNANT NE 12/19/2015 NADEEM OROZCO MD, Ot K57.30 DVRTCLOS OF LG INT W/O PERFORATION OR AB 12/19/2015 NADEEM OROZCO MD Ot K63.5 POLYP OF COLON 12/19/2015 NADEEM OROZCO MD Ot K64.1 SECOND DEGREE HEMORRHOIDS 12/19/2015 NADEEM OROZCO MD, Ot Z12.11 ENCOUNTER FOR SCREENING FOR MALIGNANT NE 12/20/2015 NADEEM OROZCO MD, Ot K57.30 DVRTCLOS OF LG INT W/O PERFORATION OR AB 12/20/2015 NADEEM OROZCO MD, Ot K63.5 POLYP OF COLON 12/20/2015 NADEEM OROZCO MD Ot K64.1 SECOND DEGREE HEMORRHOIDS 12/20/2015 NADEEM OROZCO MD Ot Z12.11 ENCOUNTER FOR SCREENING FOR MALIGNANT NE 12/27/2015 NADEEM OROZCO MD Ot C18.9 MALIGNANT NEOPLASM OF COLON, UNSPECIFIED 12/27/2015 NADEEM OROZCO MD Ot Z01.818 ENCOUNTER FOR OTHER PREPROCEDURAL EXAMIN 12/27/2015 NADEEM OROZCO MD Ot Z11.2 ENCOUNTER FOR SCREENING FOR OTHER BACTER 12/29/2015 NADEEM OROZCO MD Ot C18.9 MALIGNANT NEOPLASM OF COLON, UNSPECIFIED 12/29/2015 NADEEM OROZCO MD Ot Z01.818 ENCOUNTER FOR OTHER PREPROCEDURAL EXAMIN 12/29/2015 NADEEM OROZCO MD Ot Z11.2 ENCOUNTER FOR SCREENING FOR OTHER BACTER 12/30/2015 NADEEM OROZCO MD Ot C18.7 MALIGNANT NEOPLASM OF SIGMOID COLON 12/30/2015 NADEEM OROZCO MD Ot Z85.118 PERSONAL HISTORY OF MALIGNANT NEOPLASM O 12/30/2015 NADEEM OROZCO MD Ot Z87.891 PERSONAL HISTORY OF NICOTINE DEPENDENCE 12/31/2015 NADEEM OROZCO MD Ot C18.7 MALIGNANT NEOPLASM OF SIGMOID COLON 12/31/2015 NADEEM OROZCO MD, Ot Z85.118 PERSONAL HISTORY OF MALIGNANT NEOPLASM O 12/31/2015 NADEEM OROZCO MD, Ot Z87.891 PERSONAL HISTORY OF NICOTINE DEPENDENCE 01/02/2016 NADEEM OROZCO MD, Ot C18.7 MALIGNANT NEOPLASM OF SIGMOID COLON 01/02/2016 NADEEM OROZCO MD, Ot Z85.118 PERSONAL HISTORY OF MALIGNANT NEOPLASM O 01/02/2016 NADEEM OROZCO MD, Ot Z87.891 PERSONAL HISTORY OF NICOTINE DEPENDENCE 01/02/2016 MICHAEL QUACH MD Ot C34.32 MALIGNANT NEOPLASM OF LOWER LOBE, LEFT B 01/02/2016 MICHAEL QUACH MD Ot 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 01/02/2016 MICHAEL QUACH MD Ot T81.31XA DISRUPTION OF EXTERNAL OPERATION (SURGIC 01/02/2016 MICHAEL QUACH MD, Ot T81.4XXA INFECTION FOLLOWING A PROCEDURE, INITIAL 01/03/2016 SUSHANT NOBLEP Ot C34.32 MALIGNANT NEOPLASM OF LOWER LOBE, LEFT B 01/03/2016 SUSHANT NOBLEP Ot C77.1 SECONDARY AND UNSP MALIGNANT NEOPLASM OF 01/03/2016 SUSHANT NOBLE Ot Z87.891 PERSONAL HISTORY OF NICOTINE DEPENDENCE 01/04/2016 NADEEM OROZCO MD, Ot C18.7 MALIGNANT NEOPLASM OF SIGMOID COLON 01/04/2016 NADEEM OROZCO MD, Ot Z85.118 PERSONAL HISTORY OF MALIGNANT NEOPLASM O 01/04/2016 NADEEM OROZCO MD, Ot Z87.891 PERSONAL HISTORY OF NICOTINE DEPENDENCE 01/05/2016 NADEEM OROZCO MD, Ot C18.7 MALIGNANT NEOPLASM OF SIGMOID COLON 01/05/2016 NADEEM OROZCO MD, Ot Z85.118 PERSONAL HISTORY OF MALIGNANT NEOPLASM O 01/05/2016 NADEEM OROZCO MD, Ot Z87.891 PERSONAL HISTORY OF NICOTINE DEPENDENCE 01/05/2016 NADEEM OROZCO MD, Ot C18.7 MALIGNANT NEOPLASM OF SIGMOID COLON 01/05/2016 NADEEM OROZCO MD, Ot Z85.118 PERSONAL HISTORY OF MALIGNANT NEOPLASM O 01/05/2016 NADEEM OROZCO MD, Ot Z87.891 PERSONAL HISTORY OF NICOTINE DEPENDENCE 01/05/2016 NADEEM OROZCO MD, Ot C18.7 MALIGNANT NEOPLASM OF SIGMOID COLON 01/05/2016 NADEEM OROZCO MD, Ot Z85.118 PERSONAL HISTORY OF MALIGNANT NEOPLASM O 01/05/2016 NADEEM OROZCO MD, Ot Z87.891 PERSONAL HISTORY OF NICOTINE DEPENDENCE 01/06/2016 NADEEM OROZCO MD, Ot C18.7 MALIGNANT NEOPLASM OF SIGMOID COLON 01/06/2016 NADEEM OROZCO MD, Ot Z85.118 PERSONAL HISTORY OF MALIGNANT NEOPLASM O 01/06/2016 NADEEM OROZCO MD, Ot Z87.891 PERSONAL HISTORY OF NICOTINE DEPENDENCE 01/06/2016 NADEEM OROZCO MD, Ot C18.7 MALIGNANT NEOPLASM OF SIGMOID COLON 01/06/2016 NADEEM OROZCO MD, Ot C34.32 MALIGNANT NEOPLASM OF LOWER LOBE, LEFT B 01/06/2016 NADEEM OROZCO MD, Ot D64.89 OTHER SPECIFIED ANEMIAS 01/06/2016 NADEEM OROZCO MD, Ot E87.1 HYPO-OSMOLALITY AND HYPONATREMIA 01/06/2016 NADEEM OROZCO MD, Ot E87.6 HYPOKALEMIA 01/06/2016 NADEEM OROZCO MD, Ot F43.21 ADJUSTMENT DISORDER WITH DEPRESSED MOOD 01/06/2016 NADEEM OROZCO MD, Ot J44.9 CHRONIC OBSTRUCTIVE PULMONARY DISEASE, U 01/06/2016 NADEEM OROZCO MD, Ot J98.11 ATELECTASIS 01/06/2016 NADEEM OROZCO MD, Ot K56.7 ILEUS, UNSPECIFIED 01/06/2016 NADEEM OROZCO MD, Ot N40.1 ENLARGED PROSTATE WITH LOWER URINARY TRA 01/06/2016 NADEEM OROZCO MD, Ot N99.89 OTH POSTPROCEDURAL COMPLICATIONS AND DIS 01/06/2016 NADEEM OROZCO MD, Ot R33.8 OTHER RETENTION OF URINE 01/06/2016 NADEEM OROZCO MD, Ot R63.0 ANOREXIA 01/06/2016 NADEEM OROZCO MD, Ot Z85.118 PERSONAL HISTORY OF MALIGNANT NEOPLASM O 01/06/2016 NADEEM OROZCO MD, Ot Z87.891 PERSONAL HISTORY OF NICOTINE DEPENDENCE 01/06/2016 NADEEM OROZCO MD, Ot Z90.2 ACQUIRED ABSENCE OF LUNG [PART OF] 01/11/2016 FABY HAQUE MD Ot C18.7 MALIGNANT NEOPLASM OF SIGMOID COLON 01/11/2016 FABY HAQUE MD Ot C34.32 MALIGNANT NEOPLASM OF LOWER LOBE, LEFT B 01/11/2016 FABY HAQUE MD Ot D64.89 OTHER SPECIFIED ANEMIAS 01/11/2016 FABY HAQUE MD Ot J44.9 CHRONIC OBSTRUCTIVE PULMONARY DISEASE, U 01/11/2016 FABY HAQUE MD Ot K56.7 ILEUS, UNSPECIFIED 01/11/2016 FABY HAQUE MD Ot K91.89 OTH POSTPROCEDURAL COMPLICATIONS AND DIS 01/11/2016 FABY HAQUE MD Ot N40.1 ENLARGED PROSTATE WITH LOWER URINARY TRA 01/11/2016 FABY HAQUE MD Ot N99.89 OTH POSTPROCEDURAL COMPLICATIONS AND DIS 01/11/2016 FABY HAQUE MD Ot R33.8 OTHER RETENTION OF URINE 01/11/2016 FABY HAQUE MD Ot R53.81 OTHER MALAISE 01/11/2016 FABY HAQUE MD Ot Z87.891 PERSONAL HISTORY OF NICOTINE DEPENDENCE 01/11/2016 FABY HAQUE MD Ot Z90.2 ACQUIRED ABSENCE OF LUNG [PART OF] 01/12/2016 FABY HAQUE MD Ot C18.7 MALIGNANT NEOPLASM OF SIGMOID COLON 01/12/2016 FABY HAQUE MD Ot C34.32 MALIGNANT NEOPLASM OF LOWER LOBE, LEFT B 01/12/2016 FABY HAQUE MD Ot D64.89 OTHER SPECIFIED ANEMIAS 01/12/2016 FABY HAQUE MD Ot J44.9 CHRONIC OBSTRUCTIVE PULMONARY DISEASE, U 01/12/2016 FABY HAQUE MD Ot K56.7 ILEUS, UNSPECIFIED 01/12/2016 FABY HAQUE MD Ot K91.89 OTH POSTPROCEDURAL COMPLICATIONS AND DIS 01/12/2016 FABY HAQUE MD Ot N40.1 ENLARGED PROSTATE WITH LOWER URINARY TRA 01/12/2016 FABY HAQUE MD Ot N99.89 OTH POSTPROCEDURAL COMPLICATIONS AND DIS 01/12/2016 FABY HAQUE MD Ot R33.8 OTHER RETENTION OF URINE 01/12/2016 FABY HAQUE MD Ot R53.81 OTHER MALAISE 01/12/2016 FABY HAQUE MD Ot Z87.891 PERSONAL HISTORY OF NICOTINE DEPENDENCE 01/12/2016 FABY HAQUE MD Ot Z90.2 ACQUIRED ABSENCE OF LUNG [PART OF] 01/13/2016 FABY HAQUE MD Ot C18.7 MALIGNANT NEOPLASM OF SIGMOID COLON 01/13/2016 FABY HAQUE MD Ot C34.32 MALIGNANT NEOPLASM OF LOWER LOBE, LEFT B 01/13/2016 FABY HAQUE MD Ot D64.89 OTHER SPECIFIED ANEMIAS 01/13/2016 FABY HAQUE MD Ot J44.9 CHRONIC OBSTRUCTIVE PULMONARY DISEASE, U 01/13/2016 FABY HAQUE MD Ot K56.7 ILEUS, UNSPECIFIED 01/13/2016 FABY HAQUE MD Ot K91.89 OTH POSTPROCEDURAL COMPLICATIONS AND DIS 01/13/2016 FABY HAQUE MD Ot N40.1 ENLARGED PROSTATE WITH LOWER URINARY TRA 01/13/2016 FABY HAQUE MD Ot N99.89 OTH POSTPROCEDURAL COMPLICATIONS AND DIS 01/13/2016 FABY HAQUE MD Ot R33.8 OTHER RETENTION OF URINE 01/13/2016 FABY HAQUE MD Ot R53.81 OTHER MALAISE 01/13/2016 FABY HAQUE MD Ot Z87.891 PERSONAL HISTORY OF NICOTINE DEPENDENCE 01/13/2016 FABY HAQUE MD Ot Z90.2 ACQUIRED ABSENCE OF LUNG [PART OF] 01/13/2016 FABY HAQUE MD Ot C18.7 MALIGNANT NEOPLASM OF SIGMOID COLON 01/13/2016 FABY HAQUE MD Ot C34.32 MALIGNANT NEOPLASM OF LOWER LOBE, LEFT B 01/13/2016 FABY HAQUE MD Ot D64.89 OTHER SPECIFIED ANEMIAS 01/13/2016 FABY HAQUE MD Ot E87.1 HYPO-OSMOLALITY AND HYPONATREMIA 01/13/2016 FABY HAQUE MD Ot J18.9 PNEUMONIA, UNSPECIFIED ORGANISM 01/13/2016 FABY HAQUE MD Ot J44.9 CHRONIC OBSTRUCTIVE PULMONARY DISEASE, U 01/13/2016 FABY HAQUE MD Ot K56.7 ILEUS, UNSPECIFIED 01/13/2016 FABY HAQUE MD Ot K91.89 OTH POSTPROCEDURAL COMPLICATIONS AND DIS 01/13/2016 FABY HAQUE MD Ot N40.1 ENLARGED PROSTATE WITH LOWER URINARY TRA 01/13/2016 FABY HAQUE MD Ot N99.89 OTH POSTPROCEDURAL COMPLICATIONS AND DIS 01/13/2016 FABY HAQUE MD Ot R33.8 OTHER RETENTION OF URINE 01/13/2016 FABY HAQUE MD Ot R53.81 OTHER MALAISE 01/13/2016 FABY HAQUE MD Ot Z87.891 PERSONAL HISTORY OF NICOTINE DEPENDENCE 01/13/2016 FABY HAQUE MD Ot Z90.2 ACQUIRED ABSENCE OF LUNG [PART OF] 01/20/2016 NADEEM OROZCO MD Ot B37.0 CANDIDAL STOMATITIS 01/20/2016 NADEEM OROZCO MD Ot C18.7 MALIGNANT NEOPLASM OF SIGMOID COLON 01/20/2016 NADEEM OROZCO MD, Ot C34.32 MALIGNANT NEOPLASM OF LOWER LOBE, LEFT B 01/20/2016 NADEEM OROZCO MD, Ot B37.0 CANDIDAL STOMATITIS 01/20/2016 NADEEM OROZCO MD, Ot C18.7 MALIGNANT NEOPLASM OF SIGMOID COLON 01/20/2016 NADEEM OROZCO MD, Ot C34.32 MALIGNANT NEOPLASM OF LOWER LOBE, LEFT B 01/20/2016 NADEEM OROZCO MD Ot 784.2 SWELLING IN HEAD NECK 01/20/2016 NADEEM OROZCO MD Ot V72.63 PRE-PROCEDURAL LABORATORY EXAMINATION 01/20/2016 NADEEM OROZCO MD Ot V72.81 [id number]-[id number] CARDIOVASCULAR 01/20/2016 NADEEM OROZCO MD Ot V72.83 EXAM PRE-OPERATIVE NEC 01/20/2016 NADEEM OROZCO MD Ot V74.8 SCREEN-BACTERIAL DIS NEC 01/20/2016 MELISSA MONZON, PATRIZIA Lucero Ot R91.8 OTHER NONSPECIFIC ABNORMAL FINDING OF CHAKA 01/20/2016 PATRIZIA TORRES MD Ot L02.12 FURUNCLE OF NECK 01/20/2016 CHLOE COTE Ot C34.32 MALIGNANT NEOPLASM OF LOWER LOBE, LEFT B 01/20/2016 CHLOE COTE Ot C77.1 SECONDARY AND UNSP MALIGNANT NEOPLASM OF 01/20/2016 CHLOE COTE Ot Z87.891 PERSONAL HISTORY OF NICOTINE DEPENDENCE 01/20/2016 SUSHANT NOBLE S LICENSING ENGINEER Ot C34.32 MALIGNANT NEOPLASM OF LOWER LOBE, LEFT B 01/20/2016 SUSHANT NOBLE LICENSING ENGINEER Ot C77.1 SECONDARY AND UNSP MALIGNANT NEOPLASM OF 01/20/2016 SUSHANT NOBLE LICENSING ENGINEER Ot Z87.891 PERSONAL HISTORY OF NICOTINE DEPENDENCE 01/20/2016 NADEEM OROZCO MD Ot B37.0 CANDIDAL STOMATITIS 01/20/2016 NADEEM OROZCO MD Ot C18.7 MALIGNANT NEOPLASM OF SIGMOID COLON 01/20/2016 NADEEM OROZCO MD Ot C34.32 MALIGNANT NEOPLASM OF LOWER LOBE, LEFT B 01/20/2016 MEGAN JAIN MD Ot C18.9 MALIGNANT NEOPLASM OF COLON, UNSPECIFIED 01/20/2016 MEGAN JAIN MD T Ot E86.1 HYPOVOLEMIA 01/20/2016 MEGAN JAIN MD T Ot F32.9 MAJOR DEPRESSIVE DISORDER, SINGLE EPISOD 01/20/2016 MEGAN JAIN MD T Ot J18.9 PNEUMONIA, UNSPECIFIED ORGANISM 01/20/2016 MEGAN JAIN MD T Ot R00.0 TACHYCARDIA, UNSPECIFIED 01/20/2016 MEGAN JAIN MD T Ot R10.84 GENERALIZED ABDOMINAL PAIN 01/20/2016 MEGAN JAIN MD T Ot R63.0 ANOREXIA 01/20/2016 NADEEM OROZCO MD Ot J18.9 PNEUMONIA, UNSPECIFIED ORGANISM 02/23/2016 CHLOE COTE Ot C34.32 MALIGNANT NEOPLASM OF LOWER LOBE, LEFT B 02/23/2016 CHLOE COTE Ot C77.1 SECONDARY AND UNSP MALIGNANT NEOPLASM OF 02/23/2016 CHLOE COTE Ot Z87.891 PERSONAL HISTORY OF NICOTINE DEPENDENCE 02/23/2016 NADEEM OROZCO MD Ot B37.0 CANDIDAL STOMATITIS 02/23/2016 NADEEM OROZCO MD Ot C18.7 MALIGNANT NEOPLASM OF SIGMOID COLON 02/23/2016 NADEEM OROZCO MD Ot C34.32 MALIGNANT NEOPLASM OF LOWER LOBE, LEFT B 02/27/2016 NADEEM OROZCO MD Ot J18.9 PNEUMONIA, UNSPECIFIED ORGANISM 03/02/2016 CHLOE COTE Ot C34.32 MALIGNANT NEOPLASM OF LOWER LOBE, LEFT B 03/02/2016 CHLOE COTE Ot C77.1 SECONDARY AND UNSP MALIGNANT NEOPLASM OF 03/02/2016 ROCAEL CHLOE Muñiz Ot Z87.891 PERSONAL HISTORY OF NICOTINE DEPENDENCE 03/08/2016 SUSHANT NOBLE Ot C18.7 MALIGNANT NEOPLASM OF SIGMOID COLON 03/15/2016 CHLOE COTE Ot C34.32 MALIGNANT NEOPLASM OF LOWER LOBE, LEFT B 03/15/2016 ROCAELCHLOE Ot C77.1 SECONDARY AND UNSP MALIGNANT NEOPLASM OF 03/15/2016 ROCAEL CHLOE Muñiz Ot Z87.891 PERSONAL HISTORY OF NICOTINE DEPENDENCE 03/20/2016 NADEEM OROZCO MD Ot 784.2 SWELLING IN HEAD NECK 03/20/2016 NADEEM OROZCO MD Ot V72.63 PRE-PROCEDURAL LABORATORY EXAMINATION 03/20/2016 NADEEM OROZCO MD Ot V72.81 [id number] CARDIOVASCULAR 03/20/2016 NADEEM OROZCO MD Ot V72.83 EXAM PRE-OPERATIVE NEC 03/20/2016 NADEEM OROZCO MD Ot V74.8 SCREEN-BACTERIAL DIS NEC 03/20/2016 MELISSA MONZON, PATRIZIA Lucero Ot R91.8 OTHER NONSPECIFIC ABNORMAL FINDING OF CHAKA 03/20/2016 MELISSA MONZON, PATRIZIA Lucero Ot L02.12 FURUNCLE OF NECK 03/20/2016 SUSHANT NOBLE Ot C34.32 MALIGNANT NEOPLASM OF LOWER LOBE, LEFT B 03/20/2016 SUSHANT NOBLEP Ot C77.1 SECONDARY AND UNSP MALIGNANT NEOPLASM OF 03/20/2016 SUSHANT NOBLEP Ot Z87.891 PERSONAL HISTORY OF NICOTINE DEPENDENCE 03/20/2016 NADEEM OROZCO MD Ot B37.0 CANDIDAL STOMATITIS 03/20/2016 NADEEM OROZCO MD Ot C18.7 MALIGNANT NEOPLASM OF SIGMOID COLON 03/20/2016 NADEEM OROZCO MD Ot C34.32 MALIGNANT NEOPLASM OF LOWER LOBE, LEFT B 03/20/2016 NADEEM OROZCO MD Ot J18.9 PNEUMONIA, UNSPECIFIED ORGANISM 03/20/2016 CHLOE COTE Ot C34.32 MALIGNANT NEOPLASM OF LOWER LOBE, LEFT B 03/20/2016 ROCAEL, BOBAN N Ot C77.1 SECONDARY AND UNSP MALIGNANT NEOPLASM OF 03/20/2016 CHLOE COTE N Ot Z87.891 PERSONAL HISTORY OF NICOTINE DEPENDENCE 03/20/2016 SUSHANT NOBLE S LICENSING ENGINEER Ot C18.7 MALIGNANT NEOPLASM OF SIGMOID COLON 03/22/2016 SUSHANT NOBLE S LICENSING ENGINEER Ot C34.32 MALIGNANT NEOPLASM OF LOWER LOBE, LEFT B 03/23/2016 CHLOE COTE N Ot C34.32 MALIGNANT NEOPLASM OF LOWER LOBE, LEFT B 03/23/2016 CHLOE COTE N Ot C77.1 SECONDARY AND UNSP MALIGNANT NEOPLASM OF 03/23/2016 CHLOE COTE N Ot Z87.891 PERSONAL HISTORY OF NICOTINE DEPENDENCE 03/28/2016 SUSHANT NOBLE LICENSING ENGINEER Ot C18.7 MALIGNANT NEOPLASM OF SIGMOID COLON 04/01/2016 CHLOE COTE N Ot C34.32 MALIGNANT NEOPLASM OF LOWER LOBE, LEFT B 04/01/2016 CHLOE COTE N Ot C77.1 SECONDARY AND UNSP MALIGNANT NEOPLASM OF 04/01/2016 CHLOE COTE N Ot Z87.891 PERSONAL HISTORY OF NICOTINE DEPENDENCE 04/12/2016 SUSHANT NOBLE LICENSING ENGINEER Ot C34.32 MALIGNANT NEOPLASM OF LOWER LOBE, LEFT B 04/16/2016 CHLOE COTE N Ot C34.32 MALIGNANT NEOPLASM OF LOWER LOBE, LEFT B 04/16/2016 CHLOE COTE N Ot C77.1 SECONDARY AND UNSP MALIGNANT NEOPLASM OF 04/16/2016 CHLOE COTE N Ot Z51.11 ENCOUNTER FOR ANTINEOPLASTIC CHEMOTHERAP 04/16/2016 CHLOE COTE N Ot Z87.891 PERSONAL HISTORY OF NICOTINE DEPENDENCE 04/17/2016 CHLOE COTE N Ot C34.32 MALIGNANT NEOPLASM OF LOWER LOBE, LEFT B 04/17/2016 CHLOE COTE N Ot C77.1 SECONDARY AND UNSP MALIGNANT NEOPLASM OF 04/17/2016 CHLOE COTE N Ot Z87.891 PERSONAL HISTORY OF NICOTINE DEPENDENCE 04/24/2016 CHLOE COTE N Ot C34.32 MALIGNANT NEOPLASM OF LOWER LOBE, LEFT B 04/24/2016 CHLOE COTE N Ot C77.1 SECONDARY AND UNSP MALIGNANT NEOPLASM OF 04/24/2016 CHLOE COTE N Ot Z87.891 PERSONAL HISTORY OF NICOTINE DEPENDENCE 05/21/2016 CHLOE COTE Ot C34.32 MALIGNANT NEOPLASM OF LOWER LOBE, LEFT B 05/21/2016 CHLOE COTE Ot C77.1 SECONDARY AND UNSP MALIGNANT NEOPLASM OF 05/21/2016 CHLOE COTE Ot Z87.891 PERSONAL HISTORY OF NICOTINE DEPENDENCE 06/18/2016 CHLOE COTE Ot C34.32 MALIGNANT NEOPLASM OF LOWER LOBE, LEFT B 06/18/2016 CHLOE COTE Ot C77.1 SECONDARY AND UNSP MALIGNANT NEOPLASM OF 06/18/2016 CHLOE COTE Ot Z23 ENCOUNTER FOR IMMUNIZATION 06/18/2016 CHLOE COTE Ot Z87.891 PERSONAL HISTORY OF NICOTINE DEPENDENCE 07/10/2016 NADEEM OROZCO MD Ot 784.2 SWELLING IN HEAD NECK 07/10/2016 NADEEM OROZCO MD Ot V72.63 PRE-PROCEDURAL LABORATORY EXAMINATION 07/10/2016 NADEEM OROZCO MD Ot V72.81 [id number]-[id number] CARDIOVASCULAR 07/10/2016 NADEEM OROZCO MD Ot V72.83 EXAM PRE-OPERATIVE NEC 07/10/2016 NADEEM OROZCO MD Ot V74.8 SCREEN-BACTERIAL DIS NEC 07/10/2016 MELISSA MONZON, PATRIZIA Lucero Ot R91.8 OTHER NONSPECIFIC ABNORMAL FINDING OF CHAKA 07/10/2016 PATRIZIA TORRES MD Ot L02.12 FURUNCLE OF NECK 07/10/2016 SUSHANT NOBLE Ot C34.32 MALIGNANT NEOPLASM OF LOWER LOBE, LEFT B 07/10/2016 SUSHANT NOBLE Ot C77.1 SECONDARY AND UNSP MALIGNANT NEOPLASM OF 07/10/2016 SUSHANT NOBLE Ot Z87.891 PERSONAL HISTORY OF NICOTINE DEPENDENCE 07/10/2016 NADEEM OROZCO MD Ot B37.0 CANDIDAL STOMATITIS 07/10/2016 NADEEM OROZCO MD Ot C18.7 MALIGNANT NEOPLASM OF SIGMOID COLON 07/10/2016 NADEEM OROZCO MD Ot C34.32 MALIGNANT NEOPLASM OF LOWER LOBE, LEFT B 07/10/2016 NADEEM OROZCO MD Ot J18.9 PNEUMONIA, UNSPECIFIED ORGANISM 07/10/2016 SUSHANT NOBLE Ot C18.7 MALIGNANT NEOPLASM OF SIGMOID COLON 07/10/2016 SUSHANT NOBLE LICENSING ENGINEER Ot C34.32 MALIGNANT NEOPLASM OF LOWER LOBE, LEFT B 07/10/2016 CHLOE COTE N Ot C34.32 MALIGNANT NEOPLASM OF LOWER LOBE, LEFT B 07/10/2016 CHLOE COTE N Ot C77.1 SECONDARY AND UNSP MALIGNANT NEOPLASM OF 07/10/2016 CHLOE COTE N Ot Z23 ENCOUNTER FOR IMMUNIZATION 07/10/2016 ROCAEL BAYRONVIPUL N Ot Z87.891 PERSONAL HISTORY OF NICOTINE DEPENDENCE 07/11/2016 SUSHANT NOBLE LICENSING ENGINEER Ot C34.32 MALIGNANT NEOPLASM OF LOWER LOBE, LEFT B 07/11/2016 SUSHANT NOBLE S LICENSING ENGINEER Ot C34.32 MALIGNANT NEOPLASM OF LOWER LOBE, LEFT B 07/12/2016 ROCAEL BAYRONVIPUL N Ot C34.32 MALIGNANT NEOPLASM OF LOWER LOBE, LEFT B 07/12/2016 CHLOE COTE N Ot C77.1 SECONDARY AND UNSP MALIGNANT NEOPLASM OF 07/12/2016 ROCAEL BAYRONVIPUL N Ot Z23 ENCOUNTER FOR IMMUNIZATION 07/12/2016 CHLOE COTE N Ot Z87.891 PERSONAL HISTORY OF NICOTINE DEPENDENCE 07/15/2016 CHLOE COTE N Ot C34.32 MALIGNANT NEOPLASM OF LOWER LOBE, LEFT B 07/15/2016 CHLOE COTE N Ot C77.1 SECONDARY AND UNSP MALIGNANT NEOPLASM OF 07/15/2016 ROCAEL CHLOE N Ot Z23 ENCOUNTER FOR IMMUNIZATION 07/15/2016 ROCAEL BAYRONVIPUL N Ot Z51.11 ENCOUNTER FOR ANTINEOPLASTIC CHEMOTHERAP 07/15/2016 ROCAEL BAYRONVIPUL N Ot Z87.891 PERSONAL HISTORY OF NICOTINE DEPENDENCE 07/16/2016 ROCAEL BAYRONVIPUL N Ot C34.32 MALIGNANT NEOPLASM OF LOWER LOBE, LEFT B 07/16/2016 ROCAEL BAYRONVIPUL N Ot C77.1 SECONDARY AND UNSP MALIGNANT NEOPLASM OF 07/16/2016 ROCAEL CHLOE N Ot Z23 ENCOUNTER FOR IMMUNIZATION 07/16/2016 ROCAEL CHLOE N Ot Z51.11 ENCOUNTER FOR ANTINEOPLASTIC CHEMOTHERAP 07/16/2016 ROCAEL CHLOE N Ot Z87.891 PERSONAL HISTORY OF NICOTINE DEPENDENCE 07/17/2016 SUSHANT NOBLE LICENSING ENGINEER Ot C34.32 MALIGNANT NEOPLASM OF LOWER LOBE, LEFT B 07/20/2016 ROCAEL CHLOE N Ot C34.32 MALIGNANT NEOPLASM OF LOWER LOBE, LEFT B 07/20/2016 CHLOE COTE N Ot C77.1 SECONDARY AND UNSP MALIGNANT NEOPLASM OF 07/20/2016 CHLOE COTE N Ot Z23 ENCOUNTER FOR IMMUNIZATION 07/20/2016 CHLOE COTE N Ot Z87.891 PERSONAL HISTORY OF NICOTINE DEPENDENCE 08/06/2016 SUSHANT NOBLE LICENSING ENGINEER Ot C34.32 MALIGNANT NEOPLASM OF LOWER LOBE, LEFT B 09/04/2016 CHLOE COTE N Ot C34.32 MALIGNANT NEOPLASM OF LOWER LOBE, LEFT B 09/04/2016 CHLOE COTE N Ot C77.1 SECONDARY AND UNSP MALIGNANT NEOPLASM OF 09/04/2016 CHLOE COTE N Ot Z23 ENCOUNTER FOR IMMUNIZATION 09/04/2016 CHLOE COTE N Ot Z87.891 PERSONAL HISTORY OF NICOTINE DEPENDENCE 10/11/2016 SUSHANT NOBLE LICENSING ENGINEER Ot C18.7 MALIGNANT NEOPLASM OF SIGMOID COLON 10/11/2016 SUSHANT NOBLE LICENSING ENGINEER Ot C34.32 MALIGNANT NEOPLASM OF LOWER LOBE, LEFT B 10/17/2016 CHLOE COTE N Ot C34.32 MALIGNANT NEOPLASM OF LOWER LOBE, LEFT B 10/17/2016 CHLOE COTE N Ot C77.1 SECONDARY AND UNSP MALIGNANT NEOPLASM OF 10/17/2016 CHLOE COTE N Ot Z23 ENCOUNTER FOR IMMUNIZATION 10/17/2016 CHLOE COTE N Ot Z87.891 PERSONAL HISTORY OF NICOTINE DEPENDENCE 10/19/2016 CHLOE COTE N Ot C34.32 MALIGNANT NEOPLASM OF LOWER LOBE, LEFT B 10/19/2016 CHLOE COTE N Ot C77.1 SECONDARY AND UNSP MALIGNANT NEOPLASM OF 10/19/2016 CHLOE COTE N Ot Z23 ENCOUNTER FOR IMMUNIZATION 10/19/2016 CHLOE COTE N Ot Z87.891 PERSONAL HISTORY OF NICOTINE DEPENDENCE 10/19/2016 CHLOE COTE N Ot C34.32 MALIGNANT NEOPLASM OF LOWER LOBE, LEFT B 10/19/2016 CHLOE COTE N Ot C77.1 SECONDARY AND UNSP MALIGNANT NEOPLASM OF 10/19/2016 ROCAEL BOBAN N Ot Z23 ENCOUNTER FOR IMMUNIZATION 10/19/2016 CHLOE COTE N Ot Z87.891 PERSONAL HISTORY OF NICOTINE DEPENDENCE 11/06/2016 SUSHANT NOBLE LICENSING ENGINEER Ot C18.7 MALIGNANT NEOPLASM OF SIGMOID COLON 11/06/2016 SUSHANT NOBLE LICENSING ENGINEER Ot C34.32 MALIGNANT NEOPLASM OF LOWER LOBE, LEFT B 12/03/2016 NADEEM OROZCO MD Ot Z01.818 ENCOUNTER FOR OTHER PREPROCEDURAL EXAMIN 12/03/2016 NADEEM OROZCO MD, Ot Z12.11 ENCOUNTER FOR SCREENING FOR MALIGNANT NE 12/03/2016 NADEEM OROZCO MD, Ot Z85.038 PERSONAL HISTORY OF MALIGNANT NEOPLASM O 12/05/2016 NADEEM OROZCO MD Ot C34.92 MALIGNANT NEOPLASM OF UNSP PART OF LEFT 12/05/2016 NADEEM OROZCO MD, Ot D37.4 NEOPLASM OF UNCERTAIN BEHAVIOR OF COLON 12/05/2016 NADEEM OROZCO MD, Ot K64.1 SECOND DEGREE HEMORRHOIDS 12/05/2016 NADEEM OROZCO MD, Ot Z85.038 PERSONAL HISTORY OF MALIGNANT NEOPLASM O 12/05/2016 NADEEM OROZCO MD, Ot Z87.891 PERSONAL HISTORY OF NICOTINE DEPENDENCE 12/05/2016 NADEEM OROZCO MD Ot Z98.0 INTESTINAL BYPASS AND ANASTOMOSIS STATUS 12/07/2016 NADEEM OROZCO MD, Ot K63.9 DISEASE OF INTESTINE, UNSPECIFIED 12/07/2016 NADEEM OROZCO MD Ot Z01.818 ENCOUNTER FOR OTHER PREPROCEDURAL EXAMIN 12/07/2016 NADEEM OROZCO MD Ot Z11.2 ENCOUNTER FOR SCREENING FOR OTHER BACTER 12/07/2016 CHLOE COTE Ot C34.32 MALIGNANT NEOPLASM OF LOWER LOBE, LEFT B 12/07/2016 CHLOE COTE Ot C77.1 SECONDARY AND UNSP MALIGNANT NEOPLASM OF 12/07/2016 CHLOE COTE Ot Z87.891 PERSONAL HISTORY OF NICOTINE DEPENDENCE 12/11/2016 NADEEM OROZCO MD, Ot K63.9 DISEASE OF INTESTINE, UNSPECIFIED 12/11/2016 NADEEM OROZCO MD Ot Z01.818 ENCOUNTER FOR OTHER PREPROCEDURAL EXAMIN 12/11/2016 NADEEM OROZCO MD Ot Z11.2 ENCOUNTER FOR SCREENING FOR OTHER BACTER 12/12/2016 NADEEM OROZCO MD Ot C18.9 MALIGNANT NEOPLASM OF COLON, UNSPECIFIED 12/12/2016 NADEEM OROZCO MD Ot N40.0 BENIGN PROSTATIC HYPERPLASIA WITHOUT LOW 12/12/2016 NADEEM OROZCO MD, Ot R59.0 LOCALIZED ENLARGED LYMPH NODES 12/13/2016 NADEEM OROZCO MD, Ot J44.9 CHRONIC OBSTRUCTIVE PULMONARY DISEASE, U 12/13/2016 NADEEM OROZCO MD, Ot K43.2 INCISIONAL HERNIA WITHOUT OBSTRUCTION OR 12/13/2016 NADEEM OROZCO MD, Ot 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 12/13/2016 NADEEM OROZCO MD, Ot K56.69 OTHER INTESTINAL OBSTRUCTION 12/13/2016 NADEEM OROZCO MD, Ot K63.0 ABSCESS OF INTESTINE 12/13/2016 NADEEM OROZCO MD, Ot Z85.038 PERSONAL HISTORY OF MALIGNANT NEOPLASM O 12/13/2016 NADEEM OROZCO MD, Ot Z85.118 PERSONAL HISTORY OF MALIGNANT NEOPLASM O 12/13/2016 NADEEM OROZCO MD, Ot Z87.891 PERSONAL HISTORY OF NICOTINE DEPENDENCE 12/13/2016 NADEEM OROZCO MD, Ot Z90.2 ACQUIRED ABSENCE OF LUNG [PART OF] 12/13/2016 NADEEM OROZCO MD, Ot Z90.49 ACQUIRED ABSENCE OF OTHER SPECIFIED PART 12/14/2016 NADEEM OROZCO MD, Ot J44.9 CHRONIC OBSTRUCTIVE PULMONARY DISEASE, U 12/14/2016 NADEEM OROZCO MD, Ot K43.2 INCISIONAL HERNIA WITHOUT OBSTRUCTION OR 12/14/2016 NADEEM OROZCO MD, Ot 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 12/14/2016 NADEEM OROZCO MD, Ot K56.69 OTHER INTESTINAL OBSTRUCTION 12/14/2016 NADEEM OROZCO MD, Ot K63.0 ABSCESS OF INTESTINE 12/14/2016 NADEEM OROZCO MD, Ot Z85.038 PERSONAL HISTORY OF MALIGNANT NEOPLASM O 12/14/2016 NADEEM OROZCO MD Ot Z85.118 PERSONAL HISTORY OF MALIGNANT NEOPLASM O 12/14/2016 NADEEM OROZCO MD, Ot Z87.891 PERSONAL HISTORY OF NICOTINE DEPENDENCE 12/14/2016 NADEEM OROZCO MD, Ot Z90.2 ACQUIRED ABSENCE OF LUNG [PART OF] 12/14/2016 NADEEM OROZCO MD, Ot Z90.49 ACQUIRED ABSENCE OF OTHER SPECIFIED PART 12/14/2016 NADEEM OROZCO MD, Ot C34.92 MALIGNANT NEOPLASM OF UNSP PART OF LEFT 12/14/2016 NADEEM OROZCO MD, Ot D37.4 NEOPLASM OF UNCERTAIN BEHAVIOR OF COLON 12/14/2016 NADEEM OROZCO MD, Ot K64.1 SECOND DEGREE HEMORRHOIDS 12/14/2016 NADEEM OROZCO MD, Ot Z85.038 PERSONAL HISTORY OF MALIGNANT NEOPLASM O 12/14/2016 NADEEM OROZCO MD, Ot Z87.891 PERSONAL HISTORY OF NICOTINE DEPENDENCE 12/14/2016 NADEEM OROZCO MD, Ot Z98.0 INTESTINAL BYPASS AND ANASTOMOSIS STATUS 12/14/2016 NADEEM OROZCO MD, Ot C18.9 MALIGNANT NEOPLASM OF COLON, UNSPECIFIED 12/14/2016 NADEEM OROZCO MD, Ot N40.0 BENIGN PROSTATIC HYPERPLASIA WITHOUT LOW 12/14/2016 NADEEM OROZCO MD, Ot R59.0 LOCALIZED ENLARGED LYMPH NODES 12/15/2016 NADEEM OROZCO MD, Ot J44.9 CHRONIC OBSTRUCTIVE PULMONARY DISEASE, U 12/15/2016 NADEEM OROZCO MD, Ot K43.2 INCISIONAL HERNIA WITHOUT OBSTRUCTION OR 12/15/2016 NADEEM OROZCO MD, Ot 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 12/15/2016 NADEEM OROZCO MD, Ot K56.69 OTHER INTESTINAL OBSTRUCTION 12/15/2016 NADEEM OROZCO MD, Ot K63.0 ABSCESS OF INTESTINE 12/15/2016 NADEEM OROZCO MD, Ot Z85.038 PERSONAL HISTORY OF MALIGNANT NEOPLASM O 12/15/2016 NADEEM OROZCO MD, Ot Z85.118 PERSONAL HISTORY OF MALIGNANT NEOPLASM O 12/15/2016 NADEEM OROZCO MD, Ot Z87.891 PERSONAL HISTORY OF NICOTINE DEPENDENCE 12/15/2016 NADEEM OROZCO MD, Ot Z90.2 ACQUIRED ABSENCE OF LUNG [PART OF] 12/15/2016 NADEEM OROZCO MD, Ot Z90.49 ACQUIRED ABSENCE OF OTHER SPECIFIED PART 12/16/2016 NADEEM OROZCO MD, Ot J44.9 CHRONIC OBSTRUCTIVE PULMONARY DISEASE, U 12/16/2016 NADEEM OROZCO MD, Ot K43.2 INCISIONAL HERNIA WITHOUT OBSTRUCTION OR 12/16/2016 NADEEM OROZCO MD, Ot 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 12/16/2016 NADEEM OROZCO MD, Ot K56.69 OTHER INTESTINAL OBSTRUCTION 12/16/2016 NADEEM OROZCO MD, Ot K63.0 ABSCESS OF INTESTINE 12/16/2016 NADEEM OROZCO MD, Ot Z85.038 PERSONAL HISTORY OF MALIGNANT NEOPLASM O 12/16/2016 NADEEM OROZCO MD, Ot Z85.118 PERSONAL HISTORY OF MALIGNANT NEOPLASM O 12/16/2016 NADEEM OROZCO MD, Ot Z87.891 PERSONAL HISTORY OF NICOTINE DEPENDENCE 12/16/2016 NADEEM OROZCO MD, Ot Z90.2 ACQUIRED ABSENCE OF LUNG [PART OF] 12/16/2016 NADEEM OROZCO MD, Ot Z90.49 ACQUIRED ABSENCE OF OTHER SPECIFIED PART 12/16/2016 NADEEM OROZCO MD, Ot B37.0 CANDIDAL STOMATITIS 12/16/2016 NADEEM OROZCO MD, Ot I48.91 UNSPECIFIED ATRIAL FIBRILLATION 12/16/2016 NADEEM OROZCO MD, Ot J44.9 CHRONIC OBSTRUCTIVE PULMONARY DISEASE, U 12/16/2016 NADEEM OROZCO MD, Ot K43.2 INCISIONAL HERNIA WITHOUT OBSTRUCTION OR 12/16/2016 NADEEM OROZCO MD, Ot 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 12/16/2016 NADEEM OROZCO MD, Ot K63.0 ABSCESS OF INTESTINE 12/16/2016 NADEEM OROZCO MD, Ot Z85.038 PERSONAL HISTORY OF MALIGNANT NEOPLASM O 12/16/2016 NADEEM OROZCO MD, Ot Z85.118 PERSONAL HISTORY OF MALIGNANT NEOPLASM O 12/16/2016 NADEEM OROZCO MD, Ot Z87.891 PERSONAL HISTORY OF NICOTINE DEPENDENCE 12/16/2016 NADEEM OROZCO MD, Ot Z90.2 ACQUIRED ABSENCE OF LUNG [PART OF] 12/16/2016 NADEEM OROZCO MD, Ot Z90.49 ACQUIRED ABSENCE OF OTHER SPECIFIED PART 12/26/2016 NADEEM OROZCO MD, Ot C34.92 MALIGNANT NEOPLASM OF UNSP PART OF LEFT 12/26/2016 NADEEM OROZCO MD, Ot D37.4 NEOPLASM OF UNCERTAIN BEHAVIOR OF COLON 12/26/2016 NADEEM OROZCO MD, Ot K64.1 SECOND DEGREE HEMORRHOIDS 12/26/2016 NADEEM OROZCO MD, Ot Z85.038 PERSONAL HISTORY OF MALIGNANT NEOPLASM O 12/26/2016 NADEEM OROZCO MD, Ot Z87.891 PERSONAL HISTORY OF NICOTINE DEPENDENCE 12/26/2016 NADEEM OROZCO MD, Ot Z98.0 INTESTINAL BYPASS AND ANASTOMOSIS STATUS 01/04/2017 NADEEM OROZCO MD, Ot C18.9 MALIGNANT NEOPLASM OF COLON, UNSPECIFIED 01/04/2017 NADEEM OROZCO MD, Ot N40.0 BENIGN PROSTATIC HYPERPLASIA WITHOUT LOW 01/04/2017 NADEEM OROZCO MD, Ot R59.0 LOCALIZED ENLARGED LYMPH NODES 01/16/2017 ROCAELCHLOE N Ot C34.32 MALIGNANT NEOPLASM OF LOWER LOBE, LEFT B 01/16/2017 ROCAELCHLOE N Ot C77.1 SECONDARY AND UNSP MALIGNANT NEOPLASM OF 01/16/2017 ROCAEL CHLOE Muñiz Ot Z87.891 PERSONAL HISTORY OF NICOTINE DEPENDENCE 01/23/2017 ROCAELCHLOE N Ot C18.7 MALIGNANT NEOPLASM OF SIGMOID COLON 01/23/2017 ROCAEL CHLOE N Ot C34.32 MALIGNANT NEOPLASM OF LOWER LOBE, LEFT B 01/23/2017 ROCAEL CHLOE N Ot C18.7 MALIGNANT NEOPLASM OF SIGMOID COLON 01/23/2017 ROCAELCHLOE N Ot C34.32 MALIGNANT NEOPLASM OF LOWER LOBE, LEFT B 01/23/2017 ROCAEL, CHLOE N Ot C18.7 MALIGNANT NEOPLASM OF SIGMOID COLON 01/23/2017 ROCAEL, BOBAN N Ot C34.32 MALIGNANT NEOPLASM OF LOWER LOBE, LEFT B 02/13/2017 ROCAEL, CHLOE N Ot C18.7 MALIGNANT NEOPLASM OF SIGMOID COLON 02/13/2017 ROCAEL CHLOE N Ot C34.32 MALIGNANT NEOPLASM OF LOWER LOBE, LEFT B 04/11/2017 ROCAEL, CHLOE N Ot C34.32 MALIGNANT NEOPLASM OF LOWER LOBE, LEFT B 04/11/2017 ROCAELCHLOE N Ot C77.1 SECONDARY AND UNSP MALIGNANT NEOPLASM OF 04/11/2017 ROCAEL CHLOE N Ot Z87.891 PERSONAL HISTORY OF NICOTINE DEPENDENCE 04/12/2017 ROCAEL, CHLOE N Ot C18.7 MALIGNANT NEOPLASM OF SIGMOID COLON 04/12/2017 ROCAELCHLOE N Ot C34.32 MALIGNANT NEOPLASM OF LOWER LOBE, LEFT B 04/12/2017 ROCAELCHLOE N Ot C77.1 SECONDARY AND UNSP MALIGNANT NEOPLASM OF 04/12/2017 ROCAELCHLOE N Ot E83.42 HYPOMAGNESEMIA 04/12/2017 CHLOE COTE N Ot E87.6 HYPOKALEMIA 04/12/2017 CHLOE COTE N Ot I48.91 UNSPECIFIED ATRIAL FIBRILLATION 04/12/2017 CHLOE COTE Ot R97.0 ELEVATED CARCINOEMBRYONIC ANTIGEN [CEA] 04/12/2017 CHLOE COTE Ot Z79.899 OTHER ELECTRONIC EQUIPMENT REPAIRER (CURRENT) DRUG THERAPY 04/12/2017 CHLOE COTE N Ot Z87.891 PERSONAL HISTORY OF NICOTINE DEPENDENCE 04/12/2017 CHLOE COTE N Ot Z92.21 PERSONAL HISTORY OF ANTINEOPLASTIC CHEMO 04/13/2017 CHLOE COTE N Ot C18.7 MALIGNANT NEOPLASM OF SIGMOID COLON 04/13/2017 CHLOE COTE N Ot C34.32 MALIGNANT NEOPLASM OF LOWER LOBE, LEFT B 04/13/2017 CHLOE COTE N Ot C77.1 SECONDARY AND UNSP MALIGNANT NEOPLASM OF 04/13/2017 CHLOE COTE N Ot E83.42 HYPOMAGNESEMIA 04/13/2017 CHLOE COTE N Ot E87.6 HYPOKALEMIA 04/13/2017 CHLOE COTE Ot I48.91 UNSPECIFIED ATRIAL FIBRILLATION 04/13/2017 CHLOE COTE Ot R97.0 ELEVATED CARCINOEMBRYONIC ANTIGEN [CEA] 04/13/2017 CHLOE COTE Ot Z79.899 OTHER ELECTRONIC EQUIPMENT REPAIRER (CURRENT) DRUG THERAPY 04/13/2017 CHLOE COTE Ot Z87.891 PERSONAL HISTORY OF NICOTINE DEPENDENCE 04/13/2017 CHLOE COTE Ot Z92.21 PERSONAL HISTORY OF ANTINEOPLASTIC CHEMO 07/25/2017 SUSHANT NOBLE LICENSING ENGINEER Ot C18.7 MALIGNANT NEOPLASM OF SIGMOID COLON 07/25/2017 SUSHANT NOBLE LICENSING ENGINEER Ot C34.32 MALIGNANT NEOPLASM OF LOWER LOBE, LEFT B 07/25/2017 ROCAEL CHLOE N Ot C18.7 MALIGNANT NEOPLASM OF SIGMOID COLON 07/25/2017 ROCAEL BAYRONVIPUL N Ot C34.32 MALIGNANT NEOPLASM OF LOWER LOBE, LEFT B 07/25/2017 CHLOE COTE N Ot C77.1 SECONDARY AND UNSP MALIGNANT NEOPLASM OF 07/25/2017 CHLOE COTE N Ot E83.42 HYPOMAGNESEMIA 07/25/2017 CHLOE COTE N Ot E87.6 HYPOKALEMIA 07/25/2017 CHLOE COTE Ot I48.91 UNSPECIFIED ATRIAL FIBRILLATION 07/25/2017 CHLOE COTE Ot R97.0 ELEVATED CARCINOEMBRYONIC ANTIGEN [CEA] 07/25/2017 CHLOE COTE Ot Z79.899 OTHER ELECTRONIC EQUIPMENT REPAIRER (CURRENT) DRUG THERAPY 07/25/2017 CHLOE COTE Ot Z87.891 PERSONAL HISTORY OF NICOTINE DEPENDENCE 07/25/2017 CHLOE COTE Ot Z92.21 PERSONAL HISTORY OF ANTINEOPLASTIC CHEMO 07/26/2017 NADEEM OROZCO MD Ot 784.2 SWELLING IN HEAD NECK 07/26/2017 NADEEM OROZCO MD, Ot V72.63 PRE-PROCEDURAL LABORATORY EXAMINATION 07/26/2017 NADEEM OROZCO MD, Ot V72.81 [id number] CARDIOVASCULAR 07/26/2017 NADEEM OROZCO MD, Ot V72.83 EXAM PRE-OPERATIVE NEC 07/26/2017 NADEEM OROZCO MD Ot V74.8 SCREEN-BACTERIAL DIS NEC 07/26/2017 PATRIZIA TORRES MD Ot R91.8 OTHER NONSPECIFIC ABNORMAL FINDING OF CHAKA 07/26/2017 PATRIZIA TORRES MD Ot L02.12 FURUNCLE OF NECK 07/26/2017 SUSHANT NOBLE Ot C34.32 MALIGNANT NEOPLASM OF LOWER LOBE, LEFT B 07/26/2017 SUSHANT NOBLE Ot C77.1 SECONDARY AND UNSP MALIGNANT NEOPLASM OF 07/26/2017 SUSHANT NOBLE Ot Z87.891 PERSONAL HISTORY OF NICOTINE DEPENDENCE 07/26/2017 NADEEM OROZCO MD Ot B37.0 CANDIDAL STOMATITIS 07/26/2017 NADEEM OROZCO MD Ot C18.7 MALIGNANT NEOPLASM OF SIGMOID COLON 07/26/2017 NADEEM OROZCO MD Ot C34.32 MALIGNANT NEOPLASM OF LOWER LOBE, LEFT B 07/26/2017 NADEEM OROZCO MD Ot J18.9 PNEUMONIA, UNSPECIFIED ORGANISM 07/26/2017 SUSHANT NOBLE Ot C18.7 MALIGNANT NEOPLASM OF SIGMOID COLON 07/26/2017 SUSHANT NOBLE Ot C34.32 MALIGNANT NEOPLASM OF LOWER LOBE, LEFT B 07/26/2017 SUSHANT NOBLE Ot C34.32 MALIGNANT NEOPLASM OF LOWER LOBE, LEFT B 07/26/2017 SUSHANT NOBLE LICENSING ENGINEER Ot C18.7 MALIGNANT NEOPLASM OF SIGMOID COLON 07/26/2017 SUSHANT NOBLE LICENSING ENGINEER Ot C34.32 MALIGNANT NEOPLASM OF LOWER LOBE, LEFT B 07/26/2017 ROCAELCHLOE N Ot C18.7 MALIGNANT NEOPLASM OF SIGMOID COLON 07/26/2017 CHLOE COTE N Ot C34.32 MALIGNANT NEOPLASM OF LOWER LOBE, LEFT B 07/26/2017 NADEEM OROZCO MD Ot C18.9 MALIGNANT NEOPLASM OF COLON, UNSPECIFIED 07/26/2017 NADEEM OROZCO MD Ot N40.0 BENIGN PROSTATIC HYPERPLASIA WITHOUT LOW 07/26/2017 NADEEM OROZCO MD Ot R59.0 LOCALIZED ENLARGED LYMPH NODES 07/26/2017 SUSHANT NOBLE LICENSING ENGINEER Ot C18.7 MALIGNANT NEOPLASM OF SIGMOID COLON 07/26/2017 SUSHANT NOBLE LICENSING ENGINEER Ot C34.32 MALIGNANT NEOPLASM OF LOWER LOBE, LEFT B 07/26/2017 ROCAELCHLOE N Ot C18.7 MALIGNANT NEOPLASM OF SIGMOID COLON 07/26/2017 ROCAELCHLOE N Ot C34.32 MALIGNANT NEOPLASM OF LOWER LOBE, LEFT B 07/26/2017 BAYRON COTEVIPUL N Ot C77.1 SECONDARY AND UNSP MALIGNANT NEOPLASM OF 07/26/2017 ROCAELCHLOE N Ot E83.42 HYPOMAGNESEMIA 07/26/2017 ROCAELCHLOE N Ot E87.6 HYPOKALEMIA 07/26/2017 ROCAEL BAYRONVIPUL N Ot I48.91 UNSPECIFIED ATRIAL FIBRILLATION 07/26/2017 ROCAELCHLOE Ot R97.0 ELEVATED CARCINOEMBRYONIC ANTIGEN [CEA] 07/26/2017 ROCAEL CHLOE N Ot Z79.899 OTHER HALF-WAY (CURRENT) DRUG THERAPY 07/26/2017 ROCAELCHLOE N Ot Z87.891 PERSONAL HISTORY OF NICOTINE DEPENDENCE 07/26/2017 CHLOE COTE N Ot Z92.21 PERSONAL HISTORY OF ANTINEOPLASTIC CHEMO 08/26/2017 SUSHANT NOBLE S LICENSING ENGINEER Ot C18.7 MALIGNANT NEOPLASM OF SIGMOID COLON 08/26/2017 SUSHANT NOBLE LICENSING ENGINEER Ot C34.32 MALIGNANT NEOPLASM OF LOWER LOBE, LEFT B 08/26/2017 CHLOE COTE N Ot C18.9 MALIGNANT NEOPLASM OF COLON, UNSPECIFIED 08/26/2017 CHLOE COTE N Ot C34.90 MALIGNANT NEOPLASM OF UNSP PART OF UNSP 09/06/2017 CHLOE COTE Antonino Ot C18.7 MALIGNANT NEOPLASM OF SIGMOID COLON 09/06/2017 CHLOE COTE N Ot C34.32 MALIGNANT NEOPLASM OF LOWER LOBE, LEFT B 09/06/2017 CHLOE COTE N Ot C77.1 SECONDARY AND UNSP MALIGNANT NEOPLASM OF 09/06/2017 CHLOE COTE N Ot E83.42 HYPOMAGNESEMIA 09/06/2017 CHLOE COTE N Ot E87.6 HYPOKALEMIA 09/06/2017 CHLOE COTE N Ot I48.91 UNSPECIFIED ATRIAL FIBRILLATION 09/06/2017 CHLOE COTE N Ot R97.0 ELEVATED CARCINOEMBRYONIC ANTIGEN [CEA] 09/06/2017 CHLOE COTE N Ot Z79.899 OTHER HALF-WAY (CURRENT) DRUG THERAPY 09/06/2017 CHLOE COTE N Ot Z87.891 PERSONAL HISTORY OF NICOTINE DEPENDENCE 09/06/2017 CHLOE COTE N Ot Z92.21 PERSONAL HISTORY OF ANTINEOPLASTIC CHEMO 10/22/2017 CHLOE COTE N Ot C18.7 MALIGNANT NEOPLASM OF SIGMOID COLON 10/22/2017 CHLOE COTE N Ot C34.32 MALIGNANT NEOPLASM OF LOWER LOBE, LEFT B 10/22/2017 CHLOE COTE N Ot C77.1 SECONDARY AND UNSP MALIGNANT NEOPLASM OF 10/22/2017 CHLOE COTE N Ot E83.42 HYPOMAGNESEMIA 10/22/2017 CHLOE COTE N Ot E87.6 HYPOKALEMIA 10/22/2017 CHLOE COTE N Ot I48.91 UNSPECIFIED ATRIAL FIBRILLATION 10/22/2017 CHLOE OCTE N Ot R97.0 ELEVATED CARCINOEMBRYONIC ANTIGEN [CEA] 10/22/2017 CHLOE COTE N Ot Z79.899 OTHER ELECTRONIC EQUIPMENT REPAIRER (CURRENT) DRUG THERAPY 10/22/2017 CHLOE COTE N Ot Z87.891 PERSONAL HISTORY OF NICOTINE DEPENDENCE 10/22/2017 CHLOE COTE N Ot Z92.21 PERSONAL HISTORY OF ANTINEOPLASTIC CHEMO 10/23/2017 CHLOE COTE N Ot C18.7 MALIGNANT NEOPLASM OF SIGMOID COLON 10/23/2017 CHLOE COTE N Ot C34.32 MALIGNANT NEOPLASM OF LOWER LOBE, LEFT B 10/23/2017 CHLOE COTE N Ot C77.1 SECONDARY AND UNSP MALIGNANT NEOPLASM OF 10/23/2017 CHLOE COTE N Ot E83.42 HYPOMAGNESEMIA 10/23/2017 CHLOE COTE N Ot E87.6 HYPOKALEMIA 10/23/2017 CHLOE COTE N Ot I48.91 UNSPECIFIED ATRIAL FIBRILLATION 10/23/2017 CHLOE COTE N Ot R97.0 ELEVATED CARCINOEMBRYONIC ANTIGEN [CEA] 10/23/2017 CHLOE COTE N Ot Z79.899 OTHER ELECTRONIC EQUIPMENT REPAIRER (CURRENT) DRUG THERAPY 10/23/2017 CHLOE COTE N Ot Z87.891 PERSONAL HISTORY OF NICOTINE DEPENDENCE 10/23/2017 CHLOE COTE N Ot Z92.21 PERSONAL HISTORY OF ANTINEOPLASTIC CHEMO 01/24/2018 CHLOE COTE N Ot C18.7 MALIGNANT NEOPLASM OF SIGMOID COLON 01/24/2018 CHLOE COTE N Ot C34.32 MALIGNANT NEOPLASM OF LOWER LOBE, LEFT B 01/24/2018 CHLOE COTE N Ot C77.1 SECONDARY AND UNSP MALIGNANT NEOPLASM OF 01/24/2018 CHLOE COTE N Ot E83.42 HYPOMAGNESEMIA 01/24/2018 CHLOE COTE N Ot E87.6 HYPOKALEMIA 01/24/2018 CHLOE COTE N Ot I48.91 UNSPECIFIED ATRIAL FIBRILLATION 01/24/2018 CHLOE COTE N Ot R97.0 ELEVATED CARCINOEMBRYONIC ANTIGEN [CEA] 01/24/2018 CHLOE COTE N Ot Z79.899 OTHER ELECTRONIC EQUIPMENT REPAIRER (CURRENT) DRUG THERAPY 01/24/2018 CHLOE COTE N Ot Z87.891 PERSONAL HISTORY OF NICOTINE DEPENDENCE 01/24/2018 CHLOE COTE N Ot Z92.21 PERSONAL HISTORY OF ANTINEOPLASTIC CHEMO 01/24/2018 ROCAEL BAYRONVIPUL N Ot C18.7 MALIGNANT NEOPLASM OF SIGMOID COLON 01/24/2018 ROCAEL BOBVIPUL N Ot C34.32 MALIGNANT NEOPLASM OF LOWER LOBE, LEFT B 01/24/2018 CHLOE COTE N Ot K43.9 VENTRAL HERNIA WITHOUT OBSTRUCTION OR GA 01/24/2018 ROCALE CHLOE N Ot K76.9 LIVER DISEASE, UNSPECIFIED 01/24/2018 CHLOE COTE N Ot C18.7 MALIGNANT NEOPLASM OF SIGMOID COLON 01/24/2018 CHLOE COTE N Ot C34.32 MALIGNANT NEOPLASM OF LOWER LOBE, LEFT B 01/24/2018 CHLOE COTE N Ot K43.9 VENTRAL HERNIA WITHOUT OBSTRUCTION OR GA 01/24/2018 CHLOE COTE N Ot K76.9 LIVER DISEASE, UNSPECIFIED 01/29/2018 CHLOE COTE N Ot C18.7 MALIGNANT NEOPLASM OF SIGMOID COLON 01/29/2018 CHLOE COTE N Ot C34.32 MALIGNANT NEOPLASM OF LOWER LOBE, LEFT B 01/29/2018 ROCAELCHLOE YARBROUGH N Ot K43.9 VENTRAL HERNIA WITHOUT OBSTRUCTION OR GA 01/29/2018 CHLOE COTE N Ot K76.9 LIVER DISEASE, UNSPECIFIED 02/11/2018 CHLOE COTE N Ot C18.7 MALIGNANT NEOPLASM OF SIGMOID COLON 02/11/2018 CHLOE COTE N Ot C34.32 MALIGNANT NEOPLASM OF LOWER LOBE, LEFT B 02/11/2018 CHLOE COTE N Ot C77.1 SECONDARY AND UNSP MALIGNANT NEOPLASM OF 02/11/2018 CHLOE COTE N Ot E83.42 HYPOMAGNESEMIA 02/11/2018 ROCAEL BAYRONVIPUL N Ot E87.6 HYPOKALEMIA 02/11/2018 CHLOE COTE N Ot I48.91 UNSPECIFIED ATRIAL FIBRILLATION 02/11/2018 CHLOE COTE N Ot R97.0 ELEVATED CARCINOEMBRYONIC ANTIGEN [CEA] 02/11/2018 CHLOE COTE N Ot Z79.899 OTHER HALF-WAY (CURRENT) DRUG THERAPY 02/11/2018 CHLOE COTE N Ot Z87.891 PERSONAL HISTORY OF NICOTINE DEPENDENCE 02/11/2018 CHLOE COTE N Ot Z92.21 PERSONAL HISTORY OF ANTINEOPLASTIC CHEMO 03/04/2018 CHLOE COTE N Ot C18.7 MALIGNANT NEOPLASM OF SIGMOID COLON 03/04/2018 CHLOE COTE N Ot C34.32 MALIGNANT NEOPLASM OF LOWER LOBE, LEFT B 03/04/2018 HCLOE COTE N Ot C77.1 SECONDARY AND UNSP MALIGNANT NEOPLASM OF 03/04/2018 BAYRON COTEAN N Ot E83.42 HYPOMAGNESEMIA 03/04/2018 ROCAEL CHLOE N Ot E87.6 HYPOKALEMIA 03/04/2018 CHLOE COTE Ot I48.91 UNSPECIFIED ATRIAL FIBRILLATION 03/04/2018 CHLOE COTE Ot R97.0 ELEVATED CARCINOEMBRYONIC ANTIGEN [CEA] 03/04/2018 CHLOE COTE Ot Z79.899 OTHER ELECTRONIC EQUIPMENT REPAIRER (CURRENT) DRUG THERAPY 03/04/2018 CHLOE COTE Ot Z87.891 PERSONAL HISTORY OF NICOTINE DEPENDENCE 03/04/2018 CHLOE COTE Ot Z92.21 PERSONAL HISTORY OF ANTINEOPLASTIC CHEMO 04/28/2018 NADEEM OROZCO MD Ot 784.2 SWELLING IN HEAD NECK 04/28/2018 NADEEM OROZCO MD, Ot V72.63 PRE-PROCEDURAL LABORATORY EXAMINATION 04/28/2018 NADEEM OROZCO MD, Ot V72.81 [id number] CARDIOVASCULAR 04/28/2018 NADEEM OROZCO MD, Ot V72.83 EXAM PRE-OPERATIVE NEC 04/28/2018 NADEEM OROZCO MD, Ot V74.8 SCREEN-BACTERIAL DIS NEC 04/28/2018 MELISSA MONZON, PATRIZIA Lucero Ot R91.8 OTHER NONSPECIFIC ABNORMAL FINDING OF CHAKA 04/28/2018 PATRIZIA TORRES MD L Ot L02.12 FURUNCLE OF NECK 04/28/2018 SUSHANT NOBLE Ot C34.32 MALIGNANT NEOPLASM OF LOWER LOBE, LEFT B 04/28/2018 SUSHANT NOBLE Ot C77.1 SECONDARY AND UNSP MALIGNANT NEOPLASM OF 04/28/2018 SUSHANT NOBLE Ot Z87.891 PERSONAL HISTORY OF NICOTINE DEPENDENCE 04/28/2018 NADEEM OROZCO MD Ot B37.0 CANDIDAL STOMATITIS 04/28/2018 NADEEM OROZCO MD Ot C18.7 MALIGNANT NEOPLASM OF SIGMOID COLON 04/28/2018 NADEEM OROZCO MD Ot C34.32 MALIGNANT NEOPLASM OF LOWER LOBE, LEFT B 04/28/2018 NADEEM OROZCO MD Ot J18.9 PNEUMONIA, UNSPECIFIED ORGANISM 04/28/2018 SUSHANT NOBLE Ot C18.7 MALIGNANT NEOPLASM OF SIGMOID COLON 04/28/2018 SUSHANT NOBLE Ot C34.32 MALIGNANT NEOPLASM OF LOWER LOBE, LEFT B 04/28/2018 NOBLE, HILAH S LICENSING ENGINEER Ot C34.32 MALIGNANT NEOPLASM OF LOWER LOBE, LEFT B 04/28/2018 SUSHANT NOBLE S LICENSING ENGINEER Ot C18.7 MALIGNANT NEOPLASM OF SIGMOID COLON 04/28/2018 SUSHANT NOBLE S LICENSING ENGINEER Ot C34.32 MALIGNANT NEOPLASM OF LOWER LOBE, LEFT B 04/28/2018 ROCAELCHLOE N Ot C18.7 MALIGNANT NEOPLASM OF SIGMOID COLON 04/28/2018 CHLOE COTE N Ot C34.32 MALIGNANT NEOPLASM OF LOWER LOBE, LEFT B 04/28/2018 PAM MONZON, NADEEM Ot C18.9 MALIGNANT NEOPLASM OF COLON, UNSPECIFIED 04/28/2018 PAM MONZON, LILIKI Ot N40.0 BENIGN PROSTATIC HYPERPLASIA WITHOUT LOW 04/28/2018 PAM MONZON, LILIKI Ot R59.0 LOCALIZED ENLARGED LYMPH NODES 04/28/2018 SUSHANT NOBLE LICENSING ENGINEER Ot C18.7 MALIGNANT NEOPLASM OF SIGMOID COLON 04/28/2018 SUSHANT NOBLE S LICENSING ENGINEER Ot C34.32 MALIGNANT NEOPLASM OF LOWER LOBE, LEFT B 04/28/2018 CHLOE COTE N Ot C18.9 MALIGNANT NEOPLASM OF COLON, UNSPECIFIED 04/28/2018 CHLOE COTE Ot C34.90 MALIGNANT NEOPLASM OF UNSP PART OF UNSP 04/28/2018 CHLOE COTE N Ot C18.7 MALIGNANT NEOPLASM OF SIGMOID COLON 04/28/2018 CHLOE COTE N Ot C34.32 MALIGNANT NEOPLASM OF LOWER LOBE, LEFT B 04/28/2018 [facility]LO[facility] COTE Ot K43.9 VENTRAL HERNIA WITHOUT OBSTRUCTION OR GA 04/28/2018 [facility] C[facility] Ot K76.9 LIVER DISEASE, UNSPECIFIED Procedures Code Description Performed By Performed On [id number] 12/29/2015 [id number] EXCISION OF RECTUM, PERCUTANEOUS ENDOSCO 12/29/2015 [id number] 12/29/2015 [id number] RESECTION OF SIGMOID COLON , PERCUTANEOUS 12/29/2015 [id number] EXCISION OF SMALL INTESTINE, PERC ENDO A 12/11/2016 [id number] EXCISION OF LARGE INTESTINE, PERC ENDO A 12/11/2016 [id number] REPAIR ABDOMINAL WALL, OPEN APPROACH 12/11/2016 Results Test Result Range Complete blood count (CBC) with automated white blood cell (WBC) differential - 12/05/16 12:05 Blood leukocytes automated count (number/volume) 6.3 10*3/uL 4.3-11.0 Blood erythrocytes automated count (number/volume) 4.71 10*6/uL 4.35-5.85 Venous blood hemoglobin measurement (mass/volume) 13.8 g/dL 13.3-17.7 Blood hematocrit (volume fraction) 41 % 40-54 Automated erythrocyte mean corpuscular volume 87 [foz_us] 80-99 Automated erythrocyte mean corpuscular hemoglobin (mass per erythrocyte) 29 pg 25-34 Automated erythrocyte mean corpuscular hemoglobin concentration measurement ( mass/volume) 34 g/dL 32-36 Automated erythrocyte distribution width ratio 15.3 % 10.0-14.5 Automated blood platelet count (count/volume) 150 10*3/uL 130-400 Automated blood platelet mean volume measurement 12.2 [foz_us] 7.4-10.4 Automated blood neutrophils/100 leukocytes 67 % 42-75 Automated blood lymphocytes/100 leukocytes 23 % 12-44 Blood monocytes/100 leukocytes 8 % 0-12 Automated blood eosinophils/100 leukocytes 1 % 0-10 Automated blood basophils/100 leukocytes 1 % 0-10 Blood neutrophils automated count (number/volume) 4.3 10*3 1.8-7.8 Blood lymphocytes automated count (number/volume) 1.5 10*3 1.0-4.0 Blood monocytes automated count (number/volume) 0.5 10*3 0.0-1.0 Automated eosinophil count 0.1 10*3/uL 0.0-0.3 Automated blood basophil count (count/volume) 0.0 10*3/uL 0.0-0.1 [id number] - 12/05/16 12:05 [id number] SPECIMEN AVAILABLE [facility] Comprehensive metabolic panel - 12/05/16 12:05 Serum or plasma sodium measurement (moles/volume) 140 mmol/L 135-145 Serum or plasma potassium measurement (moles/volume) 4.4 mmol/L 3.6-5.0 Serum or plasma chloride measurement (moles/volume) 105 mmol/L 98-107 Carbon dioxide 26 mmol/L 21-32 Serum or plasma anion gap determination (moles/volume) 9 mmol/L 5-14 Serum or plasma urea nitrogen measurement (mass/volume) 10 mg/dL 7-18 Serum or plasma creatinine measurement (mass/volume) 1.02 mg/dL 0.60-1.30 Serum or plasma urea nitrogen/creatinine mass ratio 10 NRG Serum or plasma creatinine measurement with calculation of estimated glomerular filtration rate > NRG Serum or plasma glucose measurement (mass/volume) 97 mg/dL 70-105 Serum or plasma calcium measurement (mass/volume) 8.7 mg/dL 8.5-10.1 Serum or plasma total bilirubin measurement (mass/volume) 0.8 mg/dL 0.1-1.0 Serum or plasma alkaline phosphatase measurement (enzymatic activity/volume) 79 U/L 40-136 Serum or plasma aspartate aminotransferase measurement (enzymatic activity/ volume) 18 U/L 5-34 Serum or plasma alanine aminotransferase measurement (enzymatic activity/volume ) 15 U/L 0-55 Serum or plasma protein measurement (mass/volume) 6.8 g/dL 6.4-8.2 Serum or plasma albumin measurement (mass/volume) 4.0 g/dL 3.2-4.5 CARCINOEMBRYONIC ANTIGEN - 12/05/16 12:05 CEA PATIENT 2.5 % 0.0-5.0 Methicillin resistant Staphylococcus aureus (MRSA) screening culture - 13:07 Methicillin resistant Staphylococcus aureus (MRSA) screening culture NEG [facility] Blood type T Indirect antibody screen panel - 12/11/16 06:56 ABO+Rh group OP [facility] Transfusion band number [id number] [facility] Blood group antibody screen NEGATIVE [facility] Automated blood complete blood count (hemogram) panel - 12/12/16 04:10 Blood leukocytes automated count (number/volume) 9.9 10*3/uL 4.3-11.0 Blood erythrocytes automated count (number/volume) 4.06 10*6/uL 4.35-5.85 Venous blood hemoglobin measurement (mass/volume) 11.7 g/dL 13.3-17.7 Blood hematocrit (volume fraction) 36 % 40-54 Automated erythrocyte mean corpuscular volume 88 [foz_us] 80-99 Automated erythrocyte mean corpuscular hemoglobin (mass per erythrocyte) 29 pg 25-34 Automated erythrocyte mean corpuscular hemoglobin concentration measurement ( mass/volume) 33 g/dL 32-36 Automated erythrocyte distribution width ratio 15.4 % 10.0-14.5 Automated blood platelet count (count/volume) 114 10*3/uL 130-400 Automated blood platelet mean volume measurement 12.8 [foz_us] 7.4-10.4 Whole blood basic metabolic panel - 12/12/16 04:10 Serum or plasma sodium measurement (moles/volume) 136 mmol/L 135-145 Serum or plasma potassium measurement (moles/volume) 4.3 mmol/L 3.6-5.0 Serum or plasma chloride measurement (moles/volume) 103 mmol/L 98-107 Carbon dioxide 24 mmol/L 21-32 Serum or plasma anion gap determination (moles/volume) 9 mmol/L 5-14 Serum or plasma urea nitrogen measurement (mass/volume) 9 mg/dL 7-18 Serum or plasma creatinine measurement (mass/volume) 0.93 mg/dL 0.60-1.30 Serum or plasma urea nitrogen/creatinine mass ratio 10 NRG Serum or plasma creatinine measurement with calculation of estimated glomerular filtration rate > NRG Serum or plasma glucose measurement (mass/volume) 108 mg/dL 70-105 Serum or plasma calcium measurement (mass/volume) 7.8 mg/dL 8.5-10.1 Serum or plasma phosphate measurement (mass/volume) - 12/12/16 04:10 Serum or plasma phosphate measurement (mass/volume) 3.3 mg/dL 2.3-4.7 Magnesium - 12/12/16 04:10 Magnesium 1.9 mg/dL 1.8-2.4 Automated blood complete blood count (hemogram) panel - 12/13/16 05:45 Blood leukocytes automated count (number/volume) 7.0 10*3/uL 4.3-11.0 Blood erythrocytes automated count (number/volume) 3.95 10*6/uL 4.35-5.85 Venous blood hemoglobin measurement (mass/volume) 11.5 g/dL 13.3-17.7 Blood hematocrit (volume fraction) 35 % 40-54 Automated erythrocyte mean corpuscular volume 88 [foz_us] 80-99 Automated erythrocyte mean corpuscular hemoglobin (mass per erythrocyte) 29 pg 25-34 Automated erythrocyte mean corpuscular hemoglobin concentration measurement ( mass/volume) 33 g/dL 32-36 Automated erythrocyte distribution width ratio 16.2 % 10.0-14.5 Automated blood platelet count (count/volume) 102 10*3/uL 130-400 Automated blood platelet mean volume measurement 12.7 [foz_us] 7.4-10.4 Whole blood basic metabolic panel - 12/13/16 05:45 Serum or plasma sodium measurement (moles/volume) 137 mmol/L 135-145 Serum or plasma potassium measurement (moles/volume) 4.0 mmol/L 3.6-5.0 Serum or plasma chloride measurement (moles/volume) 104 mmol/L 98-107 Carbon dioxide 25 mmol/L 21-32 Serum or plasma anion gap determination (moles/volume) 8 mmol/L 5-14 Serum or plasma urea nitrogen measurement (mass/volume) 5 mg/dL 7-18 Serum or plasma creatinine measurement (mass/volume) 0.78 mg/dL 0.60-1.30 Serum or plasma urea nitrogen/creatinine mass ratio 6 NRG Serum or plasma creatinine measurement with calculation of estimated glomerular filtration rate > NRG Serum or plasma glucose measurement (mass/volume) 108 mg/dL 70-105 Serum or plasma calcium measurement (mass/volume) 8.1 mg/dL 8.5-10.1 Complete blood count (CBC) with automated white blood cell (WBC) differential - 12/14/16 05:40 Blood leukocytes automated count (number/volume) 6.9 10*3/uL 4.3-11.0 Blood erythrocytes automated count (number/volume) 3.95 10*6/uL 4.35-5.85 Venous blood hemoglobin measurement (mass/volume) 11.5 g/dL 13.3-17.7 Blood hematocrit (volume fraction) 35 % 40-54 Automated erythrocyte mean corpuscular volume 88 [foz_us] 80-99 Automated erythrocyte mean corpuscular hemoglobin (mass per erythrocyte) 29 pg 25-34 Automated erythrocyte mean corpuscular hemoglobin concentration measurement ( mass/volume) 33 g/dL 32-36 Automated erythrocyte distribution width ratio 15.7 % 10.0-14.5 Automated blood platelet count (count/volume) 107 10*3/uL 130-400 Automated blood platelet mean volume measurement 13.8 [foz_us] 7.4-10.4 Automated blood neutrophils/100 leukocytes 70 % 42-75 Automated blood lymphocytes/100 leukocytes 16 % 12-44 Blood monocytes/100 leukocytes 12 % 0-12 Automated blood eosinophils/100 leukocytes 2 % 0-10 Automated blood basophils/100 leukocytes 0 % 0-10 Blood neutrophils automated count (number/volume) 4.9 10*3 1.8-7.8 Blood lymphocytes automated count (number/volume) 1.1 10*3 1.0-4.0 Blood monocytes automated count (number/volume) 0.8 10*3 0.0-1.0 Automated eosinophil count 0.1 10*3/uL 0.0-0.3 Automated blood basophil count (count/volume) 0.0 10*3/uL 0.0-0.1 Comprehensive metabolic panel - 12/14/16 05:40 Serum or plasma sodium measurement (moles/volume) 135 mmol/L 135-145 Serum or plasma potassium measurement (moles/volume) 4.3 mmol/L 3.6-5.0 Serum or plasma chloride measurement (moles/volume) 103 mmol/L 98-107 Carbon dioxide 22 mmol/L 21-32 Serum or plasma anion gap determination (moles/volume) 10 mmol/L 5-14 Serum or plasma urea nitrogen measurement (mass/volume) 5 mg/dL 7-18 Serum or plasma creatinine measurement (mass/volume) 0.74 mg/dL 0.60-1.30 Serum or plasma urea nitrogen/creatinine mass ratio 7 NRG Serum or plasma creatinine measurement with calculation of estimated glomerular filtration rate > NRG Serum or plasma glucose measurement (mass/volume) 81 mg/dL 70-105 Serum or plasma calcium measurement (mass/volume) 8.4 mg/dL 8.5-10.1 Serum or plasma total bilirubin measurement (mass/volume) 0.8 mg/dL 0.1-1.0 Serum or plasma alkaline phosphatase measurement (enzymatic activity/volume) 65 U/L 40-136 Serum or plasma aspartate aminotransferase measurement (enzymatic activity/ volume) 14 U/L 5-34 Serum or plasma alanine aminotransferase measurement (enzymatic activity/volume ) 8 U/L 0-55 Serum or plasma protein measurement (mass/volume) 6.0 g/dL 6.4-8.2 Serum or plasma albumin measurement (mass/volume) 3.2 g/dL 3.2-4.5 Complete blood count (CBC) with automated white blood cell (WBC) differential - 12/15/16 05:50 Blood leukocytes automated count (number/volume) 5.7 10*3/uL 4.3-11.0 Blood erythrocytes automated count (number/volume) 3.92 10*6/uL 4.35-5.85 Venous blood hemoglobin measurement (mass/volume) 11.5 g/dL 13.3-17.7 Blood hematocrit (volume fraction) 35 % 40-54 Automated erythrocyte mean corpuscular volume 88 [foz_us] 80-99 Automated erythrocyte mean corpuscular hemoglobin (mass per erythrocyte) 29 pg 25-34 Automated erythrocyte mean corpuscular hemoglobin concentration measurement ( mass/volume) 33 g/dL 32-36 Automated erythrocyte distribution width ratio 15.4 % 10.0-14.5 Automated blood platelet count (count/volume) 115 10*3/uL 130-400 Automated blood platelet mean volume measurement 12.6 [foz_us] 7.4-10.4 Automated blood neutrophils/100 leukocytes 71 % 42-75 Automated blood lymphocytes/100 leukocytes 16 % 12-44 Blood monocytes/100 leukocytes 11 % 0-12 Automated blood eosinophils/100 leukocytes 1 % 0-10 Automated blood basophils/100 leukocytes 1 % 0-10 Blood neutrophils automated count (number/volume) 4.0 10*3 1.8-7.8 Blood lymphocytes automated count (number/volume) 0.9 10*3 1.0-4.0 Blood monocytes automated count (number/volume) 0.6 10*3 0.0-1.0 Automated eosinophil count 0.1 10*3/uL 0.0-0.3 Automated blood basophil count (count/volume) 0.0 10*3/uL 0.0-0.1 Comprehensive metabolic panel - 12/15/16 05:50 Serum or plasma sodium measurement (moles/volume) 135 mmol/L 135-145 Serum or plasma potassium measurement (moles/volume) 4.5 mmol/L 3.6-5.0 Serum or plasma chloride measurement (moles/volume) 104 mmol/L 98-107 Carbon dioxide 17 mmol/L 21-32 Serum or plasma anion gap determination (moles/volume) 14 mmol/L 5-14 Serum or plasma urea nitrogen measurement (mass/volume) 8 mg/dL 7-18 Serum or plasma creatinine measurement (mass/volume) 0.78 mg/dL 0.60-1.30 Serum or plasma urea nitrogen/creatinine mass ratio 10 NRG Serum or plasma creatinine measurement with calculation of estimated glomerular filtration rate > NRG Serum or plasma glucose measurement (mass/volume) 60 mg/dL 70-105 Serum or plasma calcium measurement (mass/volume) 8.5 mg/dL 8.5-10.1 Serum or plasma total bilirubin measurement (mass/volume) 0.8 mg/dL 0.1-1.0 Serum or plasma alkaline phosphatase measurement (enzymatic activity/volume) 67 U/L 40-136 Serum or plasma aspartate aminotransferase measurement (enzymatic activity/ volume) 17 U/L 5-34 Serum or plasma alanine aminotransferase measurement (enzymatic activity/volume ) 11 U/L 0-55 Serum or plasma protein measurement (mass/volume) 6.1 g/dL 6.4-8.2 Serum or plasma albumin measurement (mass/volume) 3.4 g/dL 3.2-4.5 Encounters ACCT No. Visit Date/Time Discharge Status Pt. Type Provider Facility Loc./Unit Complaint [id number] 05/01/2018 08:55:00 05/01/2018 23:59:59 CLS Outpatient CHLOE COTE [facility] ONC [id number] 01/27/2018 09:38:00 02/11/2018 00:01:00 DIS Outpatient CHLOE COTE [facility] ONC [id number] 01/23/2018 10:58:00 01/23/2018 23:59:59 CLS Outpatient CHLOE COTE [facility] CARD LUNG CANCER,COLON CANCER [id number] 10/22/2017 09:06:00 10/22/2017 00:01:00 DIS Outpatient CHLOE COTE [facility] ONC [id number] 07/29/2017 11:29:00 07/29/2017 23:59:59 CLS Outpatient CHLOE COTE [facility] RAD ABN PET SCAN OF HD [id number] 07/23/2017 10:37:00 07/23/2017 23:59:59 CLS Outpatient SUSHANT NOBLE [facility] RAD LUNG CA C34.32 [id number] 04/11/2017 10:43:00 04/13/2017 00:01:00 DIS Outpatient CHLOE COTE [facility] ONC [id number] 01/21/2017 10:37:00 01/21/2017 23:59:59 CLS Outpatient CHLOE COTE [facility] CARD LUNG/COLON CANCER [id number] 01/10/2017 12:46:00 01/16/2017 00:01:00 DIS Outpatient CHLOE COTE [facility] ONC [id number] 12/11/2016 06:27:00 12/16/2016 13:15:00 DIS Inpatient NADEEM OROZCO MD [facility] 4TH COLON MASS [id number] 12/07/2016 12:54:00 12/07/2016 13:10:00 DIS Outpatient NADEEM OROZCO MD [facility] PREOP COLON MASS [id number] 12/06/2016 08:00:00 12/06/2016 23:59:59 CLS Outpatient NADEEM OROZCO MD [facility] RAD RECURRENT COLON CA [id number] 12/05/2016 08:00:00 12/05/2016 13:15:00 DIS Outpatient NADEEM OROZCO MD [facility] ENDO HX COLON CA [id number] 12/03/2016 05:33:00 12/03/2016 11:56:00 DIS Outpatient NADEEM OROZCO MD [facility] PREOP HX COLON CA [id number] 10/10/2016 09:21:00 10/17/2016 00:01:00 DIS Outpatient CHLOE COTE [facility] ONC [id number] 10/10/2016 10:27:00 10/10/2016 23:59:59 CLS Outpatient SUSHANT NOBLE [facility] RAD LUNG CANCER,COLON CANCER [id number] 07/10/2016 08:53:00 07/15/2016 00:01:00 DIS Outpatient CHLOE COTE [facility] ONC [id number] 07/10/2016 10:48:00 07/10/2016 23:59:59 CLS Outpatient SUSHANT NOBLE [facility] CARD LUNG CANCER [id number] 04/09/2016 08:48:00 04/16/2016 08:53:00 DIS Outpatient CHLOE COTE [facility] ONC [id number] 03/20/2016 11:46:00 03/20/2016 23:59:59 CLS Outpatient DIVINA NOBLEVLAD Brie GONZALES [facility] RAD LUNG CANCER [id number] 03/05/2016 13:28:00 03/05/2016 23:59:59 CLS Outpatient NOBLE SUSHANT Baird LICENSING ENGINEER [facility] ONC [id number] 01/31/2016 14:25:00 02/23/2016 00:01:00 DIS Outpatient CHLOE COTE [facility] ONC [id number] 01/20/2016 10:24:00 01/20/2016 15:44:00 DIS Emergency MEGAN JAIN MD [facility] ER RAPID HEART RATE [id number] 01/19/2016 14:55:00 01/19/2016 23:59:59 CLS Outpatient NADEEM OROZCO MD [facility] RAD HISTORY PNEUMONIA [id number] 01/18/2016 09:41:00 01/18/2016 23:59:59 CLS Outpatient NADEEM OROZCO MD [facility] HH COLON CANCER, LUNG CANCER , THRUSH [id number] 01/06/2016 13:07:00 01/13/2016 12:08:00 DIS Inpatient FABY HAQUE MD [facility] 4TH SWB [id number] 12/29/2015 09:45:00 01/06/2016 12:44:00 DIS Inpatient NADEEM OROZCO MD [facility] 4TH COLON CANCER [id number] 12/27/2015 08:21:00 01/02/2016 12:00:00 DIS Outpatient MICHAEL QUACH MD [facility] WOUNDCARE [id number] 12/27/2015 11:57:00 12/27/2015 12:30:00 DIS Outpatient NADEEM OROZCO MD [facility] PREOP COLON CANCER [id number] 12/16/2015 10:55:00 12/16/2015 14:00:00 DIS Outpatient NADEEM OROZCO MD [facility] SDC SCREENING [id number] 12/13/2015 05:34:00 12/13/2015 09:11:00 DIS Outpatient NADEEM OROZCO MD [facility] PREOP SCREENING [id number] 12/08/2015 10:21:00 12/08/2015 23:59:59 CLS Outpatient SUSHANT NOBLE [facility] ONC [id number] 11/06/2015 18:30:00 11/06/2015 23:59:59 CLS Outpatient PATRIZIA TORRES MD [facility] HH ABSCESS OF OLD EPIDURAL SITE [id number] 09/27/2015 08:03:00 09/27/2015 23:59:59 CLS Outpatient PATRIZIA TORRES MD [facility] RAD LUMG MASS TABACCOISM [id number] 09/07/2015 15:45:00 09/07/2015 17:20:00 DIS Emergency ROQUE DO, KAT L [facility] ER BLOOD IN URINE [id number] 01/29/2013 08:25:00 01/29/2013 14:20:00 DIS [facility] [id number] 01/26/2013 08:09:00 01/26/2013 23:59:59 CLS Outpatient NADEEM OROZCO MD [facility] PREOP UPPER NECK MASS [id number] 07/24/2018 12:00:00 PEN Preadmit SUSHANT NOBLE [facility] CARD COLON CANCER,LUNG CANCER [id number] 05/24/2011 21:30:00 Document Registration
== END 2018-05-28 15:00 | disposition home or self-care (01) ==
LOC: EDUNIT# 12:12 → ER 12:13
DX: N39.0 Urinary tract infection, site not specified (principal); I48.91 Unspecified atrial fibrillation; Z85.038 Personal history of other malignant neoplasm of large intestine; Z85.118 Personal history of other malignant neoplasm of bronchus and lung; Z87.442 Personal history of urinary calculi; Z88.0 Allergy status to penicillin; Z91.040 Latex allergy status; Z80.0 Family history of malignant neoplasm of digestive organs; Z82.49 Family history of ischemic heart disease and other diseases of the circulatory system; Z87.891 Personal history of nicotine dependence; Z98.890 Other specified postprocedural states; Z90.49 Acquired absence of other specified parts of digestive tract; Z90.2 Acquired absence of lung [part of]
CPT/HCPCS: 36415; 74176; 80053; 81000; 85025; 87088

== ENCOUNTER 2018-07-23 09:18 | Outpatient (RCR) | payer MEDICARE, OTHER ==
[2018-04-28 09:23] LABS: BASOPHILS % (AUTO) 1 % (0-10); EOSINOPHILS # (AUTO) 0.1 10^3/uL (0.0-0.3); EOSINOPHILS % (AUTO) 2 % (0-10); HEMATOCRIT 42 % (40-54); HEMOGLOBIN 15.2 G/DL (13.3-17.7); LYMPHOCYTES # (AUTO) 1.9 X 10^3 (1.0-4.0); LYMPHOCYTES % (AUTO) 25 % (12-44); MEAN CORPUSCULAR HEMOGLOBIN 32 PG (25-34); MEAN CORPUSCULAR HGB CONC 37 G/DL (32-36); MEAN CORPUSCULAR VOLUME 88 FL (80-99); MEAN PLATELET VOLUME 11.6 FL (7.4-10.4); MONOCYTES # (AUTO) 0.7 X 10^3 (0.0-1.0); MONOCYTES % (AUTO) 9 % (0-12); NEUTROPHILS # (AUTO) 4.7 X 10^3 (1.8-7.8); NEUTROPHILS % (AUTO) 63 % (42-75); PLATELET COUNT 146 10^3/uL (130-400); RED BLOOD COUNT 4.73 10^6/uL (4.35-5.85); RED CELL DISTRIBUTION WIDTH 13.4 % (10.0-14.5); WHITE BLOOD COUNT 7.4 10^3/uL (4.3-11.0)
[2018-04-28 09:44] LABS: ALANINE AMINOTRANSFERASE 30 U/L (0-55); ALBUMIN 4.3 GM/DL (3.2-4.5); ALKALINE PHOSPHATASE 91 U/L (40-136); BILIRUBIN,TOTAL 0.9 MG/DL (0.1-1.0); BUN/CREATININE RATIO 10; CALCIUM 9.1 MG/DL (8.5-10.1); CARBON DIOXIDE 22 MMOL/L (21-32); CHLORIDE 105 MMOL/L (98-107); CREATININE SERUM 0.98 MG/DL (0.60-1.30); GFR ESTIMATED > 60; GLUCOSE 102 MG/DL (70-105); POTASSIUM 3.8 MMOL/L (3.6-5.0); SODIUM 139 MMOL/L (135-145); TOTAL PROTEIN 7.3 GM/DL (6.4-8.2)
[~2018-07-23 09:18] MED LIST changes: +CEPH500T PO
[2018-07-23 09:42] LABS: BASOPHILS # (AUTO) 0.1 10^3/uL (0.0-0.1); BASOPHILS % (AUTO) 1 % (0-10); EOSINOPHILS # (AUTO) 0.1 10^3/uL (0.0-0.3); EOSINOPHILS % (AUTO) 1 % (0-10); HEMATOCRIT 43 % (40-54); HEMOGLOBIN 14.6 G/DL (13.3-17.7); LYMPHOCYTES # (AUTO) 1.5 X 10^3 (1.0-4.0); LYMPHOCYTES % (AUTO) 21 % (12-44); MEAN CORPUSCULAR HEMOGLOBIN 31 PG (25-34); MEAN CORPUSCULAR HGB CONC 34 G/DL (32-36); MEAN CORPUSCULAR VOLUME 91 FL (80-99); MEAN PLATELET VOLUME 12.1 FL (7.4-10.4); MONOCYTES # (AUTO) 0.6 X 10^3 (0.0-1.0); MONOCYTES % (AUTO) 9 % (0-12); NEUTROPHILS # (AUTO) 4.9 X 10^3 (1.8-7.8); NEUTROPHILS % (AUTO) 68 % (42-75); PLATELET COUNT 159 10^3/uL (130-400); RED BLOOD COUNT 4.76 10^6/uL (4.35-5.85); RED CELL DISTRIBUTION WIDTH 13.6 % (10.0-14.5); WHITE BLOOD COUNT 7.2 10^3/uL (4.3-11.0)
[2018-07-23 10:03] LABS: ALANINE AMINOTRANSFERASE 27 U/L (0-55); ALBUMIN 4.3 GM/DL (3.2-4.5); ALKALINE PHOSPHATASE 98 U/L (40-136); BILIRUBIN,TOTAL 0.7 MG/DL (0.1-1.0); BUN/CREATININE RATIO 10; CARBON DIOXIDE 26 MMOL/L (21-32); CHLORIDE 103 MMOL/L (98-107); CREATININE SERUM 1.05 MG/DL (0.60-1.30); GFR ESTIMATED > 60; GLUCOSE 108 MG/DL (70-105); POTASSIUM 3.9 MMOL/L (3.6-5.0); SODIUM 139 MMOL/L (135-145); TOTAL PROTEIN 7.7 GM/DL (6.4-8.2)
== END 2018-07-27 | disposition home or self-care (01) ==
LOC: ONC 09:18
PROVIDERS: ATTEND Internal Medicine Hematology & Oncology
DX: C34.32 Malignant neoplasm of lower lobe, left bronchus or lung (principal); C18.7 Malignant neoplasm of sigmoid colon; C77.1 Secondary and unspecified malignant neoplasm of intrathoracic lymph nodes; R97.0 Elevated carcinoembryonic antigen [CEA]; I48.91 Unspecified atrial fibrillation; E87.6 Hypokalemia; E83.42 Hypomagnesemia; Z87.891 Personal history of nicotine dependence; Z92.21 Personal history of antineoplastic chemotherapy; Z79.899 Other long term (current) drug therapy; Z23 Encounter for immunization
CPT/HCPCS: 36415; 80053; 82378; 85025; 90471; 90686; 99213

== ENCOUNTER → 2018-07-24 | Outpatient (CLI) | payer MEDICARE, OTHER ==
[~2018-07-24] MED LIST changes: +BARIUM SUSPENSION 2.1% (VANILLA SILQ) 450 ML PO ONE; +CATHETER FLUSH 10 ML SYR IV PRN; +IOHEXOL 350 MG/ML 100 ML (OMNIPAQUE 350) VIAL IV ONE; +NS 250 ML (IVPB) BAG IV ONE; +RECEIVED CONTRAST (Hold Metformin) IV SCH
--- NOTE | 2018-07-24 12:51 | Diagnostic Imaging Report ---
PROCEDURE: CT chest with contrast, CT abdomen and pelvis with and without contrast. TECHNIQUE: Pre and post intravenous contrast axial imaging of the abdomen and pelvis and post contrast axial imaging of the chest were performed. INDICATION: History of colon carcinoma and lung carcinoma. Comparison is made with prior CT chest from 01/23/[address] abdomen and pelvis study from 05/28/2018. CT CHEST: The axillae remain unremarkable. Small lymph nodes in the mediastinum appear stable. Shannan appear stable. Small amount of fluid along the medial aspect on the left of the upper mediastinum is stable. There is no significant pericardial or pleural fluid identified. The lungs remain clear. No infiltrates or masses are seen. IMPRESSION: Stable CT chest since study from 01/23/2018. No thoracic lymphadenopathy or evidence of pulmonary metastatic disease is identified. CT ABDOMEN AND PELVIS: Previously noted subtle low-density lesions in the right lobe of the liver are again noted. The larger lesion measures approximately 19 mm compared to 17 mm. Lesion slightly more cephalad and posteriorly in the right lobe is stable at 11 mm. No new liver mass is seen. Gallbladder is unremarkable. Pancreas and spleen are unremarkable. Adrenal glands are unremarkable. Kidneys appear stable. Cystic lesions in the subcutaneous tissues in the right flank appears stable. The aorta is non-aneurysmal. No central retroperitoneal lymphadenopathy is seen. The abdominal wall hernia to the left and lateral of the left rectus muscle is again noted containing multiple bowel loops. No bowel obstruction is seen. There is no ascites. Prostate is enlarged. The bladder is decompressed. No definite abdominal or pelvic lymphadenopathy is seen. IMPRESSION: Overall stable CT abdomen and pelvis when compared with prior examination from 01/23/2018 and 05/28/2018. Vague liver lesions in the right lobe are again noted, which appear to be very similar in size of prior examinations. No new abnormality or evidence of abdominal or pelvic lymphadenopathy is seen. Dictated by: Dictated on workstation # [id number]
--- NOTE | 2018-07-24 15:35 | Diagnostic Imaging Report ---
INDICATION: Colon cancer and lung cancer. TECHNIQUE: Patient was administered 26.8 mCi technetium 99m MDP intravenously and whole body imaging was performed after three-hour delay. COMPARISON: Correlation is made with prior whole body bone scan from 01/23/2018. FINDINGS: Normal uptake of activity by the axial and appendicular skeleton is seen. There is uptake by the kidneys with excretion into the urinary bladder. No abnormal foci of tracer accumulation are seen to suggest osseous metastatic disease. IMPRESSION: No scintigraphic evidence of osseous metastatic disease. Dictated by: Dictated on workstation # [id number]
== END ==
LOC: CARD 11:34
PROVIDERS: ATTEND Nurse Practitioner Adult Health
DX: C18.7 Malignant neoplasm of sigmoid colon (principal); C34.32 Malignant neoplasm of lower lobe, left bronchus or lung
CPT/HCPCS: 71260; 74178; 78306

== ENCOUNTER → 2018-10-29 | Outpatient (RCR) | payer MEDICARE, OTHER ==
[~2018-10-29] MED LIST changes: -BARIUM SUSPENSION 2.1% (VANILLA SILQ) 450 ML PO ONE; -CATHETER FLUSH 10 ML SYR IV PRN; -IOHEXOL 350 MG/ML 100 ML (OMNIPAQUE 350) VIAL IV ONE; -NS 250 ML (IVPB) BAG IV ONE; -RECEIVED CONTRAST (Hold Metformin) IV SCH
[2018-10-29 09:03] LABS: BASOPHILS % (AUTO) 0 % (0-10); EOSINOPHILS # (AUTO) 0.1 10^3/uL (0.0-0.3); EOSINOPHILS % (AUTO) 2 % (0-10); HEMATOCRIT 42 % (40-54); HEMOGLOBIN 14.6 G/DL (13.3-17.7); LYMPHOCYTES # (AUTO) 1.7 X 10^3 (1.0-4.0); LYMPHOCYTES % (AUTO) 24 % (12-44); MEAN CORPUSCULAR HEMOGLOBIN 31 PG (25-34); MEAN CORPUSCULAR HGB CONC 34 G/DL (32-36); MEAN CORPUSCULAR VOLUME 91 FL (80-99); MEAN PLATELET VOLUME 11.6 FL (7.4-10.4); MONOCYTES # (AUTO) 0.6 X 10^3 (0.0-1.0); MONOCYTES % (AUTO) 9 % (0-12); NEUTROPHILS # (AUTO) 4.8 X 10^3 (1.8-7.8); NEUTROPHILS % (AUTO) 66 % (42-75); PLATELET COUNT 161 10^3/uL (130-400); RED CELL DISTRIBUTION WIDTH 13.8 % (10.0-14.5); WHITE BLOOD COUNT 7.3 10^3/uL (4.3-11.0)
[2018-10-29 09:25] LABS: ALBUMIN 4.1 GM/DL (3.2-4.5); BILIRUBIN,TOTAL 0.7 MG/DL (0.1-1.0); CREATININE SERUM 1.18 MG/DL (0.60-1.30); POTASSIUM 3.7 MMOL/L (3.6-5.0); TOTAL PROTEIN 7.1 GM/DL (6.4-8.2)
== END | disposition home or self-care (01) ==
LOC: ONC 07-31 08:56
PROVIDERS: ATTEND Internal Medicine Hematology & Oncology
DX: C34.32 Malignant neoplasm of lower lobe, left bronchus or lung (principal); C18.7 Malignant neoplasm of sigmoid colon; C77.1 Secondary and unspecified malignant neoplasm of intrathoracic lymph nodes; R97.0 Elevated carcinoembryonic antigen [CEA]; I48.91 Unspecified atrial fibrillation; E87.6 Hypokalemia; E83.42 Hypomagnesemia; Z87.891 Personal history of nicotine dependence; Z92.21 Personal history of antineoplastic chemotherapy; Z79.899 Other long term (current) drug therapy; Z23 Encounter for immunization
CPT/HCPCS: 36415; 80053; 82378; 85025; 99213

== ENCOUNTER → 2018-12-03 | Outpatient (CLI) | payer MEDICARE, OTHER ==
--- NOTE | 2018-12-03 15:22 | Diagnostic Imaging Report ---
PROCEDURE: CT abdomen and pelvis without contrast. TECHNIQUE: Multiple contiguous axial images were obtained through the abdomen and pelvis without the use of intravenous contrast. Auto Exposure Controls were utilized during the CT exam to meet ALARA standards for radiation dose reduction. INDICATION: Hematuria. COMPARISON: Comparison is made with prior CT from 07/24/2018. FINDINGS: The lung bases are clear. Vague right lobe liver lesion previously described appears stable. No additional liver lesion is detected. Gallbladder contains a small stone. There is no biliary ductal dilatation. The pancreas and spleen are unremarkable. No adrenal mass is detected. No renal calculi or hydronephrosis is detected. No definite ureteral or bladder calculi are seen. Bladder is decompressed. Aorta is heavily calcified but nonaneurysmal. Bowel loops are normal caliber. Left spigelian hernia containing numerous bowel loops is again seen. No definite strangulation or obstruction is seen. There is no free fluid or fluid collection. There are post-surgical changes at the rectosigmoid junction. The prostate is enlarged. Bony structures are not acute. Low-density collections in the subcutaneous fat in the right flank appears stable. IMPRESSION: 1. Overall stable CT of the abdomen and pelvis without contrast when compared with prior study from 07/24/2018. No urinary tract calculi or obstruction is identified. Dictated by: Dictated on workstation # [id number]
== END ==
LOC: RAD 14:51
PROVIDERS: ATTEND Urology
DX: R31.9 Hematuria, unspecified (principal)
CPT/HCPCS: 74176

== ENCOUNTER → 2019-04-29 | Outpatient (CLI) | payer MEDICARE, OTHER ==
[~2019-04-29] MED LIST changes: +FLU QUADRIvalent (5+ YOA) 2019-2020 (Cancer Ctr) 0.5 ML IM ONE
[2019-04-29 09:01] LABS: BASOPHILS % (AUTO) 0 % (0-10); EOSINOPHILS # (AUTO) 0.1 10^3/uL (0.0-0.3); EOSINOPHILS % (AUTO) 1 % (0-10); HEMATOCRIT 43 % (40-54); HEMOGLOBIN 14.5 G/DL (13.3-17.7); LYMPHOCYTES # (AUTO) 1.7 X 10^3 (1.0-4.0); LYMPHOCYTES % (AUTO) 18 % (12-44); MEAN CORPUSCULAR HEMOGLOBIN 30 PG (25-34); MEAN CORPUSCULAR HGB CONC 33 G/DL (32-36); MEAN CORPUSCULAR VOLUME 91 FL (80-99); MEAN PLATELET VOLUME 11.9 FL (7.4-10.4); MONOCYTES # (AUTO) 0.8 X 10^3 (0.0-1.0); MONOCYTES % (AUTO) 8 % (0-12); NEUTROPHILS # (AUTO) 6.9 X 10^3 (1.8-7.8); NEUTROPHILS % (AUTO) 73 % (42-75); PLATELET COUNT 142 10^3/uL (130-400); RED CELL DISTRIBUTION WIDTH 13.9 % (10.0-14.5); WHITE BLOOD COUNT 9.4 10^3/uL (4.3-11.0)
[2019-04-29 09:20] LABS: ALANINE AMINOTRANSFERASE 21 U/L (0-55); ALBUMIN 4.1 GM/DL (3.2-4.5); ALKALINE PHOSPHATASE 92 U/L (40-136); BILIRUBIN,TOTAL 0.8 MG/DL (0.1-1.0); BUN/CREATININE RATIO 9; CALCIUM 8.9 MG/DL (8.5-10.1); CARBON DIOXIDE 25 MMOL/L (21-32); CHLORIDE 103 MMOL/L (98-107); CREATININE SERUM 1.03 MG/DL (0.60-1.30); GFR ESTIMATED > 60; GLUCOSE 109 MG/DL (70-105); POTASSIUM 3.6 MMOL/L (3.6-5.0); SODIUM 140 MMOL/L (135-145); TOTAL PROTEIN 7.3 GM/DL (6.4-8.2)
== END ==
LOC: EDSTATUS 10-30 14:26 → ONC 08:41
PROVIDERS: ATTEND Internal Medicine Hematology & Oncology
DX: C18.7 Malignant neoplasm of sigmoid colon (principal); Z23 Encounter for immunization
CPT/HCPCS: 36415; 80053; 82378; 85025; 90471; 99213

== ENCOUNTER → 2019-06-15 | Outpatient (CLI) | payer MEDICARE, OTHER ==
[~2019-06-15] MED LIST changes: -FLU QUADRIvalent (5+ YOA) 2019-2020 (Cancer Ctr) 0.5 ML IM ONE
== END ==
LOC: ONC 09:33
PROVIDERS: ATTEND Internal Medicine Hematology & Oncology
DX: C18.9 Malignant neoplasm of colon, unspecified (principal)
CPT/HCPCS: 36415; 82378

== ENCOUNTER → 2019-08-06 | Outpatient (CLI) | payer MEDICARE, OTHER ==
[~2019-08-06] MED LIST changes: -ALFU10TA11 PO; +ALFU10TA12 PO
== END ==
LOC: WOUNDCARE 12:14
PROVIDERS: ATTEND Orthopaedic Surgery Hand Surgery
DX: I96 Gangrene, not elsewhere classified (principal); S61.002A Unspecified open wound of left thumb without damage to nail, initial encounter; L03.012 Cellulitis of left finger; L30.9 Dermatitis, unspecified
CPT/HCPCS: 97597

== ENCOUNTER → 2019-08-13 | Outpatient (CLI) | payer MEDICARE, OTHER | LOC: WOUNDCARE 08:07 | PROVIDERS: ATTEND Orthopaedic Surgery Hand Surgery | DX: S61.002A Unspecified open wound of left thumb without damage to nail, initial encounter (principal); L03.012 Cellulitis of left finger; L30.9 Dermatitis, unspecified | CPT/HCPCS: 99213 ==

== ENCOUNTER → 2019-08-20 | Outpatient (CLI) | payer MEDICARE, OTHER | LOC: WOUNDCARE 08:07 | PROVIDERS: ATTEND Orthopaedic Surgery Hand Surgery | DX: S61.002A Unspecified open wound of left thumb without damage to nail, initial encounter (principal); L03.012 Cellulitis of left finger; L30.9 Dermatitis, unspecified | CPT/HCPCS: 99212 ==

== ENCOUNTER → 2019-10-26 | Outpatient (CLI) | payer MEDICARE, OTHER ==
--- NOTE | 2019-10-26 10:58 | Diagnostic Imaging Report ---
PROCEDURE: CT chest without contrast. TECHNIQUE: Multiple contiguous axial images were obtained through the chest without the use of intravenous contrast. Auto Exposure Controls were utilized during the CT exam to meet ALARA standards for radiation dose reduction. INDICATION: Lung cancer. Comparison made with prior examination 07/24/2018 FINDINGS: There is very minimal scarring in the lung bases. There are no new pulmonary nodules, masses or infiltrates. There is coronary artery disease. The ascending aorta measures up to 4.5 cm. There is no pathologically enlarged adenopathy in the chest. There is no pneumothorax. There are degenerative changes in the spine. There is cholelithiasis. Remainder of the intra-abdominal structures are unremarkable. IMPRESSION: No evidence of residual recurrent mass in the chest. Enlargement of the ascending aorta up to 4.5 cm. Coronary artery calcification. Cholelithiasis. Dictated by: Dictated on workstation # [id number]
== END ==
LOC: RAD 10:15
PROVIDERS: ATTEND Internal Medicine Hematology & Oncology
DX: C34.32 Malignant neoplasm of lower lobe, left bronchus or lung (principal); I25.10 Atherosclerotic heart disease of native coronary artery without angina pectoris; K80.20 Calculus of gallbladder without cholecystitis without obstruction
CPT/HCPCS: 71250

== ENCOUNTER 2019-11-25 09:24 | Outpatient (RCR) | payer MEDICARE, OTHER ==
[2019-11-25 10:01] LABS: BASOPHILS % (AUTO) 1 % (0-10); EOSINOPHILS # (AUTO) 0.1 10^3/uL (0.0-0.3); EOSINOPHILS % (AUTO) 2 % (0-10); HEMATOCRIT 44 % (40-54); LYMPHOCYTES # (AUTO) 1.6 X 10^3 (1.0-4.0); LYMPHOCYTES % (AUTO) 21 % (12-44); MEAN CORPUSCULAR HEMOGLOBIN 31 PG (25-34); MEAN CORPUSCULAR HGB CONC 34 G/DL (32-36); MEAN CORPUSCULAR VOLUME 91 FL (80-99); MEAN PLATELET VOLUME 11.9 FL (7.4-10.4); MONOCYTES # (AUTO) 0.6 X 10^3 (0.0-1.0); MONOCYTES % (AUTO) 8 % (0-12); NEUTROPHILS # (AUTO) 4.9 X 10^3 (1.8-7.8); NEUTROPHILS % (AUTO) 68 % (42-75); PLATELET COUNT 156 10^3/uL (130-400); RED CELL DISTRIBUTION WIDTH 13.5 % (10.0-14.5); WHITE BLOOD COUNT 7.2 10^3/uL (4.3-11.0)
[2019-11-25 10:18] LABS: ALANINE AMINOTRANSFERASE 21 U/L (0-55); ALKALINE PHOSPHATASE 95 U/L (40-136); BILIRUBIN,TOTAL 0.5 MG/DL (0.1-1.0); BUN/CREATININE RATIO 9; CALCIUM 8.7 MG/DL (8.5-10.1); CARBON DIOXIDE 26 MMOL/L (21-32); CHLORIDE 104 MMOL/L (98-107); CREATININE SERUM 0.92 MG/DL (0.60-1.30); GFR ESTIMATED > 60; GLUCOSE 102 MG/DL (70-105); POTASSIUM 4.1 MMOL/L (3.6-5.0); SODIUM 139 MMOL/L (135-145); TOTAL PROTEIN 7.1 GM/DL (6.4-8.2)
[2020-01-06] MEDS ORDERED: TMSL.4C PO (10:23)
[2020-01-06] MEDS ORDERED: FINA5TAB6 PO (10:23)
== END 2020-02-23 | disposition home or self-care (01) ==
LOC: ONC 09:24
PROVIDERS: ATTEND Internal Medicine Hematology & Oncology
DX: Z85.118 Personal history of other malignant neoplasm of bronchus and lung (principal); Z85.038 Personal history of other malignant neoplasm of large intestine
CPT/HCPCS: 80053; 82378; 85025; G0463; 99213

== ENCOUNTER 2020-01-11 05:30 | Outpatient (RCR) | payer MEDICARE, OTHER ==
[~2020-01-11] VITALS: Ht 180 cm; Wt 92.7 kg
[~2020-01-11 05:30] MED LIST changes: +FINA5TAB6 PO; +TMSL.4C PO
== END 2020-01-11 09:49 | disposition home or self-care (01) ==
LOC: PREOP 05:30
PROVIDERS: ATTEND Surgery
DX: Z01.812 Encounter for preprocedural laboratory examination (principal); Z20.828 Contact with and (suspected) exposure to other viral communicable diseases; Z85.038 Personal history of other malignant neoplasm of large intestine
CPT/HCPCS: 87635

== ENCOUNTER 2020-01-13 10:57 | Day surgery (SDC) | payer MEDICARE, OTHER ==
[2020-01-13] VITALS (13 sets, daily range): BP systolic 116–155; BP diastolic 61–78
[~2020-01-13] VITALS: Ht 180 cm; Wt 92.7 kg
[2020-01-13] MEDS ORDERED: NS IV 500 ML 500 ML ONE (10:58)
[2020-01-13] MEDS ORDERED: NS IV 500 ML 500 ML IV PRN (11:05)
[2020-01-13] MEDS ORDERED: LIDOCAINE JELLY 2% 6 ML SYRINGE MM PRN (11:15)
[2020-01-13] MEDS ORDERED: fentaNYL INJECTION 100 MCG/2 ML AMP IVP ONE (11:15)
--- NOTE | 2020-01-13 11:20 | Conscious Sedation/ASA ---
Conscious Sedation Pre-Proced Time 11:15 ASA Score 2 For ASA 3 and 4: Consider anesthesia and medical clearance. Also, for patients with a history of failed moderate sedation consider anesthesia. Airway Lungs Heart ASA score ASA 1: a normal healthy patient ASA 2: a patient with a mild systemic disease (mid diabetes, controlled hypertension, obesity ASA 3: a patient with a severe systemic disease that limits activity (angina, COPD, prior Myocardial infarction) ASA 4: a patient with an incapacitating disease that is a constant threat to life (CHF, renal failure) ASA 5: a moribund patient not expected to survive 24 hrs. (ruptured aneurysm) ASA 6: a declared brain- patient whose organs are being harvested. For emergent operations, add the letter E after the classification Mallampati Classification Grade 2 Sedation Plan Analgesia, Amnesia, Plan communicated to team members, Discussed options with patient/fam, Discussed risks with patient/fam The patient is an appropriate candidate to undergo the planned procedure, sedation, and anesthesia. The patient immediately re-assessed prior to indication. NADEEM OROZCO MD Jan 13, 2020 11:20
--- NOTE | 2020-01-13 11:21 | Progress Note-Pre Operative ---
Pre-Operative Progress Note H&P Reviewed The H&P was reviewed, patient examined and no changes noted. Date Seen by Provider: Jan 13, 2020 Time Seen by Provider: 11:15 Date H&P Reviewed: Jan 13, 2020 Time H&P Reviewed: 11:15 Pre-Operative Diagnosis: hx colon ca NADEEM OROZCO MD Jan 13, 2020 11:21
--- NOTE | 2020-01-13 11:23 | Discharge Inst-Surgical ---
D/C Lap Instructions-PAM Follow Up 5 years Activity as tolerated High Fiber Diet 25g or more per day Avoid Alcohol, Caffeine, Spicy [place] and Acid foods. Drink 64 fluid oz or more of fluids per day. Symptoms to Report: Fever over 101 degree F, Nausea/Vomiting If any problems/questions: Contact your physician or go to Emergency Room NADEEM OROZCO MD Jan 13, 2020 11:23
[2020-01-13] MEDS ORDERED: ONDANSETRON 4 MG/2 ML (SDV) Z0FRAN IVP PRN (11:30)
[2020-01-13] MEDS ORDERED: ACETAMINOPHEN 325 MG TABLET PO PRN (11:30)
[2020-01-13] MEDS ORDERED: HYDROcodone/APAP 5 MG/325 MG (LORTAB) TAB PO PRN (11:30)
[2020-01-13] MEDS ORDERED: morphine INJ 10 MG/ML 1ML (SYR OR VIAL) IVP PRN ×2 (11:30)
[2020-01-13] MEDS ORDERED: fentaNYL INJECTION 100 MCG/2 ML AMP ONE (12:19)
[2020-01-13] MEDS ORDERED: MIDAZOLAM 5 MG/5 ML (VERSED) VIAL ONE ×2 (12:19)
[2020-01-13] MEDS ORDERED: LIDOCAINE JELLY 2% 6 ML SYRINGE ONE (12:20)
[2020-01-13] MEDS: MIDAZOLAM 5 MG/5 ML (VERSED) VIAL IV PRN ×3 (12:22→12:31)
--- NOTE | 2020-01-13 12:50 | Progress Note-Post Operative ---
Post-Operative Progess Note Surgeon (s)/Oil Well Services Superintendent (s) Surgeon NADEEM OROZCO MD Oil Well Services Superintendent: none Pre-Operative Diagnosis hx colon ca Post-Operative Diagnosis normal colon and rectum Procedure & Operative Findings Date of Procedure 01/13/20 Procedure Performed/Findings colonoscopy. Anesthesia Type cs Estimated Blood Loss Estimated blood loss (mL): minimal Specimens/Packing Specimens Removed none NADEEM OROZCO MD Jan 13, 2020 12:50
--- NOTE | 2020-01-13 23:02 | OPERATIVE REPORT ---
DATE OF SERVICE: 01/13/2020 ATTENDING PRIMARY CARE PHYSICIAN: Mami Ray MD PREOPERATIVE DIAGNOSIS: History of colon cancer, status post low anterior colorectal resection in 2016. POSTOPERATIVE DIAGNOSIS: Normal colon and rectum. PROCEDURE: Colonoscopy. SURGEON: Nadeem Orozco MD. ANESTHESIA: Conscious sedation. ESTIMATED BLOOD LOSS: Minimal. FINDINGS: Normal colon and rectum. DISPOSITION: The patient tolerated the procedure well. INDICATIONS: The patient is a 74-year-old male, who was found to have a lesion of the sigmoid -- rectal region in 2016. He was also found to have a lesion of the left lung. He underwent a low anterior colorectal resection in 2016 as well as wedge resection of the lung metastasis. Since that time, he has done well. He has had followup colonoscopies, which were normal and he is again here for a followup colonoscopy. If this colonoscopy is normal, he may wait 5 years for his next colonoscopy. DESCRIPTION OF PROCEDURE: The patient was brought to the endoscopy suite, laid in the left lateral decubitus position. After adequate IV pain and sedative medications and conscious sedation anesthesia, digital rectal examination was performed. Mild chronic stage I external and internal hemorrhoids were identified, which were not actively edematous nor inflamed and no bleeding. Normal sphincter tone was felt and there were no palpable masses. Prostate gland was palpable and appeared normal. The endoscope was then intubated to the anus and rectum gently insufflated. The endoscope was then advanced to the valves of Lane and rectum with no polyps or any neoplasms identified. The area of anastomosis was identified and intact with no recurrent tumors. The endoscope was then advanced and remainder of the descending, transverse and ascending colon to the cecum, which were normal. The endoscope was then slowly withdrawn while taking a second look and suctioning of residual air with no additional findings. The patient tolerated the procedure well. We will recommend a high fiber diet with at least 30 grams of fiber daily as well as significant amounts of water to promote soft stools on a daily basis. He does not need another colonoscopy for another 5 years; however, sooner if he becomes symptomatic. Job ID: [id number] DocumentID: [id number] Dictated Date: 01/13/2020 12:46:17 Project Management Professor Date: 01/13/2020 23:00:41 Dictated By: NADEEM OROZCO MD
== END 2020-01-13 13:45 | disposition home or self-care (01) ==
LOC: ENDO 10:57
PROVIDERS: ATTEND Surgery
DX: Z12.11 Encounter for screening for malignant neoplasm of colon (principal); K64.0 First degree hemorrhoids; Z87.891 Personal history of nicotine dependence; Z79.899 Other long term (current) drug therapy; Z85.118 Personal history of other malignant neoplasm of bronchus and lung; Z85.038 Personal history of other malignant neoplasm of large intestine

== ENCOUNTER → 2020-05-11 | Outpatient (CLI) | payer MEDICARE, OTHER ==
[~2020-05-11] MED LIST changes: -PANT40TA3 PO; +PANT40TA52 PO
[2020-05-11 09:08] LABS: BASOPHILS # (AUTO) 0.1 10^3/uL (0.0-0.1); BASOPHILS % (AUTO) 1 % (0-10); EOSINOPHILS # (AUTO) 0.2 10^3/uL (0.0-0.3); EOSINOPHILS % (AUTO) 2 % (0-10); HEMATOCRIT 44 % (40-54); HEMOGLOBIN 15.1 g/dL (13.3-17.7); LYMPHOCYTES % (AUTO) 23 % (12-44); MEAN CORPUSCULAR HEMOGLOBIN 32 pg (25-34); MEAN CORPUSCULAR HGB CONC 34 g/dL (32-36); MEAN CORPUSCULAR VOLUME 92 fL (80-99); MEAN PLATELET VOLUME 12.1 fL (9.0-12.2); MONOCYTES # (AUTO) 0.7 10^3/uL (0.0-1.0); MONOCYTES % (AUTO) 9 % (0-12); NEUTROPHILS # (AUTO) 5.5 10^3/uL (1.8-7.8); NEUTROPHILS % (AUTO) 65 % (42-75); PLATELET COUNT 153 10^3/uL (130-400); WHITE BLOOD COUNT 8.4 10^3/uL (4.3-11.0)
[2020-05-11 09:28] LABS: ALANINE AMINOTRANSFERASE 16 U/L (0-55); ALBUMIN 4.1 GM/DL (3.2-4.5); ALKALINE PHOSPHATASE 89 U/L (40-136); BILIRUBIN,TOTAL 0.6 MG/DL (0.1-1.0); BUN/CREATININE RATIO 9; CALCIUM 8.7 MG/DL (8.5-10.1); CARBON DIOXIDE 22 MMOL/L (21-32); CHLORIDE 106 MMOL/L (98-107); CREATININE SERUM 1.07 MG/DL (0.60-1.30); GFR ESTIMATED > 60; GLUCOSE 112 MG/DL (70-105); POTASSIUM 3.9 MMOL/L (3.6-5.0); SODIUM 140 MMOL/L (135-145); TOTAL PROTEIN 7.3 GM/DL (6.4-8.2)
== END ==
LOC: EDSTATUS 02-24 08:55 → ONC 08:56
PROVIDERS: ATTEND Internal Medicine Hematology & Oncology
DX: Z01.89 Encounter for other specified special examinations (principal); C34.32 Malignant neoplasm of lower lobe, left bronchus or lung; C18.7 Malignant neoplasm of sigmoid colon
CPT/HCPCS: 80053; 82378; 85025; G0463; 99213

== ENCOUNTER → 2020-11-07 | Outpatient (CLI) | payer MEDICARE, OTHER ==
[~2020-11-07] MED LIST changes: +CATHETER FLUSH 10 ML SYR IV PRN; +HOLD METFORMIN - RECEIVED CONTRAST 20 ML VIAL IV SCH; +IOHEXOL 350 MG/ML 100 ML (OMNIPAQUE 350) VIAL IV ONE; +NS 100 ML (IVPB) BAG IV ONE; -POLY17PO31 PO; +POLY17PO54 PO
--- NOTE | 2020-11-07 10:08 | Diagnostic Imaging Report ---
PROCEDURE: CT chest, abdomen, and pelvis with and without contrast. TECHNIQUE: Precontrast images were obtained of the chest, abdomen, and pelvis. Multiple contiguous axial images were obtained through the chest, abdomen, and pelvis after administration of intravenous contrast. Auto Exposure Controls were utilized during the CT exam to meet ALARA standards for radiation dose reduction. INDICATION: History of lung and colon cancer. COMPARISON: 10/26/2019 FINDINGS: CT chest: Evaluation of the lung love demonstrates 6 mm spiculated micronodule within the suprahilar margins of the left upper lobe (image 51, series 3). This however is stable compared to 01/23/2018. No new suspicious pulmonary nodule or mass is seen. Note is made of background mild emphysematous disease. There is no focal consolidation, large effusion, nor pneumothorax. Cardiomediastinal structures show normal heart size. There is no large pericardial effusion. Ascending thoracic aorta is borderline aneurysmally dilated, as it measures 4 cm in diameter. Moderate calcified aortic and mild calcified coronary atherosclerotic disease is also noted. No pathologically enlarged or morphologically abnormal adenopathy is seen within the mediastinum, nikky, nor axilla. Osseous structures show age-related degenerative changes. No lytic or blastic bony lesions are seen. CT ABDOMEN: Several intermediate ellipsoid hyperdensities are noted within the posterior subcutaneous fat of the right upper abdominal quadrant (image 24, series 5). This however is stable compared to prior exam and may be on the basis of sebaceous cysts. Large left spigelian hernia is identified. Ostium measures 6.7 cm in diameter. There is herniation of multiple loops of small bowel. There is no small bowel wall thickening to suggest strangulation. Proximal small bowel loops are nondistended. There is no evidence of obstruction. Normal appendix is identified. Small hiatal hernia is also noted. Several small gallstones are noted. There is no appreciable gallbladder wall thickening nor pericholecystic free fluid to suggest acute cholecystitis. Kidneys, adrenal glands, spleen, pancreas, and liver have a normal CT appearance. There is no loculated fluid collection, free fluid or free air within the abdomen. No abnormal mesenteric or retroperitoneal adenopathy is seen. Moderate diffuse calcified aortic and arterial atherosclerosis is noted. Osseous structures show no acute abnormalities. CT PELVIS: Urinary bladder is grossly unremarkable. Prostate is enlarged. It measures 5.8 x 4.9 cm. There is no loculated fluid collection, free fluid or free air within the pelvis. No abnormal pelvic adenopathy is identified. Osseous structures show no acute abnormalities. IMPRESSION: 1. Stable small 6 mm spiculated micronodule of the left upper lobe. Stability suggests benignity. 2. No new suspicious pulmonary nodule or mass. 3. No evidence of recurrent or residual metastatic or malignant disease within the abdomen or pelvis. 4. Large left spigelian hernia with involvement of multiple loops of small bowel, but no evidence of small bowel obstruction or strangulation. 5. Cholelithiasis, but no CT evidence of acute cholecystitis. 6. 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 7. Calcified aortic, coronary, and arterial atherosclerosis. Dictated by: Dictated on workstation # [id number]
== END ==
LOC: RAD 09:06
PROVIDERS: ATTEND Nurse Practitioner Adult Health
DX: Z01.89 Encounter for other specified special examinations (principal); C34.90 Malignant neoplasm of unspecified part of unspecified bronchus or lung; C18.7 Malignant neoplasm of sigmoid colon; K80.20 Calculus of gallbladder without cholecystitis without obstruction; I25.10 Atherosclerotic heart disease of native coronary artery without angina pectoris; I70.90 Unspecified atherosclerosis; K43.9 Ventral hernia without obstruction or gangrene; R91.8 Other nonspecific abnormal finding of lung field
CPT/HCPCS: 71270; 74178

== ENCOUNTER 2020-11-09 09:11 | Outpatient (RCR) | payer MEDICARE, OTHER ==
[2020-11-07 08:52] LABS: BASOPHILS % (AUTO) 0 % (0-10); EOSINOPHILS % (AUTO) 0 % (0-10); HEMATOCRIT 46 % (40-54); HEMOGLOBIN 15.4 g/dL (13.3-17.7); LYMPHOCYTES % (AUTO) 11 % (12-44); MEAN CORPUSCULAR HEMOGLOBIN 30 pg (25-34); MEAN CORPUSCULAR HGB CONC 34 g/dL (32-36); MEAN CORPUSCULAR VOLUME 90 fL (80-99); MEAN PLATELET VOLUME 11.8 fL (9.0-12.2); MONOCYTES # (AUTO) 0.2 10^3/uL (0.0-1.0); MONOCYTES % (AUTO) 2 % (0-12); NEUTROPHILS # (AUTO) 8.5 10^3/uL (1.8-7.8); NEUTROPHILS % (AUTO) 87 % (42-75); PLATELET COUNT 178 10^3/uL (130-400); WHITE BLOOD COUNT 9.8 10^3/uL (4.3-11.0)
[2020-11-07 09:15] LABS: ALANINE AMINOTRANSFERASE 22 U/L (0-55); ALBUMIN 4.2 GM/DL (3.2-4.5); ALKALINE PHOSPHATASE 99 U/L (40-136); BILIRUBIN,TOTAL 0.8 MG/DL (0.1-1.0); BUN/CREATININE RATIO 10; CALCIUM 9.1 MG/DL (8.5-10.1); CARBON DIOXIDE 24 MMOL/L (21-32); CHLORIDE 102 MMOL/L (98-107); CREATININE SERUM 1.05 MG/DL (0.60-1.30); GFR ESTIMATED > 60; GLUCOSE 131 MG/DL (70-105); SODIUM 137 MMOL/L (135-145); TOTAL PROTEIN 7.7 GM/DL (6.4-8.2)
[~2020-11-09 09:11] MED LIST changes: -CATHETER FLUSH 10 ML SYR IV PRN; -HOLD METFORMIN - RECEIVED CONTRAST 20 ML VIAL IV SCH; -IOHEXOL 350 MG/ML 100 ML (OMNIPAQUE 350) VIAL IV ONE; -NS 100 ML (IVPB) BAG IV ONE
== END 2021-02-05 | disposition home or self-care (01) ==
LOC: ONC 09:11
PROVIDERS: ATTEND Internal Medicine Hematology & Oncology
DX: C34.32 Malignant neoplasm of lower lobe, left bronchus or lung (principal); C18.7 Malignant neoplasm of sigmoid colon; E87.6 Hypokalemia; E66.9 Obesity, unspecified; Z90.2 Acquired absence of lung [part of]; Z98.890 Other specified postprocedural states; Z92.21 Personal history of antineoplastic chemotherapy; Z90.49 Acquired absence of other specified parts of digestive tract; Z68.31 Body mass index [BMI] 31.0-31.9, adult; Z79.899 Other long term (current) drug therapy; Z79.1 Long term (current) use of non-steroidal anti-inflammatories (NSAID)
CPT/HCPCS: 80053; 82378; 85025; 99213

== ENCOUNTER 2021-02-02 09:03 | Outpatient (CLI) | payer MEDICARE, OTHER ==
[~2021-02-02] VITALS: Ht 180 cm; Wt 93.6 kg
[2021-02-02 09:00] VITALS: BP 123/72
[2021-02-02] MEDS ORDERED: diphenhydrAMINE 50 MG/ML INJ (BENADRYL) IV PRN (09:15)
[2021-02-02] MEDS ORDERED: EPINEPHrine INJECTION 1 MG/ML AMP IM PRN (09:15)
[2021-02-02] MEDS ORDERED: CASIRIVIMAB/IMDEVIMAB 1,200 MG in NS (IVPB) 250 ML IV ONE (09:15)
[2021-02-02 10:40] VITALS: BP 124/72
== END 2021-02-02 11:00 | disposition home or self-care (01) ==
LOC: INFUSION 09:03
PROVIDERS: ATTEND Nurse Practitioner Family
DX: Z23 Encounter for immunization (principal); U07.1 COVID-19

== ENCOUNTER → 2022-04-23 | Outpatient (CLI) | payer MEDICARE, OTHER ==
[~2022-04-23] MED LIST changes: +POTA-169 PO; -POTA20TA8 PO
== END ==
LOC: WOUNDCARE 12:11
PROVIDERS: ATTEND Family Medicine
DX: L40.0 Psoriasis vulgaris (principal); J44.9 Chronic obstructive pulmonary disease, unspecified
CPT/HCPCS: 99212